=== PATIENT | male | born 1985 | race Caucasian/White ===

== ENCOUNTER 2017-07-21 00:07 | Inpatient (IN) ==
[2017-07-21] MEDS ORDERED: *HR* HYDROmorphone (PF) 1 MG/ML SYRINGE IVP ONE ×3 (00:37→05:02)
[2017-07-21] MEDS ORDERED: 0.9 % Sodium Chloride 1,000 ML IVC ONE ×2 (00:37→07:33)
--- NOTE | 2017-07-21 00:41 | Emergency Department Note ---
Disposition Clinical Impression: Acute cholecystitis, Elevated bilirubin Leukocytosis Qualifiers: Leukocytosis type: unspecified Qualified Code(s): D72.829 - Elevated white blood cell count, unspecified Disposition: Admitted As Inpatient Condition: Good General Adult HPI - General Chief complaint: ED Abdominal Pain Stated complaint: abd pain,fever Time Seen by Provider: 07/21/17 00:18 Source: patient Limitations: no limitations Nursing Notes Reviewed: Yes Vital Signs Reviewed: Yes - History of Present Illness HPI Narrative: 32-year-old male who reports he has had right upper quadrant pain that has been constant since this morning. He been having intermittent right upper quadrant pain for the last 1-2 weeks. He was sent home from the emergency department 2 days ago with symptoms of biliary colic. His pain went away but this morning came back and spine constant since this morning. He has not measured his temperature but said that he felt warm earlier. He has had occasional nausea but no vomiting. He reports no other medical problems and takes no medications aside from [place] which was prescribed for the biliary colic. Pain Scale: 6 Improves with: nothing Worsens with: movement Associated symptoms: Reports: denies other symptoms Treatments Prior to Arrival: none - Related Data Previous Rx's Medication Instructions Recorded Cyclobenzaprine [Flexeril] 10 mg PO TID #20 tablet 06/20/16 Ketorolac [Toradol] 10 mg PO Q6HR #10 tablet 06/20/16 Ondansetron ODT [Zofran ODT] 4 mg SL Q6HR PRN #15 tab.rapdis 07/06/17 HYDROcodone/Acet 5/325 mg [[place] 1 tab PO Q6H PRN #10 tab 07/19/17 5-325 mg] Hyoscyamine SL [Levsin SL] 0.125 mg SL Q4HR PRN #10 tab.subl 07/19/17 Allergies Allergy/AdvReac Type Severity Reaction Status Date / Time Penicillins Allergy Anaphylaxis Verified 07/21/17 00:22 All systems ED: reviewed and negative except as stated. ENT ED: Denies: throat pain Respiratory: Denies: cough Gastrointestinal: Reports: abdominal pain, nausea. Denies: vomiting, diarrhea Genitourinary: Denies: dysuria Musculoskeletal: Denies: back pain Integumentary: Denies: rash Neurological: Denies: headache Endocrine: Reports: fatigue Past Medical History - Past Medical History Medical history: Reports: no medical history Psychiatric history: Reports: no psych history - Social History Smoking Status: Current every day smoker Smokeless Tobacco Status: Yes Alcohol use: Reports: occasionally Drug use: Reports: none Physical Exam - General Limitations: no limitations General appearance: alert - Head Head exam: atraumatic - Eye Eye exam: Present: normal appearance - ENT ENT exam: normal exam, normal oropharynx - Neck Neck exam: Present: normal inspection - Chest Chest inspection: Present: normal inspection - Respiratory Respiratory exam: Present: normal lung sounds bilaterally. Absent: respiratory distress - Cardiovascular Cardiovascular exam: Present: normal rhythm, tachycardia - Abdominal Exam Abdominal exam: Present: soft, tenderness (Right upper quadrant. Positive Mares sign. No guarding or rebound) - Extremities Exam Extremities exam: Present: normal inspection - Neurological Exam Neurological exam: Present: alert, oriented X3 - Psychiatric Psychiatric exam: Present: normal affect, normal mood - Skin Skin exam: Present: warm, dry Course Course Narrative: Bedside ultrasound reveals a thickened gallbladder wall. We will obtain a formal ultrasound and get basic lab work and treat his symptoms. U/S shows acute cholecystitis. Will admit to surgery. CBD is 6mm which is upper limits of normal. However it is larger than his prior u/s. Tbili is mildly elevated. No definite stone in CBD on u/s. Stone is present in neck of gallbladder. Dr Perales recommends cipro/flagyl. He accepts the patient for admission. His vitals are stable. Vital Signs Temperature 98.8 F 07/21/17 00:18 Pulse Rate 101 07/21/17 00:18 Respiratory Rate 16 07/21/17 00:18 Blood Pressure 140/98 07/21/17 00:18 O2 Sat by Pulse Oximetry 96 07/21/17 00:18 Temperature 98.8 F 07/21/17 00:18 Pulse Rate 86 07/21/17 05:16 Respiratory Rate 16 07/21/17 05:16 Blood Pressure 145/90 07/21/17 05:16 O2 Sat by Pulse Oximetry 96 07/21/17 05:16 Oxygen Delivery Oxygen Delivery Room Air Medical Decision Making - Medical Records Medical records reviewed: Yes I reviewed the patient's medical records. - Lab Data Lab results reviewed: Yes I reviewed the patient's lab results. Result diagrams: 07/21/17 00:40 07/21/17 00:40 Lab Results 07/21/17 07/21/17 07/21/17 Range/Units 00:40 00:40 00:40 WBC 16.7 H D (4.3-11.1) K/mcL RBC 4.79 (4.19-5.50) M/mcL Hgb 14.9 (12.9-16.9) g/dL Hct 42.9 (37.5-50.1) % MCV 89.6 (83.0-100.0) fL MCH 31.1 (28.0-33.3) pg MCHC 34.7 (31.6-35.5) g/dL RDW 12.6 (11.5-14.5) % Plt Count 315 (140-400) K/mcL MPV 10.0 (9.4-12.4) fL Immature Gran % 0.5 (0-4) % Seg Neutrophils % 73.3 % Lymphocytes % 10.6 % Monocytes % 14.0 % Eosinophils % 1.4 % Basophils % 0.2 % Neutrophils # 12.2 H (1.6-8.9) K/mcL Lymphocytes # 1.8 (0.6-4.6) K/mcL Monocytes # 2.3 H (0.0-1.3) K/mcL Eosinophils # 0.2 (0.0-0.6) K/mcL Basophils # 0.0 (0.0-0.2) K/mcL Immature Plt Fraction 3.3 (1.1-6.1) % PT (9.4-12.1) Seconds INR APTT (26.0-36.0) Seconds Sodium 139 (136-145) mEq/L Potassium 3.6 (3.5-4.5) mEq/L Chloride 101 (98-109) mEq/L Carbon Dioxide 27 (19-29) mEq/L BUN 9 (8-26) mg/dL Creatinine 0.82 (0.72-1.25) mg/dL Est GFR ( Amer) > 60 (> 60) Est GFR (Non-Af Amer) > 60 (> 60) BUN/Creatinine Ratio 11 (6-26) Glucose 109 H (70-99) mg/dL Calculated Osmolality 287 (280-300) Lactic Acid 0.6 (0.5-2.2) mmol/L Calcium 9.6 (8.6-10.8) mg/dL Total Bilirubin 1.3 H D (0.2-1.2) mg/dL Direct Bilirubin 0.6 H (0.0-0.5) mg/dL Indirect Bilirubin 0.7 (0.0-1.2) mg/dL AST 14 (5-34) Units/L ALT 20 (0-55) Units/L Alkaline Phosphatase 85 (38-126) Units/L Serum Total Protein 8.4 H (6.0-8.3) g/dL Albumin 4.4 (3.5-5.0) g/dL Globulin 4.0 H (2.4-3.5) g/dL Albumin/Globulin Ratio 1.1 (1.1-2.2) 07/21/17 Range/Units 00:40 WBC (4.3-11.1) K/mcL RBC (4.19-5.50) M/mcL Hgb (12.9-16.9) g/dL Hct (37.5-50.1) % MCV (83.0-100.0) fL MCH (28.0-33.3) pg MCHC (31.6-35.5) g/dL RDW (11.5-14.5) % Plt Count (140-400) K/mcL MPV (9.4-12.4) fL Immature Gran % (0-4) % Seg Neutrophils % % Lymphocytes % % Monocytes % % Eosinophils % % Basophils % % Neutrophils # (1.6-8.9) K/mcL Lymphocytes # (0.6-4.6) K/mcL Monocytes # (0.0-1.3) K/mcL Eosinophils # (0.0-0.6) K/mcL Basophils # (0.0-0.2) K/mcL Immature Plt Fraction (1.1-6.1) % PT 12.2 H (9.4-12.1) Seconds INR 1.1 APTT 31.0 (26.0-36.0) Seconds Sodium (136-145) mEq/L Potassium (3.5-4.5) mEq/L Chloride (98-109) mEq/L Carbon Dioxide (19-29) mEq/L BUN (8-26) mg/dL Creatinine (0.72-1.25) mg/dL Est GFR ( Amer) (> 60) Est GFR (Non-Af Amer) (> 60) BUN/Creatinine Ratio (6-26) Glucose (70-99) mg/dL Calculated Osmolality (280-300) Lactic Acid (0.5-2.2) mmol/L Calcium (8.6-10.8) mg/dL Total Bilirubin (0.2-1.2) mg/dL Direct Bilirubin (0.0-0.5) mg/dL Indirect Bilirubin (0.0-1.2) mg/dL AST (5-34) Units/L ALT (0-55) Units/L Alkaline Phosphatase (38-126) Units/L Serum Total Protein (6.0-8.3) g/dL Albumin (3.5-5.0) g/dL Globulin (2.4-3.5) g/dL Albumin/Globulin Ratio (1.1-2.2) - Radiology Data Radiology results reviewed: Yes I reviewed the patient's radiology results. Attestation Statement - Attestation Attestation: I examined this patient and my medical decision-making was reviewed with the Resident Physician. I agree with the documented findings, disposition and treatment plan as described except to the extent set forth below. Acute cholecystitis. Antibiotics initiated. Surgical consultation with Dr. Yao and general surgery. Will admit for possible surgical intervention of acute cholecystitis.
[2017-07-21] MEDS ORDERED: Ondansetron 4 MG/2 ML VIAL IVP ONE ×3 (00:45→14:58)
[2017-07-21 00:54] LABS: Basophils % 0.2 %; Eosinophils # 0.2 K/mcL (0.0-0.6); Eosinophils % 1.4 %; Hematocrit 42.9 % (37.5-50.1); Hemoglobin 14.9 g/dL (12.9-16.9); Immature Granulocytes % 0.5 % (0-4); Immature Platelets 3.3 % (1.1-6.1); Lymphocytes # 1.8 K/mcL (0.6-4.6); Lymphocytes % 10.6 %; Mean Corpuscular HGB Conc 34.7 g/dL (31.6-35.5); Mean Corpuscular Hemoglobin 31.1 pg (28.0-33.3); Mean Corpuscular Volume 89.6 fL (83.0-100.0); Monocytes # 2.3 K/mcL (0.0-1.3); Neutrophils # 12.2 K/mcL (1.6-8.9); Platelet Count 315 K/mcL (140-400); Red Blood Count 4.79 M/mcL (4.19-5.50); Red Cell Distribution Width 12.6 % (11.5-14.5); Segmented Neutrophils % 73.3 %
[2017-07-21 01:03] LABS: INR 1.1; Prothrombin Time 12.2 Seconds (9.4-12.1)
[2017-07-21 01:07] LABS: Alanine Aminotransferase 20 Units/L (0-55); Albumin 4.4 g/dL (3.5-5.0); Albumin/Globulin Ratio 1.1 (1.1-2.2); Alkaline Phosphatase 85 Units/L (38-126); Aspartate Amino Transferase 14 Units/L (5-34); BUN/Creatinine Ratio 11 (6-26); Bilirubin,Direct 0.6 mg/dL (0.0-0.5); Bilirubin,Indirect 0.7 mg/dL (0.0-1.2); Blood Urea Nitrogen 9 mg/dL (8-26); Calcium 9.6 mg/dL (8.6-10.8); Carbon Dioxide 27 mEq/L (19-29); Chloride 101 mEq/L (98-109); Glucose 109 mg/dL (70-99); Osmolality,Calculated 287 (280-300); Potassium 3.6 mEq/L (3.5-4.5); Sodium 139 mEq/L (136-145); Total Protein 8.4 g/dL (6.0-8.3); eGFR For African Americans > 60 (> 60); eGFR For Non-African Americans > 60 (> 60)
[2017-07-21 01:09] LABS: Bilirubin,Total 1.3 mg/dL (0.2-1.2)
[2017-07-21] MEDS ORDERED: MetroNIDAZOLE 500 MG/100 ML 500 MG/100 ML BAG IVPB ONE ×2 (03:29→14:26)
[2017-07-21] MEDS ORDERED: *HR* Promethazine 25 MG/ML VIAL IVP PRN ×3 (07:37→17:12)
[2017-07-21 08:15] LABS: Basophils % 0.2 %; Eosinophils # 0.1 K/mcL (0.0-0.6); Eosinophils % 0.3 %; Hematocrit 42.5 % (37.5-50.1); Hemoglobin 14.7 g/dL (12.9-16.9); Immature Granulocytes % 0.6 % (0-4); Lymphocytes # 1.3 K/mcL (0.6-4.6); Lymphocytes % 6.8 %; Mean Corpuscular HGB Conc 34.6 g/dL (31.6-35.5); Mean Corpuscular Hemoglobin 31.2 pg (28.0-33.3); Mean Corpuscular Volume 90.2 fL (83.0-100.0); Mean Platelet Volume 9.9 fL (9.4-12.4); Monocytes # 2.3 K/mcL (0.0-1.3); Monocytes % 12.2 %; Neutrophils # 14.9 K/mcL (1.6-8.9); Platelet Count 286 K/mcL (140-400); Red Blood Count 4.71 M/mcL (4.19-5.50); Red Cell Distribution Width 12.6 % (11.5-14.5); Segmented Neutrophils % 79.9 %
[2017-07-21] MEDS: *HR* HYDROmorphone (PF) 1 MG/ML SYRINGE IVP PRN ×2 (08:24→12:19)
[2017-07-21] MEDS: MetroNIDAZOLE 500 MG/100 ML 500 MG/100 ML BAG IVPB SCH ×2 (08:32→19:46)
[2017-07-21] MEDS ORDERED: Levofloxacin 750 MG/150 ML 750 MG/150 ML BAG IVPB SCH (09:00)
[2017-07-21 09:14] LABS: Amylase 25 Units/L (25-125); Lipase 14 Units/L (8-78)
--- NOTE | 2017-07-21 09:43 | General Surg History&Physical ---
Date of Encounter: 07/21/17 Time of Encounter: 09:16 Assessment and Plan (1) Acute cholecystitis Current Visit: Yes Status: Acute NPO IVF abx consent for [place] follow up labs to ensure T bili is not worsening The assessment and plan as outlined above was discussed with the patient and/or family members who expressed understanding and agreement. All questions were answered. (2) Elevated bilirubin Current Visit: Yes Status: Acute follow up T bili; if worsening, will consult GI for evaluation of biliary tree prior to surgery The assessment and plan as outlined above was discussed with the patient and/or family members who expressed understanding and agreement. All questions were answered. History of Present Illness Chief complaint: abdominal pain HPI: Mr. Quinonez is a 32 year old male with a PMH significant for obesity who presents with several weekhistory of worsening post prandial abdominal pain localized to the RUQ; does not report radiation to R shoulder, but does report associated nausea, vomiting, PO intolerance and anorexia. States the pain alleviates on its own, but is always present. PResents to the ED for further evaluation Past Med Surg Social Fam HX - Past Medical History Medical history: no medical history Psychiatric history: no psych history - Past Surgical History Surgical History: no surgical history - Social History Smoking Status: Current every day smoker Packs per day: .75 Smokeless Tobacco Status: Yes Alcohol use: occasionally Drug use: none - Additional Family History Additional family history: non contributory Medications and Allergies No Known Home Drugs 07/21/17 [History] 3 Allergy/AdvReac Type Severity Reaction Status Date / Time Penicillins Allergy Anaphylaxis Verified 07/21/17 00:22 Review of Systems All systems PM: A 10-system review of systems was performed and is negative for pertinent findings except as documented above in the HPI. General Surgery Exam Initial Vital Signs Temp Pulse Resp BP Pulse Ox 98.8 F 101 16 140/98 96 07/21/17 00:18 07/21/17 00:18 07/21/17 00:18 07/21/17 00:18 07/21/17 00:18 - General physical appearance well developed, well nourished, no distress - Eyes other (no scleral icterus) - Respiratory normal expansion, normal respiratory effort - Cardiovascular Cardiovascular exam: Present: RRR - Abdomen Abdomen general surgery: Present: soft, tender Abdominal Tenderness: Present: RUQ ((+)ramos's sign) - Integumentary Integumentary general surgery: Present: warm and dry - Neurologic Present: CN 2-12 grossly intact - Psychiatric Psychiatric general surgery: Present: A&Ox3 Results - Labs 07/21/17 07:57 07/21/17 00:40 Abnormal lab results WBC 18.7 K/mcL (4.3-11.1) H 07/21/17 07:57 Neutrophils # 14.9 K/mcL (1.6-8.9) H 07/21/17 07:57 Monocytes # 2.3 K/mcL (0.0-1.3) H 07/21/17 07:57 PT 12.2 Seconds (9.4-12.1) H 07/21/17 00:40 Glucose 109 mg/dL (70-99) H 07/21/17 00:40 Total Bilirubin 1.3 mg/dL (0.2-1.2) H D 07/21/17 00:40 Direct Bilirubin 0.6 mg/dL (0.0-0.5) H 07/21/17 00:40 Serum Total Protein 8.4 g/dL (6.0-8.3) H 07/21/17 00:40 Globulin 4.0 g/dL (2.4-3.5) H 07/21/17 00:40 All other labs normal. - Imaging US - abdomen: report reviewed, image reviewed (cholecystitis)
[2017-07-21 11:16] LABS: Alanine Aminotransferase 18 Units/L (0-55); Albumin 3.7 g/dL (3.5-5.0); Albumin/Globulin Ratio 0.9 (1.1-2.2); Alkaline Phosphatase 76 Units/L (38-126); Aspartate Amino Transferase 13 Units/L (5-34); BUN/Creatinine Ratio 11 (6-26); Bilirubin,Total 1.1 mg/dL (0.2-1.2); Blood Urea Nitrogen 8 mg/dL (8-26); Carbon Dioxide 26 mEq/L (19-29); Chloride 102 mEq/L (98-109); Glucose 112 mg/dL (70-99); Osmolality,Calculated 285 (280-300); Potassium 4.1 mEq/L (3.5-4.5); Sodium 138 mEq/L (136-145); Total Protein 7.7 g/dL (6.0-8.3); eGFR For African Americans > 60 (> 60); eGFR For Non-African Americans > 60 (> 60)
[2017-07-21] MEDS: 0.9 % Sodium Chloride 1,000 ML IVC SCH ×2 (12:29→19:45)
--- NOTE | 2017-07-21 13:46 | Anesthesia Evaluation PreOp ---
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 LOCAL History: Denies Any Significant HX Other Medical History: Denies Any Significant HX, Other (obesity) Anesthesia History: No Prior Anesthetic Complications, Past Anesthesia Alcohol Use: occasionally Drug use: none Medications and Allergies No Known Home Drugs 07/21/17 [History] 3 Allergy/AdvReac Type Severity Reaction Status Date / Time Penicillins Allergy Anaphylaxis Verified 07/21/17 00:22 - Meds/Allergy Pre-op Review Medications Reviewed: Yes Allergies Reviewed: Yes Beta Blockers on Current Med List: No Anesthesia Results - Labs 07/21/17 07:57 07/21/17 10:43 Anesthesia Exam Selected Entries 07/21/17 11:45 Temperature 98.1 F Pulse Rate 96 Respiratory Rate 16 Blood Pressure 136/84 O2 Sat by Pulse Oximetry 96 Weight: 129kg - HEENT Pupil (Motor): EOMI Mallampati: II Teeth: Normal Oral Opening: Greater than 3 - LOAD DISPATCHER LOCAL LOC: Oriented LOAD DISPATCHER LOCAL Motor: Normal RUE, Normal LUE, Normal RLE, Normal LLE, Normal Face LOAD DISPATCHER LOCAL Sensory: Normal: RUE, LUE, RLE, LLE, Face - Cardiac Rhythm: Regular Murmur: None - Pulmonary Breath Sounds: bilateral Clear Respiratory Effort: Symmetrical Anesthesia Assess/Plan ASA Score: 2 Modified Jayy Scale for Level of Consciousness: Cooperative, oriented, and tranquil Anesthetic Plan: General Monitoring Plan: Standard Monitors Recovery Plan: PACU (discussed GA, agrees to proceed)
[2017-07-21] MEDS ORDERED: Dexamethasone 4 MG/ML VIAL ONE (14:08)
[2017-07-21] MEDS ORDERED: Lidocaine -MPF 2% 2 ML VIAL ONE (14:08)
[2017-07-21] MEDS ORDERED: Ondansetron 4 MG/2 ML VIAL ONE (14:08)
[2017-07-21] MEDS ORDERED: *HR* Rocuronium Bromide 50 MG/5 ML VIAL ONE ×2 (14:08→15:35)
[2017-07-21] MEDS ORDERED: *HR* FentaNYL (PF) 100 MCG/2 ML VIAL ONE (14:08)
[2017-07-21] MEDS ORDERED: *HR* HYDROmorphone 2 MG/ML SYRINGE ONE (14:08)
[2017-07-21] MEDS ORDERED: *HR* Succinylcholine 200 MG/10 ML VIAL IVP ONE (14:08)
[2017-07-21] MEDS ORDERED: *HR* Propofol 200 MG/20 ML VIAL IVP ONE (14:08)
[2017-07-21] MEDS ORDERED: Levofloxacin 750 MG/150 ML 750 MG/150 ML BAG IVPB ONE (14:38)
[2017-07-21] MEDS ORDERED: Aztreonam 2,000 MG in D5% in Water (Mini-Bag+) 100 ML IVPB ONE (14:49)
[2017-07-21] MEDS ORDERED: *HR* HYDROmorphone (PF) 1 MG/ML SYRINGE IVP PRN (14:58)
[2017-07-21] MEDS ORDERED: *HR* Labetalol 20 MG/4 ML SYRINGE IVP PRN (14:58)
[2017-07-21] MEDS ORDERED: Ketorolac 15 MG/ML VIAL IVP ONE (14:58)
[2017-07-21] MEDS ORDERED: Dexamethasone 4 MG/ML VIAL IVP ONE (14:58)
[2017-07-21] MEDS ORDERED: *HR* Meperidine 25 MG/ML SYRINGE IVP PRN (14:58)
[2017-07-21] MEDS ORDERED: Aztreonam 2,000 MG in Water for inj. (sterile) 20 ML IVP ONE (15:00)
[2017-07-21] MEDS ORDERED: Neostigmine Methylsulfate 3 MG/3 ML SYRINGE ONE (15:12)
--- NOTE | 2017-07-21 16:43 | Operative Note ---
Date of procedure: 07/21/17 Pre-op diagnosis: acute cholecystitis Post-op diagnosis: same Procedure: laparoscopic cholecystectomy Implants: none Complications: none Anesthesia: GETA Local Anesthetics: 0.5% Sensorcaine HCL SubQ (cc) Surgeon: Rivas Perales Train Dispatcher: Molly Butcher Estimated blood loss (cc): 20 Specimen: gallbladder and contents Condition: stable Disposition: PACU Procedure in Detail: The patient was brought into the operating room suite and was placed in the supine position. Mechanical DVT prophylaxis was applied. A time-in was conducted. The patient underwent smooth induction of anesthesia. Preoperative antibiotics were given. The patient was prepped and draped in the usual fashion. A time-out was held identifying the correct patient, pathology, and procedure. Everyone was in agreement and we began the procedure. Incision to Dissection I started by creating a 10mm supraumbilical incision. Via open Dov technique I did enter into the abdomen. Using a Vicryl on a UR-6 needle, I reapproximated, but did not close the fascia in a [id number] fashion. I inserted the 10mm, 30 degree camera, ensured that I did not cause intraabdominal injury upon entry, and quickly identified the gallbladder. It does possess a 'andrea's egg blue' hue. I created a 5mm incision in the epigastric region followed by two more 5mm incision, one at the midclavicular line, the last at the anterior axillary line. Using laparoscopic graspers I managed to elevate the gallbladder above the liver. I grasp the edge of the gallbladder to retract laterally. Using the [place] instrument as well as the hook-electrocautery, I dissected out the cystic duct and the cystic artery. It should be stated that the gall bladder was significantly inflammed. I had to decompress the gallbladder prior to dissection. I suctioned green bile. In addition, there was ascites above the liver which I also suctioned. There are very dense adhesions and lots of edema with electrocautery. plans were significantly distored. However, I was able to visualize the critical view of safety using blunt dissection to reveal the cystic duct and artery. There was another artery whihc looked consistent with the right hepatic in the pharmacy clinical coordinator aspect of the CVS. Critical view of Safety to Excison of the gallbladder I then clipped both structures using metal clips, two on the stay side, one on the specimen side. Using laparoscopic scissors, I cut between the clip on the specimen side and the first clip on the stay side. Then using tension and counter-tension, I used the electrocautery to excise the gallbladder off of the liver bed. Again, it should be stated that plans were severely distorted. I did encounter bleeding from the liver bed, but this was controlled prior to completing the excision of the gallbladder. Before complete excision, I evaluated the liver bed to ensure there 1.) there was no bleeding, 2. No excessive bile leakage, and 3.) to evaluate my clips. There was no bleeding, bile leakage, and the clips were all the way across both duct and artery. Removal of gallbladder to Closure I switched out the 10mm camera fo the 5mm camera and inserted the endocatch bag into the umbilical port. I placed the specimen into the bag and retrieved it through the umbilical port. I did have to extend my fascial and skin incision to allow for the retrieval of the specimen. I replaced the 5mm camera with the 10mm camera, irrgiated the liver bed and above the liver before suctioning both irrigation fluid and air. I removed the 5mm ports, turned off the insufllation , then removed the 10mm umbilical port. I then close the umbilical fascia using the vicryl suture in an interrupted fashion. All incisions were closed with interrupted 4-0 monocryl, except the umbilical incision which was closed with a running suture, and sealed with dermabond. The patient tolerated the procedure well and went back to PACU in stable condition.
--- NOTE | 2017-07-21 16:50 | Anesthesia Evaluation Post Op ---
Date of Encounter: 07/21/17 Time of Encounter: 16:50 - Vital Signs Vital Signs: Selected Entries 07/21/17 16:21 07/21/17 16:41 Temperature 100.9 F H Pulse Rate 113 Respiratory Rate 13 Blood Pressure 121/82 O2 Sat by Pulse Oximetry 94 Oxygen Flow Rate (LPM) 2 - Lungs Lungs: Clear Ascult./Percussion - Airway Airway: Non-obstructed - Cardiovascular Regular Rate - Mental Status Mental Status: Alert & Oriented, Answers Appropriately - Pain Pain Scale: 0 - Nausea Vomiting Nausea Vomiting: Present - Hydration Hydration: Ice chips, Has not voided - Discharge PostOp Status: Transfer Patient to floor
[2017-07-21] MEDS: D5% in 0.45% NACL w KCl 20 MEQ/1,000 ML MLS IVC SCH (17:57)
[2017-07-21] MEDS: *HR* OxyCODONE/APAP 7.5/325 TABLET PO PRN ×2 (19:40→23:48)
[2017-07-22] MEDS ORDERED: MetroNIDAZOLE 500 MG/100 ML 500 MG/100 ML BAG IVPB SCH
[2017-07-22] MEDS ORDERED: Furosemide 40 MG/4 ML VIAL IVP ONE (00:56)
--- NOTE | 2017-07-22 01:03 | Internal Medicine Consult Note ---
<Henry Quijano - Last Filed: 07/22/17 01:37> Date of Encounter: 07/22/17 Time of Encounter: 01:02 - Assessment and Plan (1) Shortness of breath Current Visit: Yes Status: Acute Assessment and plan: - New onset post op. No previous medical history of cardiac or pulmonary disease - CXR shows bilateral increased opacities with decreased lung volumes. - Saturating in mid 90s on 2L supplimental O2. - Likely secondary to pulmonary edema vs aspiration PNA following surgery - Will give 40 Lasix IV once and monitor for improvement. - Pt is already on flagyl and levaquin - Will closely monitor for decompensation (2) Tachycardia Current Visit: Yes Status: Acute Assessment and plan: - Likely reactive to SOB, pain - Will treat shortness of breath as above and monitor for improvement. - Consider ativan for anxiety if dyspnea improves and he can tolerate it. Internal Medicine - CN: HPI - Data of Consult Consult date: 07/22/17 Requesting Physician: Rivas Perales MD - Consult Narrative Reason for consult: post op SOB History of present illness: Mr. Quinonez is a 32 year old male who underwent laparoscopic cholecystectomy this afternoon for acute cholecystitis. He tolerated the procedure well and was admitted for observation overnight. He has no previous medical history. At approximately midnight this evening, pt began to experience new onset SOB. He was seen at bedside shortly after. He states that his SOB was sudden onset. He denies any symptoms of fevers, chills, nausea, vomiting but admits to some upper right sided chest discomfort that is constant and not reproducible. Chest Xray showed increased bilateral opacities representing either pulmonary edema vs pneumonia. Past Med Surg Social Fam HX - Past Medical History Medical history: no medical history Psychiatric history: no psych history - Past Surgical History Surgical History: no surgical history - Social History Smoking Status: Current every day smoker Packs per day: .75 Smokeless Tobacco Status: Yes Alcohol use: occasionally Drug use: none - Constitutional Constitutional: no chills, no excessive sweating, no fever(s) - Cardiovascular Cardiovascular ROS IM: chest pain, dyspnea, no diaphoresis, no edema, no palpitations - Respiratory Respiratory: cough, dyspnea - Gastrointestinal Gastrointestinal: no abdominal pain - Neurological Neurological ROS: no confusion, no dizziness, no focal weakness Internal Medicine - CN: Meds No Known Home Drugs 07/21/17 [History] 3 Allergy/AdvReac Type Severity Reaction Status Date / Time Penicillins Allergy Anaphylaxis Verified 07/21/17 00:22 Internal Medicine - CN: Exam - Constitutional Vitals: Temp Pulse Resp BP Pulse Ox 98.6 F 122 16 115/70 93 07/21/17 20:54 07/21/17 20:54 07/21/17 20:54 07/21/17 20:54 07/21/17 20:54 General appearance IM: Present: mild distress, A&O X 3, answers questions appropriately - Head Head exam: Present: atraumatic - Respiratory Respiratory exam: Present: decreased breath sounds, rales, tachypnea - Cardiovascular Cardiovascular exam IM: Present: +S1, +S2, tachycardia. Absent: irregular rhythm - GI/Abdominal Additional comments: incisional wounds covered with dermabond. no obvious signs of infection. Internal Medicine - CN: Reslt - Labs CBC & Chem 7: 07/21/17 07:57 07/21/17 10:43 Labs: Short CBC 07/21/17 Range/Units 07:57 WBC 18.7 H (4.3-11.1) K/mcL Hgb 14.7 (12.9-16.9) g/dL Hct 42.5 (37.5-50.1) % Plt Count 286 (140-400) K/mcL Neutrophils # 14.9 H (1.6-8.9) K/mcL BMP 07/21/17 10:43 Sodium 138 Potassium 4.1 Chloride 102 Carbon Dioxide 26 BUN 8 Creatinine 0.75 Glucose 112 H Calcium 9.0 Liver Function 07/21/17 Range/Units 10:43 Total Bilirubin 1.1 (0.2-1.2) mg/dL AST 13 (5-34) Units/L ALT 18 (0-55) Units/L Alkaline Phosphatase 76 (38-126) Units/L Albumin 3.7 (3.5-5.0) g/dL - ABG Interpretation ABG results: PT/INR, D-dimer PT 12.2 Seconds (9.4-12.1) H 07/21/17 00:40 - Impressions Impressions Chest X-Ray 07/22/17 00:10 IMPRESSION: Interval development of patchy bilateral opacity. Although some of this is secondary to bronchovascular crowding from low lung volumes, pulmonary edema and pneumonia is considered as well. Consider further evaluation with PA and lateral chest radiograph. D/ / Karthikeyan Mora MD / Karthikeyan Mora MD Interpreting Provider: Karthikeyan Mora MD Consult Discharge Plan - Plan Referrals: NONE,PCP [Primary Care Provider] - <Eugenio Alex H - Last Filed: 07/22/17 02:58> Date of Encounter: 07/22/17 Internal Medicine - CN: HPI - Data of Consult Requesting Physician: Rivas Perales MD - Consult Narrative History of present illness: Mr. Quinonez is a 32 year old male Internal Medicine - CN: Exam - Constitutional Vitals: Temp Pulse Resp BP Pulse Ox 98.6 F 120 24 137/88 95 07/21/17 23:45 07/21/17 23:45 07/21/17 23:45 07/21/17 23:45 07/21/17 23:45 Internal Medicine - CN: Reslt - Labs CBC & Chem 7: 07/21/17 07:57 07/21/17 10:43 Labs: Short CBC 07/21/17 Range/Units 07:57 WBC 18.7 H (4.3-11.1) K/mcL Hgb 14.7 (12.9-16.9) g/dL Hct 42.5 (37.5-50.1) % Plt Count 286 (140-400) K/mcL Neutrophils # 14.9 H (1.6-8.9) K/mcL BMP 07/21/17 10:43 Sodium 138 Potassium 4.1 Chloride 102 Carbon Dioxide 26 BUN 8 Creatinine 0.75 Glucose 112 H Calcium 9.0 Liver Function 07/21/17 Range/Units 10:43 Total Bilirubin 1.1 (0.2-1.2) mg/dL AST 13 (5-34) Units/L ALT 18 (0-55) Units/L Alkaline Phosphatase 76 (38-126) Units/L Albumin 3.7 (3.5-5.0) g/dL - ABG Interpretation ABG results: PT/INR, D-dimer PT 12.2 Seconds (9.4-12.1) H 07/21/17 00:40 - Impressions Impressions Chest X-Ray 07/22/17 00:10 IMPRESSION: Interval development of patchy bilateral opacity. Although some of this is secondary to bronchovascular crowding from low lung volumes, pulmonary edema and pneumonia is considered as well. Consider further evaluation with PA and lateral chest radiograph. D/ / Karthikeyan Mora MD / Karthikeyan Mora MD Interpreting Provider: Karthikeyan Mora MD - Attending Attestation Chest x-ray shows : Interval development of patchy bilateral opacity. Although some of this is secondary to bronchovascular crowding from low lung volumes, pulmonary edema and pneumonia is considered as well. Acute hypoxic respiratory failure secondary to Possible aspiration pneumonia versus acute pulmonary edema The patient feels better after receiving Lasix although he is a still very tachycardic. Difficult to differentiate between pneumonia and pulmonary edema, order CT scan of the chest stat. Continue Levaquin and Flagyl for now ( allergic to penicillin ), may add more Lasix if pulmonary edema is confirmed Thank you for allowing us to participate in the care of this patient time spent on this consult 40 minutes. High risk for respiratory failure I examined this patient and my medical decision-making was reviewed with the Resident Physician. I agree with the documented findings, disposition and treatment plan as described except to the extent set forth below.
[2017-07-22] MEDS: *HR* HYDROmorphone (PF) 1 MG/ML SYRINGE IVP PRN ×6 (02:06→22:10)
[2017-07-22] MEDS: D5% in 0.45% NACL w KCl 20 MEQ/1,000 ML MLS IVC SCH ×3 (03:41→20:05)
[2017-07-22 05:51] LABS: Basophils % 0.1 %; Hematocrit 39.7 % (37.5-50.1); Hemoglobin 13.9 g/dL (12.9-16.9); Immature Granulocytes % 0.6 % (0-4); Immature Platelets 3.5 % (1.1-6.1); Lymphocytes # 1.7 K/mcL (0.6-4.6); Lymphocytes % 6.9 %; Mean Corpuscular Hemoglobin 31.2 pg (28.0-33.3); Mean Corpuscular Volume 89.2 fL (83.0-100.0); Mean Platelet Volume 9.8 fL (9.4-12.4); Monocytes # 3.9 K/mcL (0.0-1.3); Monocytes % 16.4 %; Neutrophils # 18.2 K/mcL (1.6-8.9); Platelet Count 314 K/mcL (140-400); Red Blood Count 4.45 M/mcL (4.19-5.50); Red Cell Distribution Width 12.9 % (11.5-14.5)
[2017-07-22 06:07] LABS: Alanine Aminotransferase 30 Units/L (0-55); Albumin/Globulin Ratio 0.8 (1.1-2.2); Alkaline Phosphatase 68 Units/L (38-126); Aspartate Amino Transferase 24 Units/L (5-34); BUN/Creatinine Ratio 11 (6-26); Bilirubin,Total 0.8 mg/dL (0.2-1.2); Blood Urea Nitrogen 8 mg/dL (8-26); Calcium 8.4 mg/dL (8.6-10.8); Carbon Dioxide 25 mEq/L (19-29); Chloride 104 mEq/L (98-109); Glucose 133 mg/dL (70-99); Osmolality,Calculated 286 (280-300); Potassium 3.8 mEq/L (3.5-4.5); Sodium 138 mEq/L (136-145); eGFR For African Americans > 60 (> 60); eGFR For Non-African Americans > 60 (> 60)
[2017-07-22] MEDS ORDERED: Acetaminophen 325 MG TABLET PO PRN (06:44)
[2017-07-22] MEDS ORDERED: *HR* Enoxaparin 40 MG/0.4 ML SYRINGE SQ SCH (07:35)
[2017-07-22] MEDS ORDERED: Meropenem 500 MG in 0.9 % Sodium Chloride Mini Bag 100 ML IVPB SCH (08:00)
--- NOTE | 2017-07-22 08:15 | Electrocardiograph Report ---
[place] [id number] Test Date: 2017-07-22 Pat Name: Haris Quinonez Department: 115 Room: 3A15 Gender: M [employer] Tender: [id number] : 1985 Requested By: Rivas Perales Order Number: [id number] Reading MD: Michelle Jacobson Measurements Intervals [place] Rate: 127 P: 23 ND: 151 QRS: 46 QRSD: 91 T: -21 QT: 335 QTc: 410 Interpretive Statements SINUS TACHYCARDIA NONSPECIFIC T-WAVE ABNORMALITY Electronically Signed On 07-22-2017 8:14:11 EDT by Michelle Jacobson
--- NOTE | 2017-07-22 08:47 | General Surgery Progress Note ---
Date of Encounter: 07/22/17 Time of Encounter: 08:44 - Assessment and Plan (1) Acute cholecystitis Current Visit: Yes Status: Acute POD#1 s/p lap [place]; patient significantly improved clinically, but vitals and labs suggest he is still septic - advance diet as tolerated to reg diet - PO pain meds - cont IV abx - repeat labs in AM - continue vitals q4 likley home in AM (2) Sepsis Current Visit: Yes Status: Acute leukocytosis, tachycardia, shortness of breath overnight - related to acute cholecystitis - cont IV abx - repeat CBC in AM - vitals q4 - cont supportive care - expect to resolve in 24-36hrs Qualifiers: Sepsis type: sepsis due to unspecified organism Qualified Code(s): A41.9 - Sepsis, unspecified organism (3) Elevated bilirubin Current Visit: Yes Status: Acute resolved Subjective Patient reports: no new complaints, feels better, still having pain, pain is less, tolerating liquids well, shortness of breath, fever, other (tachycardia) Objective Vital Signs - Last 8 Hours Temp Pulse Resp BP Pulse Ox 07/22/17 08:10 99.7 F H 113 18 125/85 95 07/22/17 06:43 124/87 07/22/17 06:29 101.3 F H 115 18 146/104 94 07/22/17 04:11 99.6 F 122 20 120/70 95 Intake and Output 07/21/17 07/22/17 07/22/17 23:59 07:59 15:59 Intake Total 480 / 480 1200 / 1200 Output Total 570 / 570 900 / 900 Balance -90 / -90 300 / 300 Intake: IV Fluids 1100 / 1100 KCl 20mEq IN D5%-0.45 NACL 20 1000 / 1000 meq In 1,000 ml @ 125 mls/hr IVC .Q8H [facility] Rx#:[id number] Flagyl Premix 500 MG/100 ML 500 100 / 100 mg In 100 ml @ 100 mls/hr IVPB Q8HR [facility] Rx#:[id number] Oral 480 / 480 100 / 100 Output: Urine 550 / 550 900 / 900 Estimated Blood Loss 20 / 20 Other: Meal Dinner Weight 133 kg Patient Weight 07/22/17 23:59 Weight 133 kg - General physical appearance well developed, well nourished, no distress - Eyes other (no scleral icterus) - ENT normocephalic - Respiratory normal expansion, normal respiratory effort - Cardiovascular Cardiovascular exam: Present: RRR - Abdomen Abdomen: Present: soft, tender (appropriately tender, primarily at umbilical incision) - Incision Incision: Present: clean and dry, intact - Integumentary no rash - Neurologic CN 2-12 grossly intact - Psychiatric oriented to time, oriented to person, oriented to place - Labs 07/22/17 05:44 07/22/17 05:44 Diabetes panel 07/21/17 07/22/17 Range/Units 10:43 05:44 Sodium 138 138 (136-145) mEq/L Potassium 4.1 3.8 (3.5-4.5) mEq/L Chloride 102 104 (98-109) mEq/L Carbon Dioxide 26 25 (19-29) mEq/L BUN 8 8 (8-26) mg/dL Creatinine 0.75 0.76 (0.72-1.25) mg/dL Glucose 112 H 133 H (70-99) mg/dL Calcium 9.0 8.4 L (8.6-10.8) mg/dL AST 13 24 (5-34) Units/L ALT 18 30 (0-55) Units/L Alkaline Phosphatase 76 68 (38-126) Units/L Albumin 3.7 3.0 L (3.5-5.0) g/dL Calcium panel 07/21/17 07/22/17 Range/Units 10:43 05:44 Calcium 9.0 8.4 L (8.6-10.8) mg/dL Albumin 3.7 3.0 L (3.5-5.0) g/dL Pituitary panel 07/21/17 07/22/17 Range/Units 10:43 05:44 Sodium 138 138 (136-145) mEq/L Potassium 4.1 3.8 (3.5-4.5) mEq/L Chloride 102 104 (98-109) mEq/L Carbon Dioxide 26 25 (19-29) mEq/L BUN 8 8 (8-26) mg/dL Creatinine 0.75 0.76 (0.72-1.25) mg/dL Glucose 112 H 133 H (70-99) mg/dL Calcium 9.0 8.4 L (8.6-10.8) mg/dL Adrenal panel 07/21/17 07/22/17 Range/Units 10:43 05:44 Sodium 138 138 (136-145) mEq/L Potassium 4.1 3.8 (3.5-4.5) mEq/L Chloride 102 104 (98-109) mEq/L Carbon Dioxide 26 25 (19-29) mEq/L BUN 8 8 (8-26) mg/dL Creatinine 0.75 0.76 (0.72-1.25) mg/dL Glucose 112 H 133 H (70-99) mg/dL Calcium 9.0 8.4 L (8.6-10.8) mg/dL Total Bilirubin 1.1 0.8 (0.2-1.2) mg/dL AST 13 24 (5-34) Units/L ALT 18 30 (0-55) Units/L Alkaline Phosphatase 76 68 (38-126) Units/L Albumin 3.7 3.0 L (3.5-5.0) g/dL - VTE Documentation of Mechanical Device: Intermittent pneumatic compression device Consult Discharge Plan - Plan Referrals: NONE,PCP [Primary Care Provider] -
[2017-07-22] MEDS ORDERED: Levofloxacin 750 MG/150 ML 750 MG/150 ML BAG IVPB SCH (09:00)
[2017-07-22] MEDS: *HR* Enoxaparin 40 MG/0.4 ML SYRINGE SQ SCH (09:00)
--- NOTE | 2017-07-22 09:26 | Event Note ---
Date of Encounter: 07/22/17 Time of Encounter: 08:45 Patient is feeling better this morning. Remains tachycardic. Did have fever earlier this morning with MAXIMUM TEMPERATURE of 101.3. Continue management for sepsis related to acute cholecystitis versus possible aspiration pneumonitis. Continue current antibiotics. IV hydration. Monitor vitals closely. Follow culture results. Incentive spirometry. We will repeat chest x -ray in AM
[2017-07-22] MEDS: *HR* OxyCODONE/APAP 7.5/325 TABLET PO PRN ×2 (13:11→21:00)
[2017-07-22] MEDS: Meropenem 1,000 MG in Water for inj. (sterile) 10 ML IVP SCH ×2 (13:47→21:00)
[2017-07-23] MEDS: *HR* HYDROmorphone (PF) 1 MG/ML SYRINGE IVP PRN ×3 (02:43→12:42)
[2017-07-23] MEDS: Meropenem 1,000 MG in Water for inj. (sterile) 10 ML IVP SCH ×3 (03:47→19:26)
[2017-07-23] MEDS: D5% in 0.45% NACL w KCl 20 MEQ/1,000 ML MLS IVC SCH ×2 (04:22→14:05)
[2017-07-23 05:49] LABS: Basophils % 0.2 %; Eosinophils # 0.2 K/mcL (0.0-0.6); Eosinophils % 1.1 %; Hematocrit 36.4 % (37.5-50.1); Immature Granulocytes % 0.6 % (0-4); Lymphocytes # 1.9 K/mcL (0.6-4.6); Lymphocytes % 12.3 %; Mean Corpuscular Hemoglobin 30.8 pg (28.0-33.3); Mean Corpuscular Volume 93.3 fL (83.0-100.0); Mean Platelet Volume 10.3 fL (9.4-12.4); Monocytes # 2.1 K/mcL (0.0-1.3); Monocytes % 13.2 %; Neutrophils # 11.5 K/mcL (1.6-8.9); Platelet Count 291 K/mcL (140-400); Red Cell Distribution Width 13.2 % (11.5-14.5); Segmented Neutrophils % 72.6 %
[2017-07-23] MEDS: *HR* Enoxaparin 40 MG/0.4 ML SYRINGE SQ SCH (06:01)
[2017-07-23] MEDS: *HR* OxyCODONE/APAP 7.5/325 TABLET PO PRN ×4 (06:06→21:13)
--- NOTE | 2017-07-23 07:56 | Discharge Summary ---
Date of Encounter: 07/24/17 Time of Encounter: 09:25 - Discharge Diagnosis (1) Acute cholecystitis Priority: Primary Status: Acute (2) Sepsis Priority: Primary Status: Acute Qualifiers: Sepsis type: sepsis due to unspecified organism Qualified Code(s): A41.9 - Sepsis, unspecified organism (3) Elevated bilirubin Priority: Secondary Status: Acute - Discharge Medications Prescriptions: OxyCODONE/APAP 7.5/325 [Percocet 7.5/325 MG] 1 each PO Q6HR PRN 7 Days #28 tablet PRN Reason: Pain Docusate [Colace] 100 mg PO DAILY 7 Days #7 capsule levoFLOXacin [Levaquin] 750 mg PO DAILY 6 Days #6 tablet metroNIDAZOLE [Flagyl] 500 mg PO TID 6 Days #18 tablet Tramadol HCl [Ultram] 50 mg PO BID PRN 7 Days #14 tab PRN Reason: Pain Home Medications: Docusate [Colace] 100 mg PO DAILY 7 Days #7 capsule 07/23/17 [Rx] OxyCODONE/APAP 7.5/325 [Percocet 7.5/325 MG] 1 each PO Q6HR PRN 7 Days #28 tablet 07/23/17 [Rx] Tramadol HCl [Ultram] 50 mg PO BID PRN 7 Days #14 tab 07/23/17 [Rx] levoFLOXacin [Levaquin] 750 mg PO DAILY 6 Days #6 tablet 07/23/17 [Rx] metroNIDAZOLE [Flagyl] 500 mg PO TID 6 Days #18 tablet 07/23/17 [Rx] Allergies/Adverse Reactions: 3 Allergy/AdvReac Type Severity Reaction Status Date / Time Penicillins Allergy Anaphylaxis Verified 07/21/17 00:22 General Surgery Exam Initial Vital Signs Temp Pulse Resp BP Pulse Ox 98.8 F 101 16 140/98 96 07/21/17 00:18 07/21/17 00:18 07/21/17 00:18 07/21/17 00:18 07/21/17 00:18 - General physical appearance well nourished - Eyes other (no scleral icterus), normal ocular movement - Respiratory normal expansion, normal respiratory effort, clear to auscultation - Cardiovascular Cardiovascular exam: Present: RRR - Abdomen Abdomen general surgery: Present: soft, tender (appropriately tender to palpation; non peritoneal) - Incision Incision: Present: clean and dry, intact - Integumentary Integumentary general surgery: Present: warm and dry - Neurologic Present: CN 2-12 grossly intact - Psychiatric Psychiatric general surgery: Present: A&Ox3 Date of admission: 07/21/17 07:33 Primary care physician: PCP SCOTTY Consults: 07/22/17 00:02 Consult to Hospitalist [CONS] Routine Consulting Provider: Hospitalist Marie Reason for Consult: SOB Call Completed: Yes Discharging clinician: Rivas Perales Anticipated date of discharge: 07/24/17 - Patient Status Disposition: Home, Self-Care Condition: Good Functional capacity at discharge: independent ambulation Overall status at discharge: patient is back to baseline - Discharge Instructions Instructions: Sepsis (DC) Follow Up With: Rivas Perales MD [Non-Partnered Physician] - NONE,PCP [Primary Care Provider] - Additional Instructions: Pain Narcotics are prescribed. 1-2 tabs every 6 hours. Please take with meals. DO NOT drive while taking narcotics. Activity As tolerated. However, I encourage you to limit heaving lifting and strenuous activity until evaluated in clinic. Diet As tolerated. Please start with liquids for the first 6 hours after surgery. Your meal after 6 hours can be a regular diet. Bowel Regimen As long as you are taking narcotics, please take the stool softner daily. Warnings If you experience significant redness around the incision or drainage from the incision that is purulent or malodorous, or you experience fevers, chills, or food intolerance (including nausea, vomiting, abdominal pain or distension), jaundice or yellow skin, eyes, tongue/cheek, or any symptoms you feel warrant evaluation, please call the office. If unable to reach the office, please go to nearest urgent care center or emergency department - Diet and Activity Activity: increase activity as tolerated, return to work once cleared by your PCP/specialist (see me in the office prior to clearance for work), resume usual activities as tolerated Diet: advance to your usual diet - Hospital Course Hospital course: Mr. Quinonez is a 32 year old male with a PMH significant for obesity who presented with sepsis secondary to acute cholecystitis. He was started on antibiotics and taken to the operating room. He underwent a laparoscopic cholecystectomy on 07/21. Post procedurally he was started on a liquid diet. POD#1 - He tolerated the liquid diet and was advanced to a regular diet. He had an episode of shortness of breath, he was tachycardic, and requiring oxygen to keep his oxygen saturations above 92%, all related to his sepsis. The decision was made to keep him another day so he could resolve his sepsis. I continued supportive care with IVF, pain control and IV antibiotics POD#2: He was tolerating a regular diet. Having good UOP. He is ambulating and had good pain control. His vitals and WBC were trending back to normal range. He met discharge criteria and was subsequently discharged home. Time spent discussing smoking cessation with patient: more than 10 minutes - Time Spent with Patient Total time spent providing and/or coordinating discharge services: Greater than 30 minutes Specific discharge activities: activity as tolerated. no driving on narocotics. diet as tolerated. if you experience any worsening abdominal pain , jaundice (yellowing of your skin), slceral icterus (yellowing of your eyes), nausea, vomiting, poor tolerance of food or liquids, chest pain, shortness of breath, redness of your incisions or drainage or any symptoms you feel warrant evaluation, call our office of report to the emergency department. Procedures and tests throughout hospitalization: US: 07/21 -cholelithiasis. 1 stone appears impacted in the gallbladder neck. The wall of the gallbladder is moderately to markedly thickened measuring up to 1.9 cm. There is acoustic shadowing from the gallbladder wall suggesting possible emphysematous cholecystitis. There is mild pericholecystic fluid. There was a positive sonographic Mares sign. Common bile duct is upper limits of normal measuring 6 mm. Common duct previously measured 3 mm. WBC: 15.8-->23.9 Tbili: 1.3 Labs on day of discharge: Labs from last 24 hours 07/23/17 05:03 WBC 15.8 H RBC 3.90 L Hgb 12.0 L D Hct 36.4 L MCV 93.3 MCH 30.8 MCHC 33.0 RDW 13.2 Plt Count 291 MPV 10.3 Immature Gran % 0.6 Seg Neutrophils % 72.6 Lymphocytes % 12.3 Monocytes % 13.2 Eosinophils % 1.1 Basophils % 0.2 Neutrophils # 11.5 H Lymphocytes # 1.9 Monocytes # 2.1 H Eosinophils # 0.2 Basophils # 0.0 - Impressions ITS Impressions Chest X-Ray 07/22/17 00:10 IMPRESSION: Interval development of patchy bilateral opacity. Although some of this is secondary to bronchovascular crowding from low lung volumes, pulmonary edema and pneumonia is considered as well. Consider further evaluation with PA and lateral chest radiograph. D/ / Karthikeyan Mora MD / Karthikeyan Mora MD Interpreting Provider: Karthikeyan Mora MD Chest CT 07/22/17 02:53 IMPRESSION: 1. Bilateral lower lobe atelectasis versus pneumonia. 2. Scattered pulmonary nodules are probably granulomas. Recommend follow-up: In a low-risk patient, CT at 3-6 months, then consider CT at 18-24 months. In a high-risk patient, CT at 3-6 months, then CT at 18-24 months. D/ / Kasi Calderon MD / Kasi Calderon MD Interpreting Provider: Kasi Calderon MD Chest X-Ray 07/23/17 04:00 IMPRESSION: Improving bilateral airspace disease. D/ / Kasi Calderon MD / Kasi Calderon MD Interpreting Provider: Kasi Calderon MD
[2017-07-23] MEDS ORDERED: Ipratropium/Albuterol Neb 3 ML IH PRN (09:25)
[2017-07-23] MEDS ORDERED: Ipratropium/Albuterol Neb 3 ML IH ONE (09:25)
--- NOTE | 2017-07-23 12:41 | Internal Med Progress Note ---
Date of Encounter: 07/23/17 Time of Encounter: 11:45 - Assessment and plan (1) Pneumonia Current Visit: Yes Status: Acute Assessment and plan: Most likely chemical pneumonitis due to gastric secretions. Chest x-ray done today shows improving bibasilar space disease. WBC count is improving. Patient is receiving IV antibiotics for acute cholecystitis. Wean FiO2. Qualifiers: Pneumonia type: aspiration pneumonia Aspiration pneumonia type: due to gastric secretions Laterality: bilateral Lung location: lower lobe of lung Qualified Code(s): J69.0 - Pneumonitis due to inhalation of food and vomit (2) Acute cholecystitis Current Visit: Yes Status: Acute Assessment and plan: Continue supportive care per surgery recommendations. Pain control. Transition to oral pain medications. Continue antibiotics per surgery recommendations (3) Sepsis Current Visit: Yes Status: Acute Assessment and plan: Resolving. Due to pneumonitis and cholecystitis. Qualifiers: Sepsis type: sepsis due to unspecified organism Qualified Code(s): A41.9 - Sepsis, unspecified organism (4) Shortness of breath Current Visit: Yes Status: Acute Assessment and plan: Most likely due to atelectasis and pneumonitis. Wean FiO2. Patient also has a is a chronic smoker. Can use bronchodilators as needed to help treat symptoms if he develops wheezing. - Subjective Interval history: Patient is awake and alert. Sitting up in chair. He says he feels miserable due to pain and reports shortness of breath. He is concerned that he has not yet ambulated. Pain controlled when he gets his pain medications but worsens soon after. Denies any chest pain. No fever reported overnight. - Constitutional Vitals: Temp Pulse Resp BP Pulse Ox 98.4 F 112 21 116/71 94 07/23/17 06:55 07/23/17 06:55 07/23/17 10:11 07/23/17 06:55 07/23/17 10:11 General appearance: Present: mild distress, A&O X 3, answers questions appropriately - Respiratory Respiratory exam: Present: prolonged expiratory phase. Absent: accessory muscle use, rales, rhonchi, wheezes - Cardiovascular Cardiovascular exam: Present: RRR, +S1, +S2. Absent: diastolic murmur, gallop, rubs, systolic murmur - GI/Abdominal GI/Abdominal exam: Present: normal bowel sounds, soft, no peritoneal signs. Absent: distended, tenderness - Extremities Exam Extremities exam: Present: warm, radial pulses palpable and symmetrical. Absent : calf tenderness, cyanotic, pedal edema Internal Medicine: Result - Labs CBC & Chem 7: 07/23/17 05:03 07/22/17 05:44 Labs: Short CBC 07/23/17 Range/Units 05:03 WBC 15.8 H (4.3-11.1) K/mcL Hgb 12.0 L D (12.9-16.9) g/dL Hct 36.4 L (37.5-50.1) % Plt Count 291 (140-400) K/mcL Neutrophils # 11.5 H (1.6-8.9) K/mcL - ABG Interpretation ABG results: PT/INR, D-dimer PT 12.2 Seconds (9.4-12.1) H 07/21/17 00:40 - Impressions Impressions Chest X-Ray 07/23/17 04:00 IMPRESSION: Improving bilateral airspace disease. D/ / Kasi Calderon MD / Kasi Calderon MD Interpreting Provider: Kasi Calderon MD Chest X-Ray 07/23/17 11:50 IMPRESSION: Stable small left lower lobe infiltrate which may represent atelectasis versus pneumonia. D/ / 07/23/2017 12:36:34 Greyson Hilliard MD / [facility] Interpreting Provider: Greyson Hilliard MD - VTE Documentation of Mechanical Device: Intermittent pneumatic compression device Consult Discharge Plan - Plan Instructions: Sepsis (DC) Additional Instructions: Pain Narcotics are prescribed. 1-2 tabs every 6 hours. Please take with meals. DO NOT drive while taking narcotics. Activity As tolerated. However, I encourage you to limit heaving lifting and strenuous activity until evaluated in clinic. Diet As tolerated. Please start with liquids for the first 6 hours after surgery. Your meal after 6 hours can be a regular diet. Bowel Regimen As long as you are taking narcotics, please take the stool softner daily. Warnings If you experience significant redness around the incision or drainage from the incision that is purulent or malodorous, or you experience fevers, chills, or food intolerance (including nausea, vomiting, abdominal pain or distension), jaundice or yellow skin, eyes, tongue/cheek, or any symptoms you feel warrant evaluation, please call the office. If unable to reach the office, please go to nearest urgent care center or emergency department Referrals: Rivas Perales MD [Non-Partnered Physician] - NONE,PCP [Primary Care Provider] - Prescriptions: OxyCODONE/APAP 7.5/325 [Percocet 7.5/325 MG] 1 each PO Q6HR PRN 7 Days #28 tablet PRN Reason: Pain Docusate [Colace] 100 mg PO DAILY 7 Days #7 capsule levoFLOXacin [Levaquin] 750 mg PO DAILY 6 Days #6 tablet metroNIDAZOLE [Flagyl] 500 mg PO TID 6 Days #18 tablet Tramadol HCl [Ultram] 50 mg PO BID PRN 7 Days #14 tab PRN Reason: Pain
[2017-07-23] MEDS: Ibuprofen 800 MG TABLET PO SCH ×2 (14:04→19:27)
[2017-07-23 14:51] LABS: Alanine Aminotransferase 29 Units/L (0-55); Albumin 3.1 g/dL (3.5-5.0); Albumin/Globulin Ratio 0.7 (1.1-2.2); Alkaline Phosphatase 82 Units/L (38-126); Aspartate Amino Transferase 20 Units/L (5-34); BUN/Creatinine Ratio 14 (6-26); Bilirubin,Total 0.7 mg/dL (0.2-1.2); Blood Urea Nitrogen 11 mg/dL (8-26); Calcium 9.2 mg/dL (8.6-10.8); Carbon Dioxide 26 mEq/L (19-29); Chloride 99 mEq/L (98-109); Globulin 4.2 g/dL (2.4-3.5); Glucose 125 mg/dL (70-99); Magnesium 1.9 mg/dL (1.6-2.6); Osmolality,Calculated 281 (280-300); Phosphorous 2.7 mg/dL (2.3-4.7); Potassium 3.9 mEq/L (3.5-4.5); Sodium 135 mEq/L (136-145); Total Protein 7.3 g/dL (6.0-8.3); eGFR For African Americans > 60 (> 60); eGFR For Non-African Americans > 60 (> 60)
[2017-07-24] MEDS: Meropenem 1,000 MG in Water for inj. (sterile) 10 ML IVP SCH (04:05)
[2017-07-24] MEDS: Ibuprofen 800 MG TABLET PO SCH (04:06)
[2017-07-24 04:45] LABS: Basophils % 0.3 %; Eosinophils # 0.4 K/mcL (0.0-0.6); Eosinophils % 3.1 %; Hematocrit 35.9 % (37.5-50.1); Hemoglobin 12.2 g/dL (12.9-16.9); Immature Granulocytes % 0.9 % (0-4); Lymphocytes # 1.7 K/mcL (0.6-4.6); Lymphocytes % 12.2 %; Mean Corpuscular Hemoglobin 30.4 pg (28.0-33.3); Mean Corpuscular Volume 89.5 fL (83.0-100.0); Mean Platelet Volume 10.3 fL (9.4-12.4); Monocytes # 2.1 K/mcL (0.0-1.3); Neutrophils # 9.8 K/mcL (1.6-8.9); Platelet Count 295 K/mcL (140-400); Red Blood Count 4.01 M/mcL (4.19-5.50); Red Cell Distribution Width 13.2 % (11.5-14.5); Segmented Neutrophils % 68.5 %
[2017-07-24] MEDS: *HR* Enoxaparin 40 MG/0.4 ML SYRINGE SQ SCH (05:57)
[2017-07-24] MEDS: *HR* OxyCODONE/APAP 7.5/325 TABLET PO PRN (06:02)
[2017-07-24 07:50] VITALS: BP 101/68
== END 2017-07-24 10:30 | disposition home or self-care (01) | DRG 417 ==
LOC: 3ANU 00:07 → EMEROO 00:07 → 3ANU 06:06
PROVIDERS: ADMIT Surgery; ATTEND Surgery

== ENCOUNTER 2017-08-05 10:50 | Inpatient (IN) ==
[~2017-08-05 10:50] MED LIST: *HR* Amiodarone 150 MG/3 ML VIAL IVPB ONE; *HR* Amiodarone Premix 360 MG/200 ML BAG IVC ONE; Aminoglycoside Consult 1 EACH MC ONE; Clindamycin 600 MG/50 ML IV.SOLN IVPB ONE
[2017-08-05] MEDS ORDERED: *HR* Adenosine 6 MG/2 ML VIAL IVP ONE ×2 (10:59→11:28)
[2017-08-05] MEDS ORDERED: Calcium Gluconate 1,000 MG in D5% in Water 100 ML IVPB ONE (11:11)
[2017-08-05] MEDS ORDERED: 0.9 % Sodium Chloride 2,000 ML ONE (11:12)
[2017-08-05] MEDS ORDERED: Aspirin 325 MG TABLET PO ONE (11:28)
[2017-08-05] MEDS ORDERED: 0.9 % Sodium Chloride 1,000 ML IVC ONE (11:28)
[2017-08-05] MEDS ORDERED: Amiodarone Premix 150 MG/100 ML BAG IVPB ONE (11:32)
[2017-08-05] MEDS ORDERED: *HR* Heparin 5,000 UNIT/ML VIAL IVP PRN ×2 (11:36)
[2017-08-05] MEDS ORDERED: *HR* Heparin 5,000 UNIT/ML VIAL IVP ONE (11:36)
[2017-08-05] MEDS ORDERED: *HR* Midazolam HCl 2 MG/2 ML VIAL ONE ×2 (11:42→11:44)
[2017-08-05] MEDS ORDERED: *HR* FentaNYL (PF) 100 MCG/2 ML VIAL ONE (11:42)
[2017-08-05 11:43] LABS: Basophils % 0.1 %; Hematocrit 32.1 % (37.5-50.1); Hemoglobin 10.6 g/dL (12.9-16.9); Immature Granulocytes % 1.1 % (0-4); Lymphocytes # 1.3 K/mcL (0.6-4.6); Lymphocytes % 5.7 %; Mean Corpuscular Hemoglobin 30.2 pg (28.0-33.3); Mean Corpuscular Volume 91.5 fL (83.0-100.0); Mean Platelet Volume 9.3 fL (9.4-12.4); Monocytes # 3.3 K/mcL (0.0-1.3); Monocytes % 14.3 %; Neutrophils # 18.2 K/mcL (1.6-8.9); Platelet Count 590 K/mcL (140-400); Red Blood Count 3.51 M/mcL (4.19-5.50); Red Cell Distribution Width 13.3 % (11.5-14.5); Segmented Neutrophils % 78.8 %
[2017-08-05] MEDS ORDERED: Heparin 25,000 UNIT/500 ML D5W 25,000 UNIT/500 ML MLS IVC SCH (11:45)
[2017-08-05 11:49] LABS: Activated Partial Thrombo Time 32.3 Seconds (26.0-36.0)
[2017-08-05 11:53] LABS: BUN/Creatinine Ratio 15 (6-26); Blood Urea Nitrogen 12 mg/dL (8-26); Calcium 8.5 mg/dL (8.6-10.8); Carbon Dioxide 23 mEq/L (19-29); Chloride 104 mEq/L (98-109); Glucose 123 mg/dL (70-99); Osmolality,Calculated 281 (280-300); Potassium 4.2 mEq/L (3.5-4.5); Sodium 135 mEq/L (136-145); eGFR For African Americans > 60 (> 60); eGFR For Non-African Americans > 60 (> 60)
[2017-08-05 12:15] LABS: Thyroid Stimulating Hormone 0.657 mcIU/mL (0.350-4.840)
[2017-08-05] MEDS ORDERED: Cefepime HCl 2,000 MG in Water for inj. (sterile) 20 ML IVP SCH (12:17)
[2017-08-05] MEDS ORDERED: Vancomycin 2,000 MG in D5% in Water 500 ML IVPB ONE (12:17)
[2017-08-05] MEDS ORDERED: Ondansetron 4 MG/2 ML VIAL IVP ONE (12:18)
[2017-08-05] MEDS ORDERED: 0.9 % Sodium Chloride 1,000 ML ONE ×2 (12:23→12:46)
[2017-08-05] MEDS ORDERED: *HR* Midazolam HCl 5 MG/5 ML VIAL IVP ONE ×4 (12:25→14:02)
[2017-08-05] MEDS ORDERED: *HR* FentaNYL (PF) 250 MCG/5 ML VIAL ONE ×3 (12:25→13:03)
[2017-08-05 12:26] LABS: INR 1.6; Prothrombin Time 16.9 Seconds (9.4-12.1)
[2017-08-05] MEDS ORDERED: *HR* Etomidate 20 MG/10 ML AMPUL IVP ONE (12:28)
[2017-08-05] MEDS ORDERED: *HR* Rocuronium Bromide 50 MG/5 ML VIAL ONE ×3 (12:28→14:01)
[2017-08-05] MEDS ORDERED: *HR* EPINEPHrine 1 MG/ML AMPUL ONE ×2 (12:28→12:29)
[2017-08-05] MEDS ORDERED: *HR* Heparin 10,000 UNIT/10 ML VIAL ONE (12:46)
[2017-08-05] MEDS ORDERED: Verapamil 5 MG/2 ML VIAL ONE (12:46)
[2017-08-05] MEDS ORDERED: Heparin 1,000 UNITS/500 mL NS 500 ML ONE (12:46)
[2017-08-05] MEDS ORDERED: Nitroglycerin 1,000 MCG/10 ML VIAL IV ONE (12:46)
[2017-08-05] MEDS ORDERED: *HR* Phenylephrine 10 MG/ML VIAL ONE (12:51)
--- NOTE | 2017-08-05 12:56 | Invasive Diagnostic Lab Proc ---
Name: Haris Quinonez Date of Study: 08/05/2017 Date: 1985 Ht: 68.1in Medical Record#: [id number] Age: 32 Wt: 291.01lb Gender: Male BSA: 2.4 Order #: [id number] BMI: 44.1 Physicians Procedure Physician: Uriel Ibarra MD, [facility] Referring MD: Referring MD: Indications Indication Cardiac Tamponade Procedures Performed Procedure PERICARDIOCENTESIS Pre-Procedure Checklist Informed consent is complete signed and on chart. H&P is on chart. ID band is on and ID verified with patient. Patient NPO for procedure The procedure was described for the patient and questions were answered. Blood Pressure: 138/79 ECG is on chart. Rhythm: Sinus Tachycardia Plan of Care Patient will tolerate the procedure without complications. Adequate level of comfort will be maintained. Hemodynamics will remain stable Patient will recover from procedure without complications. Respiratory function will be maintained. Cardiac rhythm will remain stable. Patient temperature will be maintained. Patient and/or family have verbalized understanding of the procedure. Patient Education Chief Complaint/Reason for Test: Pericardialcentesis Developmental Category: Adult (18-64 years) Developmentally Appropriate for Age: Yes Learning Barriers: None Education Needs: Procedure Education Method: Verbal Information Taught: Pericardialcentesis Educational Evaluation: Able to repeat information Intravenous Access Time IV Size Location DC'd Fluid/Drip Rate Units RN 18g 1 1/4" Patent On Arrival Lt Antecubital Amiodarone 1 mg/hr Ruth Sarabia RN Allergies Penicillins Vital Signs Time BP (mmHg) HR (bpm) O2 Sat. RR (bpm) LOC 12:20 PM / % 4 = Oriented but drowsy 12:19 PM 138 / 79 182 100 % 43 12:24 PM 104 / 93 157 100 % 23 12:29 PM 104 / 82 168 100 % 46 Procedural Medications Time Medication Dose Units Method Given By 12:24 PM Lidocaine 2% 8 ml Subcutaneous Uriel Ibarra MD, FACC 12:25 PM Versed 2 mg Intravenous uRth Sarabia RN 12:25 PM Fentanyl 25 mcg Intravenous Ruth Sarabia RN 12:32 PM Versed 1 mg Intravenous Ruth Sarabia RN 12:32 PM Fentanyl 25 mcg Intravenous Ruth Sarabia RN Jp Score Preprocedure Postprocedure Activity 2- Moves 4 extremities sustained head lift Activity 2- Moves 4 extremities sustained head lift Circulation 2- SBP +/= 20 points of pre-anesthetic level Circulation 2- SBP +/= 20 points of pre-anesthetic level Consciousness 2- Awake and alert oriented x 3 Consciousness 2- Awake and alert oriented x 3 O2 Saturation 2- Able to maintain O2 satruation of 92% on room air O2 Saturation 2- Able to maintain O2 satruation of 92% on room air Respiratory 2- Able to deep breathe and cough well Respiratory 2- Able to deep breathe and cough well Total Score 10 Total Score 10 Contrast Agent: Isovue Procedure Log Time Note Enter By 12:17 PM Pt arrived to [facility] laboratory assistant 2 at 12:16 [facility] 12:17 PM Patient charges- Angio tray pack, Navilyst 3mm J, Pulse Oximetry and ACIST tubing and transducer [facility] 12:17 PM CathStat 12:18 PM Hair removed from procedure site in holding area using clippers. Chest prepped with Chloraprep by Jenni Dickson RN, safety strap applied then patient was draped. Skin intact. [facility] 12:18 PM Procedure start 12:18 12:19 PM Vitals capture started with the following parameters, Patient=Adult, Interval=5 min, Initial Owoazexd=205 mmHg, Deflation Rate=5 mmHg, Cuff placed on Right Arm 12:19 PM TE=003 bpm, ZBAQ=932/79 mmhg, DxG7=718.0 %, Resp=43 B/min 12:23 PM Equipment: Swapna Tray and Angio tray pack. 12:23 PM [facility] 12:24 PM LJ=396 bpm, QFUT=654/93 mmhg, EuR9=197.0 %, Resp=23 B/min 12:24 PM Time: 12:24 8 ml Lidocaine 2% to mid chest Subcutaneous Given by Uriel Ibarra MD, [facility] 12:25 PM Time: 12:25 Versed 2 mg Intravenous Given by Ruth Sarabia RN [facility] 12:25 PM Time: 12:25 Fentanyl 25 mcg Intravenous Given by Ruth Sarabia RN [facility] 12:28 PM NIBP STAT measurement started. 12:29 PM UW=725 bpm, CBIK=892/82 mmhg, KgO0=993.0 %, Resp=46 B/min 12:31 PM Time: 12:20LOC: 4 = Oriented but drowsy [facility] 12:31 PM echo used to assist with access [facility] 12:32 PM Time: 12:32 Versed 1 mg Intravenous [facility] 12:33 PM Time: 12:32 Fentanyl 25 mcg Intravenous Given by [facility] 12:35 PM Vitals capture stopped. 12:[address] Calderon arrived to lab. Patient transferred to the OR. [facility] 12:38 PM Procedure completed at 12:38 [facility] 12:49 PM Complications: None monalisa Complications Complication None Hemodynamics Post Procedure Information Site Checks Time Location Status Staff Sheath In? Note subxyphoid Oozing Darinel De La Torre RT (R) Pulses Updated by RT Tuan (R) on 08/05/2017 12:49:51 PM electronically signed on 08/05/2017 12:51:53 PM with status of Final
--- NOTE | 2017-08-05 13:12 | Anesthesia Evaluation PreOp ---
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 Anesthesia History: No Prior Anesthetic Complications, Past Anesthesia (tanvir [place] 07/21) Alcohol Use: occasionally Drug use: none Medications and Allergies No Known Home Drugs 08/05/17 [History] 3 Allergy/AdvReac Type Severity Reaction Status Date / Time Penicillins Allergy Anaphylaxis Verified 07/21/17 00:22 - Meds/Allergy Pre-op Review Medications Reviewed: Yes Allergies Reviewed: Yes Beta Blockers on Current Med List: No Anesthesia Results - Labs 08/05/17 11:36 08/05/17 11:36 Anesthesia Exam Selected Entries 08/05/17 10:52 Temperature 98.2 F Pulse Rate 206 Respiratory Rate 18 Blood Pressure 100/87 O2 Sat by Pulse Oximetry 97 Oxygen Flow Rate (LPM) 2 NPO (# of Hours): unknown - HEENT Pupil (Motor): EOMI Mallampati: IV Teeth: Normal Oral Opening: Greater than 3 - 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
--- NOTE | 2017-08-05 13:37 | Anesthesia Procedures ---
Date of Encounter: 08/05/17 Time of Encounter: 12:40 Procedures: Anesthesia - Arterial Line Consent obtained: verbal consent Time out performed: Yes Sedation: Versed (mg): 3 Sedation: Fentanyl (mcg): 100 Supplemental Oxygen via Nasal Cannula (L/min): 5 Size (Gauge): 20 Length (inches): 1 3/4 Technique Used: sterile prep, guide wire technique, direct puncture technique Post-Procedure: line taped into place, dry sterile dressing placed Patient tolerated procedure: well, no complications Complications: none Site: Brachial R (attempt in radial without success, placed in brachial. Placed emergently by Rivas Licona CRNA)
--- NOTE | 2017-08-05 13:42 | Emergency Department Note ---
Disposition Clinical Impression: Pericardial effusion, Atrial fibrillation with RVR, SOB (shortness of breath) Leukocytosis Qualifiers: Leukocytosis type: unspecified Qualified Code(s): D72.829 - Elevated white blood cell count, unspecified Disposition: Admitted As Inpatient Condition: Critical General Adult HPI - General Chief complaint: ED Arrhythmia/Palpitations Stated complaint: palpitations Time Seen by Provider: 08/05/17 10:52 Source: patient Limitations: no limitations Nursing Notes Reviewed: Yes Vital Signs Reviewed: Yes - History of Present Illness HPI Narrative: 32-year-old male with no past medical history presents to the emergency department after 3 days of worsening shortness of breath. Patient was seen in urgent care where they found that he was in atrial fibrillation with RVR with a rate of 200. They administered adenosine 6 mg, and then 12 mg, patient was refractory to it. Patient was sent here to the emergency department. Patient is complaining of shortness of breath, chest tightness. Patient states that he has had a fever the past week, and some cough. Patient recently had a cholecystectomy performed on July 20. Patient denies any unilateral leg swelling, hemoptysis, history of DVTs. Patient denies any history of arrhythmias in the past. Pain Scale: 9 - Related Data Home Medications Medication Instructions Recorded Confirmed No Known Home Drugs 08/05/17 08/05/17 Allergies Allergy/AdvReac Type Severity Reaction Status Date / Time Penicillins Allergy Anaphylaxis Verified 07/21/17 00:22 All systems ED: reviewed and negative except as stated. Review of Systems: As Per HPI Constitutional: Reports: fever Cardiovascular: Reports: chest pain, palpitations. Denies: syncope Respiratory: Reports: cough, dyspnea. Denies: hemoptysis, sputum production Gastrointestinal: Denies: abdominal pain, nausea, vomiting Musculoskeletal: Reports: back pain Past Medical History - Past Medical History Medical history: Reports: no medical history Surgical history: Reports: no surgical history Psychiatric history: Reports: no psych history - Social History Smoking Status: Current every day smoker Smokeless Tobacco Status: Yes Alcohol use: Reports: occasionally Drug use: Reports: none Physical Exam General: 32-year-old male who appears to be significantly short of breath, in severe distress Head: autraumatic, EOMI, no conjuncitval pallor, no scleral icterus, Mouth: oral mucous membranes moist Neck: neck soft, trachea midline Chest:: Equal chest wall rise Lungs: Normal lungs sounds bilaterally, no wheezes, no respiratory distress Heart: Irregular rate, tachycardic, irregular rhythm. Abdomen: soft, non-tender, no rigidity, no guarding, no rebdound tenderness Lower Extremities: no pedal edema, calves non-tender Integumentary: Flushed, diaphoretic Neuro: Alert and oriented to person, place, time. Psych: normal affect, normal mood - General Limitations: no limitations General appearance: alert, in no apparent distress Course Vital Signs Temperature 98.2 F 08/05/17 10:52 Pulse Rate 206 08/05/17 10:52 Respiratory Rate 18 08/05/17 10:52 Blood Pressure 100/87 08/05/17 10:52 O2 Sat by Pulse Oximetry 97 08/05/17 10:52 Temperature 98.2 F 08/05/17 10:52 Pulse Rate 96 08/05/17 17:00 Respiratory Rate 22 08/05/17 17:00 Blood Pressure 108/70 08/05/17 17:00 O2 Sat by Pulse Oximetry 92 08/05/17 17:00 Oxygen Delivery Oxygen Delivery Nasal Cannula Medical Decision Making - [facility] Narrative Medical decision making narrative: 32-year-old male presents to the emergency department with shortness of breath, chest tightness radiating to his back in atrial fibrillation with rapid ventricular response with a rate of 200 bpm. Patient's blood pressure was stable at 115/80 with minor variation throughout the entire visit. We gave the patient 6 mg IV adenosine push, and patient did not respond. We proceeded to push 15 mg IV diltiazem and this lowered the heart rate some into the 160s. We did a repeat bolus of 10 mg IV Cardizem and heart rate remained the same. We are administering IV normal saline as well as 1000 mg of calcium gluconate as a blood pressure of this patient was tenuous. Bedside ultrasound performed by Dr. Tovar revealed a significant pericardial effusion. At that time, the hide curer and associate professor of english were consulted on the case. They came down to the emergency department at bedside. Recommendations were to initiate amiodarone over 30 minutes, however, patient started having worsening chest tightness and shortness of breath. The risks of possible clot spreading peripherally was discussed with patient at bedside versus benefits of performing the emergent cardioversion. He agreed to be cardioverted. Patient was sedated with fentanyl and Versed. Patient was synchronized cardioverted at 200 J biphasic. The patient's heart rate lowered to the 100s, and then went back up into the 200s again. Patient was cardioverted a second time. Patient was again unresponsive to it. Patient is developing increasing shortness of breath. Stat echo performed shows significant pericardial effusion as well as right ventricular compression with concern for tamponade not. Cardiothoracic surgeon Dr. Calderon was consulted and agreed to have patient sent to the operating room for an emergent pericardial window. The operating room was called and patient was sent up. Basic labs reveal a leukocytosis of 23.1. Blood cultures were obtained on this patient and patient was administered broad- spectrum antibiotics. Vancomycin and aztreonam were administered as this patient has a penicillin allergy. I discussed the plan with the patient's father who was understandably upset about the event. He understood the concern for this patient. Also consulted his surgeon Dr. Perales who recently operated on his gallbladder 2 weeks ago. Patient was critical and in severe distress at time of transfer to the operating room. Echocardiogram Limited Views 08/05/17 11:30 Impressions: LVEF >70%. Normal LV chamber size, wall thickness and function. Large circumferential pericardial effusion present. There is echocardiographic evidence of tamponade. There is compression of the right ventricle. The IVC is not dilated. < 50% respiratory change. ER notified. Dr. Park already aware and plan of action already established. Left Ventricular Wall Motion: Rest Echo Findings All wall segments showed normal motion. Findings: Study Quality * Technically adequate exam. ECG Findings * Atrial fibrillation, RVR. Left Ventricle * LVEF >70%. * Normal LV chamber size, wall thickness and function. Right Ventricle * Normal right ventricular size with evidence of compression from pericardial effusion. Left Atrium * Normal left atrial size. Right Atrium * Right atrium is not well visualized. Pericardium * Large circumferential pericardial effusion present. * There is echocardiographic evidence of tamponade. There is compression ofthe right ventricle. IVC * The IVC is not dilated. * < 50% respiratory change. - Medical Records Medical records reviewed: Yes I reviewed the patient's medical records. - Lab Data Lab results reviewed: Yes I reviewed the patient's lab results. Result diagrams: 08/05/17 15:26 08/05/17 15:26 Lab Results 08/05/17 08/05/17 08/05/17 Range/Units 11:36 11:36 11:36 WBC 23.1 H (4.3-11.1) K/mcL RBC 3.51 L (4.19-5.50) M/mcL Hgb 10.6 L (12.9-16.9) g/dL Hct 32.1 L (37.5-50.1) % MCV 91.5 (83.0-100.0) fL MCH 30.2 (28.0-33.3) pg MCHC 33.0 (31.6-35.5) g/dL RDW 13.3 (11.5-14.5) % Plt Count 590 H (140-400) K/mcL MPV 9.3 L (9.4-12.4) fL Immature Gran % 1.1 (0-4) % Seg Neutrophils % 78.8 % Lymphocytes % 5.7 % Monocytes % 14.3 % Eosinophils % 0.0 % Basophils % 0.1 % Neutrophils # 18.2 H (1.6-8.9) K/mcL Lymphocytes # 1.3 (0.6-4.6) K/mcL Monocytes # 3.3 H (0.0-1.3) K/mcL Eosinophils # 0.0 (0.0-0.6) K/mcL Basophils # 0.0 (0.0-0.2) K/mcL PT 16.9 H (9.4-12.1) Seconds INR 1.6 APTT 32.3 (26.0-36.0) Seconds Sodium 135 L (136-145) mEq/L Potassium 4.2 (3.5-4.5) mEq/L Chloride 104 (98-109) mEq/L Carbon Dioxide 23 (19-29) mEq/L BUN 12 (8-26) mg/dL Creatinine 0.79 (0.72-1.25) mg/dL Est GFR ( Amer) > 60 (> 60) Est GFR (Non-Af Amer) > 60 (> 60) BUN/Creatinine Ratio 15 (6-26) Glucose 123 H (70-99) mg/dL Calculated Osmolality 281 (280-300) Calcium 8.5 L (8.6-10.8) mg/dL Troponin I (0-0.03) ng/mL TSH 0.657 (0.350-4.840) mcIU/mL 08/05/17 Range/Units 11:36 WBC (4.3-11.1) K/mcL RBC (4.19-5.50) M/mcL Hgb (12.9-16.9) g/dL Hct (37.5-50.1) % MCV (83.0-100.0) fL MCH (28.0-33.3) pg MCHC (31.6-35.5) g/dL RDW (11.5-14.5) % Plt Count (140-400) K/mcL MPV (9.4-12.4) fL Immature Gran % (0-4) % Seg Neutrophils % % Lymphocytes % % Monocytes % % Eosinophils % % Basophils % % Neutrophils # (1.6-8.9) K/mcL Lymphocytes # (0.6-4.6) K/mcL Monocytes # (0.0-1.3) K/mcL Eosinophils # (0.0-0.6) K/mcL Basophils # (0.0-0.2) K/mcL PT (9.4-12.1) Seconds INR APTT (26.0-36.0) Seconds Sodium (136-145) mEq/L Potassium (3.5-4.5) mEq/L Chloride (98-109) mEq/L Carbon Dioxide (19-29) mEq/L BUN (8-26) mg/dL Creatinine (0.72-1.25) mg/dL Est GFR ( Amer) (> 60) Est GFR (Non-Af Amer) (> 60) BUN/Creatinine Ratio (6-26) Glucose (70-99) mg/dL Calculated Osmolality (280-300) Calcium (8.6-10.8) mg/dL Troponin I 0.00 (0-0.03) ng/mL TSH (0.350-4.840) mcIU/mL - Radiology Data Radiology results reviewed: Yes I reviewed the patient's radiology results. - EKG Data EKG #1 EKG attestation: Yes I reviewed and interpreted this EKG. EKG results narrative: EKG #1 10:55 Amrit a rate to 160s per minute, QRS duration 86% segs, QT 250 ms, QTC 360 ms , normal axis. Atrial fibrillation with rapid ventricular response. Rate is 206 bpm. There is no previous EKG to compare this study to. Attestation Statement - Attestation Attestation: I, Trino Fraire, examined this patient and my medical decision-making was reviewed with the PURSE MAKER/PA/Advanced Practice Nurse/Resident Physician. I agree with the documented findings, disposition and treatment plan as described except to the extent set forth below. 32-year-old male presents to emergency Department with concerns of palpitations. Patient states symptoms have been present over the past 3 days however his heart rate became much faster today and he developed mild chest tightness. Patient also states that he had a history of fever over the past 4 days. He has a history of cholecystectomy [address] Perales. He denies abdominal pain or difficulty with by mouth intake or with his bowel movements. Patient was initially seen at an urgent care and received treatments of adenosine 6 mg and then 12 mg without improvement of symptoms. After initial evaluation emergency Department his heart rate was greater than 200 and was difficult to ascertain on EKG whether it was atrial fibrillation versus an AV enma reentrant tachycardia. The EKG showed a narrow complex tachycardia, we used adenosine diagnostically and were able to see in atrial fibrillation type rhythm on monitor and EKG. Patient was then given diltiazem 15 mg for treatment of A. fib with RVR this improved the patient's heart rate down to 160 and patient felt mildly improved however heart rate koko again prior to administration of the diltiazem drip. He was given another 10 mg which again improved his heart rate down to 160 with similar results. Cardiology, Dr. Ibarra and Dr. Celis was consult who recommended amiodarone bolus 150 mg over 20 minutes. Amiodarone bolus was started, patient then developed increased chest pain and diaphoresis at this point I felt the patient was becoming unstable and he was cardioverted. Patient then changed to a sinus rhythm which only lasted a few seconds before returning again to A. fib with RVR. Bedside ultrasound performed by resident with my supervision and showed a large pericardial effusion. Cardiology was consult regarding patient's pericardial effusion, they evaluated the patient at the bedside and felt he needed urgent pericardiocentesis versus CT surgery for a pericardial window. Patient was then taken to surgery by Dr. Ibarra.
[2017-08-05] MEDS ORDERED: Ondansetron 4 MG/2 ML VIAL ONE (14:03)
[2017-08-05] MEDS ORDERED: Dexamethasone 4 MG/ML VIAL ONE (14:03)
[2017-08-05] MEDS ORDERED: Potassium Chloride 40 MEQ/200 ML BAG IVPB PRN (14:56)
[2017-08-05] MEDS ORDERED: Insulin Regular, Human 100 UNIT/ML IV PRN (14:56)
[2017-08-05] MEDS ORDERED: Acetaminophen 650 MG RECTAL SUPP RC PRN (14:56)
[2017-08-05] MEDS ORDERED: *HR* Morphine 2 MG/ML SYRINGE IVP PRN ×2 (14:56)
[2017-08-05] MEDS ORDERED: Amiodarone Premix 360 MG/200 ML BAG IVC ONE (14:56)
[2017-08-05] MEDS ORDERED: Naloxone 0.4 MG/ML INJ IVP PRN (14:56)
[2017-08-05] MEDS ORDERED: Ondansetron 4 MG/2 ML VIAL IVP PRN (14:56)
[2017-08-05] MEDS ORDERED: *HR* Dextrose 50 % in Water (Syg) 50 ML SYRINGE IVP PRN (14:56)
[2017-08-05] MEDS ORDERED: Acetaminophen 325 MG TABLET PO PRN (14:56)
--- NOTE | 2017-08-05 14:58 | Cardiology Consult Note ---
<ArashCampbell stone Shirley - Last Filed: 08/05/17 15:42> Date of Encounter: 08/05/17 Time of Encounter: 14:56 Assessment and Plan (1) Pericardial effusion with cardiac tamponade Current Visit: Yes Status: Acute Limited echo LVEF >70%. Large circumferential pericardial effusion present. There is echocardiographic evidence of tamponade. There is compression of the right ventricle. The IVC is not dilated. < 50% respiratory change. Pt was becoming unstable-hypotensive, A-Fib RVR, diaphoretic. Taken for pericardiocentesis--unsuccessful. Taken for pericardial window by CT surgery-- 1.5L drained. CT surgery following for further management. (2) Atrial fibrillation with RVR Current Visit: Yes Status: Acute A-Fib RVR HR 200s in setting of pericardial effusion with tamponade. Cardioversion attempted at bedside due to pt being unstable--200J and 250J, unsuccessful. Loaded with IV amiodarone. Bedside echo revealed large pericardial effusion with evidence of tamponade. S/P pericardial window and pt is now SR. Will stop heparin and amio since pt is now in SR and it was likely driven by the pericardial effusion. Discussion w patient/family: The assessment and plan as outlined above was discussed with the patient and/or family members who expressed understanding and agreement. All questions were answered. Thank you for involving us in the care of your patient. Please call with any questions. I will discuss all the above with Dr. Jacobson and make changes as necessary. History of Present Illness Consult date: 08/05/17 Requesting physician: Grant Lakhani Consult reason: A-Fib RVR Chief complaint: Dyspnea, chest pain History of present illness: Mr. Quinonez is a 32 year old male with no reported PMH aside from tobacco abuse and recent cholecystectomy 07/20/17. He initially presented to urgent care for complaints of fever, worsening dyspnea and midsternal chest pressure that has been constant for the past 3 days. At urgent care, found to be in A- Fib RVR HR 206, given Adenosine 6mg and 12mg, was refractory and sent to ED for further management. Pt became unstable, was hypotensive, diaphoretic with labored breathing. Bedside cardioversion was attempted x 2 at 200 and 250J. Both times unsuccessful despite loading with IV Amiodarone--would convert to SR briefly then go back in to A-Fib RVR. Bedside echo revealed a large pericardial effusion with evidence of tamponade. Initially he was taken for pericardiocentesis, unsuccessful attempt then taken by CT surgery for pericardial window--successful with 1.5L removed, now back in SR. Past Med Surg Social Fam HX - Past Medical History Medical history: no medical history Psychiatric history: no psych history - Past Surgical History Surgical History: no surgical history - Social History Smoking Status: Current every day smoker Smokeless Tobacco Status: Yes Alcohol use: occasionally Drug use: none Medications and Allergies No Known Home Drugs 08/05/17 [History] 3 Allergy/AdvReac Type Severity Reaction Status Date / Time Penicillins Allergy Anaphylaxis Verified 07/21/17 00:22 All Systems Review: A 10-system review of systems was performed and is negative for pertinent findings except as documented above in the HPI. - Cardiovascular Cardiovascular: as per HPI, chest pain at rest, chest pain with exertion, diaphoresis, dyspnea at rest, dyspnea on exertion - Respiratory Respiratory: cough, dyspnea Physical Examination Vital Signs, Last 4 Hours Resp BP 08/05/17 13:39 24 111/88 Vital Signs Temp Pulse Resp BP Pulse Ox 08/05/17 13:39 24 111/88 08/05/17 11:28 179 22 109/87 93 08/05/17 10:52 98.2 F 206 18 100/87 97 Intake and Output 08/04/17 08/05/17 08/05/17 23:59 07:59 15:59 Intake Total 110 / 110 Output Total 400 / 400 Balance -290 / -290 Intake: IV Fluids 110 / 110 Calcium Gluconate 1,000 MG In 110 / 110 Dextrose 5% 100 ML @ 220 mls/hr IVPB ONCE ONE Rx#:[id number] Output: Estimated Blood Loss 400 / 400 Other: Weight 131.542 kg Patient Weight 08/05/17 23:59 Weight 131.542 kg General: Other (labored breathing, diaphoretic, appears to be in distress) HEENT: Atraumatic, Normocephaly, Mucus Membranes Moist Neck: Normal carotid pulses Cardiac: Other (irregularly irregular) Lungs: Other (labored, diminished) Neuro: Alert and responsive Abdomen: Soft, Non-Tender Skin: No rashes noted on visualized skin Musculoskeletal: No Chest Wall Tenderness Extremities: No Clubbing, No Cyanosis, No Edema, Normal Pulses Results 08/05/17 11:36 08/05/17 11:36 Short CBC 08/05/17 Range/Units 11:36 WBC 23.1 H (4.3-11.1) K/mcL Hgb 10.6 L (12.9-16.9) g/dL Hct 32.1 L (37.5-50.1) % Plt Count 590 H (140-400) K/mcL Neutrophils # 18.2 H (1.6-8.9) K/mcL BMP 08/05/17 Range/Units 11:36 Sodium 135 L (136-145) mEq/L Potassium 4.2 (3.5-4.5) mEq/L Chloride 104 (98-109) mEq/L Carbon Dioxide 23 (19-29) mEq/L BUN 12 (8-26) mg/dL Creatinine 0.79 (0.72-1.25) mg/dL Glucose 123 H (70-99) mg/dL Calcium 8.5 L (8.6-10.8) mg/dL Cardiac Enzymes 08/05/17 Range/Units 11:36 Troponin I 0.00 (0-0.03) ng/mL Impressions Echocardiogram Limited Views 08/05/17 11:30 Impressions: LVEF >70%. Normal LV chamber size, wall thickness and function. Large circumferential pericardial effusion present. There is echocardiographic evidence of tamponade. There is compression of the right ventricle. The IVC is not dilated. < 50% respiratory change. ER notified. Dr. Park already aware and plan of action already established. Left Ventricular Wall Motion: Rest Echo Findings All wall segments showed normal motion. Findings: Study Quality * Technically adequate exam. ECG Findings * Atrial fibrillation, RVR. Left Ventricle * LVEF >70%. * Normal LV chamber size, wall thickness and function. Right Ventricle * Normal right ventricular size with evidence of compression from pericardial effusion. Left Atrium * Normal left atrial size. Right Atrium * Right atrium is not well visualized. Pericardium * Large circumferential pericardial effusion present. * There is echocardiographic evidence of tamponade. There is compression ofthe right ventricle. IVC * The IVC is not dilated. * < 50% respiratory change. Chest X-Ray 08/05/17 14:27 IMPRESSION: Endotracheal tube appears in satisfactory position. Sternotomy wires noted. D/ / Lan Baker MD / Lan Baker MD Interpreting Provider: Lan Baker MD Active Medications Heparin Sodium (Porcine) (Heparin) 9,000 unit IVP Q6HR PRN PRN Reason: SEE COMMENTS Stop: 02/04/18 11:37 Heparin Sodium (Porcine) (Heparin) 4,500 unit IVP Q6H PRN PRN Reason: SEE COMMENTS Stop: 02/04/18 11:37 Heparin Sodium/Dextrose (Heparin 25,000 Unit/500 Ml D5w) 25,000 unit in 500 mls @ 36.832 mls/hr IVC .[id number] EDGAR; 14 UNIT/KG/HR PRN Reason: Protocol Stop: 02/04/18 11:46 Last Admin: 08/05/17 12:05 Dose: 14 unit/kg/hr, 36.832 mls/hr Aztreonam 2,000 mg/ Sterile (Water) 20 mls @ 300 mls/hr IVP Q8H EDGAR Stop: 02/04/18 12:31 Vancomycin HCl 2,000 mg/ (Dextrose) 500 mls @ 250 mls/hr IVPB Q12H [facility] Stop: 08/06/17 04:59 Vancomycin HCl 1,500 mg/ (Dextrose) 250 mls @ 166.67 mls/hr IVPB Q12H [facility] Stop: 02/05/18 15:01 - Imaging and Cardiology Echo: report reviewed - EKG Interpretation EKG results cardiology: personally reviewed Consult Discharge Plan - Plan Referrals: NONE,PCP [Primary Care Provider] - <Michelle Jacobson - Last Filed: 08/05/17 17:04> Date of Encounter: 08/05/17 - Attending Attestation I have personally performed a face to face evaluation on this patient. I have reviewed and agree with the care plan with LAW ENFORCEMENT INSTRUCTOR: Called to the ER urgently for AF RVR and concern for hemodynamic compromise. Upon arrival, ER team was preparing sedation for DCCV. He received 200J of synchronized cardioversion which converted to normal sinus rhythm lasting a few seconds then converting quickly back into atrial fibrillation with RVR. This was attempted a second time at 250 J of synchronized cardioversion again converting him to normal sinus rhythm lasting only a few seconds and quickly converting back into atrial fibrillation with RVR. The ER team performed a quick bedside echo which was concerning for tamponade physiology demonstrating a large pericardial effusion. Our air conditioning service technician presented stat to the bedside and obtained images which did demonstrate a large circumferential pericardial effusion measuring 3.1 cm in largest diameter associated with compromised filling of the RV and dilated IVC. Collectively, findings on echo and clinical presentation were consistent with tamponade physiology. CTS was called. Patient initially taken to the slab puller for pericardiocentesis but was unsuccessful. He was subsequently taken to surgery by CTS for pericardial window. They successfully drained a large amount of fluid. Patient now back in NSR. Await fluid analysis. Repeat echo. Assessment and Plan Discussion w patient/family: The assessment and plan as outlined above was discussed with the patient and/or family members who expressed understanding and agreement. All questions were answered. Thank you for involving us in the care of your patient. Please call with any questions. History of Present Illness History of present illness: Mr. Quinonez is a 32 year old male All Systems Review: A 10-system review of systems was performed and is negative for pertinent findings except as documented above in the HPI. Physical Examination Vital Signs, Last 4 Hours Pulse Resp BP Pulse Ox 08/05/17 16:00 100 22 123/78 92 08/05/17 15:37 22 142/86 97 08/05/17 15:13 107 22 148/87 98 08/05/17 14:58 109 08/05/17 14:35 18 97 08/05/17 13:39 24 111/88 Results 08/05/17 15:26 08/05/17 15:26 Lab Results 08/05/17 08/05/17 08/05/17 15:26 15:26 15:26 WBC 30.8 H* Hgb 10.0 L Hct 30.5 L Plt Count 590 H INR 1.6 APTT 31.0 Sodium Potassium Chloride Carbon Dioxide BUN Creatinine Glucose 143 H Calcium Magnesium 08/05/17 15:26 WBC Hgb Hct Plt Count INR APTT Sodium 136 Potassium 4.6 H Chloride 106 Carbon Dioxide 23 BUN 10 Creatinine 0.69 L Glucose 140 H Calcium 7.5 L Magnesium 1.5 L
[2017-08-05] MEDS ORDERED: Norepinephrine 4 MG in D5% in Water 250 ML IVC SCH (15:00)
[2017-08-05] MEDS ORDERED: Amiodarone Premix 360 MG/200 ML BAG IVC SCH (15:00)
[2017-08-05] MEDS ORDERED: Vancomycin 2,000 MG in D5% in Water 500 ML IVPB SCH (15:00)
[2017-08-05] MEDS ORDERED: 0.9 % Sodium Chloride w KCl 20 MEQ/1,000 ML MLS IVC SCH (15:00)
--- NOTE | 2017-08-05 15:30 | Operative Note ---
Date of procedure: 08/05/17 Pre-op diagnosis: Pericardial effusion with tamponade physiology. Post-op diagnosis: same Procedure: 1. Median sternotomy. 2. Anterior pericardial resection. Implants: None. Complications: None. Anesthesia: LEONELA Surgeon: Grayson Calderon Estimated blood loss (cc): 400 Specimen: 1. Anterior pericardium 2. Pericardial effusion. Condition: stable Disposition: ICU Procedure in Detail: INDICATIONS FOR OPERATION: The patient is a 32-year-old otherwise healthy man who underwent a laparoscopic cholecystectomy on July 20, 2017. He began experiencing shortness of breath, dyspnea on exertion, chills, fever, and midsternal chest pain 3 days ago. The symptoms became more severe this morning and he was evaluated at an urgent care facility. At that time he was found to have atrial fibrillation with a rapid ventricular response (heart rate approximately 200 bpm) and was given adenosine 2 with about conversion to normal sinus rhythm. He was transferred to [facility] emergency department for further treatment. Upon arrival at the emergency department the patient was noted to have atrial fibrillation with rapid ventricular response and underwent unsuccessful cardioversion 2. The patient also became hypotensive at this time and a bedside transthoracic echocardiogram revealed a large pericardial effusion with right ventricular collapse. The patient was recommended for emergent subxiphoid pericardial window. Prior to being transferred to the operating room, the patient was taken to the cardiac catheterization lab for a temporizing percutaneous pericardiocentesis. This was unsuccessful and he was taken emergently to the operating room. FINDINGS AT OPERATION: The patient had a thickened pericardium measuring 4-5 mm. He had approximately 1400 mL of serosanguineous fluid within the pericardial space. The patient had fibrinous exudate on the epicardium and adhesions between the epicardium and the pericardial sac. The pericardial fluid was sent for CBC, chemistry, culture , and cytology. DESCRIPTION OF OPERATION: Informed operative consent could not be obtained from the patient due to his hemodynamic instability. He was taken emergently to the operating room from the cardiac catheterization laboratory. A satisfactory general tracheal anesthetic was induced and appropriate monitoring lines were placed. The patient's chest and upper abdomen were prepped and draped in a sterile fashion. Given the patient's hemodynamic instability as well as the need for possible cardioversion it was decided to perform a median sternotomy resume attempting a subxiphoid pericardial window. The incision was then made through the skin and subcutaneous tissue and the sternum was divided rapidly. The sternum was and the pericardium opened. Approximately 1400 mL of serosanguineous fluid was withdrawn from the pericardium. A portion of this fluid was sent for CBC, chemistry (including glucose, LDH, and total protein), culture (including aerobic, anaerobic, fungal, and TB), and cytology. A large portion of anterior pericardium was resected and sent for permanent section. The inferior wall of the heart was examined to be certain that there was no bleeding from the attempted percutaneous or cardiocentesis. None was noted. Several adhesions were taken down between the epicardium and the pericardium to facilitate complete drainage of the pericardial effusion. Two 32 Telugu chest tubes were placed, one in the anterior mediastinum and one along the diaphragm. The sternum was reapproximated using sternal double wires. The skin pectoralis major fascia, rectus abdominis fascia, subcutaneous tissue, and skin edges were reapproximated using running Vicryl sutures. A negative pressure sterile dressing was applied to the sternotomy incision. The patient was transferred to the ICU in satisfactory postoperative condition. There were no intraoperative complications and the needle and sponge count were correct at operation. A chest x-ray revealed no retained instruments (performed due to the emergent nature of the case and no instrument count being performed preoperatively).
--- NOTE | 2017-08-05 15:42 | Pulmonology History & Physical ---
<Haris Ibrahim Juana - Last Filed: 08/05/17 16:44> Date of Encounter: 08/05/17 Time of Encounter: 15:41 Assessment and Plan (1) Acute respiratory failure with hypoxia Current visit: Yes Status: Acute Patient remains intubated postprocedure. He is having some hypoxemia despite high PEEP and FiO2. Will increase sedation for better ventilator synchronization. Lung recruitment maneuvers. Reassess ABG in the morning. (2) Pericardial effusion with cardiac tamponade Current visit: Yes Status: Acute Patient presented with acute onset chest pain and shortness of breath that had been present for 3 days and gradually worsening. Patient was found to have a large pericardial effusion with cardiac tamponade. He was taken emergently to the OR for pericardial window and drainage of the fluid. This point the cause is unclear. Fluid has been sent to the lab for cell count, culture, chemistry testing, cytology, flow cytometry. Given the recent cholecystectomy (3) Atrial fibrillation with RVR Current visit: Yes Status: Acute Patient presented with A. fib with RVR. Secondary to tamponade as discussed above. postoperatively this has resolved currently in normal sinus rhythm. Patient was initiated on amiodarone and heparin but this has been discontinued and cardiology recommendations. If any monitor and storage bin tender. (4) Leukocytosis Current visit: Yes Status: Acute Unclear if this is a stress reaction given his critical illness as discussed above. Blood cultures are been drawn, will send urine culture. Broad-spectrum antibiotics with vancomycin, aztreonam, clindamycin and been initiated. Continue to follow leukocytosis and culture results.. Qualifiers: Leukocytosis type: unspecified Qualified Code(s): D72.829 - Elevated white blood cell count, unspecified (5) History of cholecystectomy Current visit: Yes Status: Acute Unclear if his current presentation of tamponade as related to his recent cholecystectomy. We will obtain CT of the abdomen and pelvis to rule out any intra-abdominal process that may be contributing. Broad-spectrum antibiotics as above. History of Present Illness Chief complaint: Chest pain/shortness of breath HPI: Mr. Quinonez is a 32 year old male with history of cholecystectomy 2 weeks ago who presented with chest pain and shortness of breath. At the time my exam the patient is intubated and sedated so the history is obtained from records review. Apparently the patient had not been feeling well for 3 days and went to an urgent care where he was found to be in atrial fibrillation with rapid ventricular response with a rate in the 200s. Patient was given 2 doses of adenosine at this time which were unsuccessful at breaking his abnormal cardiac rhythm. Patient was then transported to the [facility] emergency department where he was again found to be in atrial fibrillation with rapid ventricular response with a rate in the 200s. Cardioversion was attempted twice in unsuccessful, the patient was also initiated on amiodarone. An urgent bedside echo was performed that revealed a large pericardial effusion with tamponade physiology. The patient was taken emergently to the catheter lab for pericardiocentesis which was ultimately unsuccessful. Patient was then taken emergently to the operating room where sternotomy and her cardio window were performed and approximately 1.4 L of seizures and was fluid was evacuated. Patient was then transferred to the intensive care unit. At this time he remains intubated and on mechanical ventilation and sedated. He does not appear to be in any acute distress. Past Med Surg Social Fam HX - Past Medical History Medical history: no medical history Psychiatric history: no psych history - Past Surgical History Surgical History: no surgical history - Social History Smoking Status: Current every day smoker Smokeless Tobacco Status: Yes Alcohol use: occasionally Drug use: none Medications and Allergies No Known Home Drugs 08/05/17 [History] 3 Allergy/AdvReac Type Severity Reaction Status Date / Time Penicillins Allergy Anaphylaxis Verified 07/21/17 00:22 ROS unobtainable: due to endotracheal tube All Systems: A 10-system review of systems was performed and is negative for pertinent findings except as documented above in the HPI. Physical Examination Vital Signs: Vital Signs, Last 4 Hours Pulse Resp BP Pulse Ox 08/05/17 15:37 22 142/86 97 08/05/17 15:13 107 22 148/87 98 08/05/17 14:58 109 08/05/17 14:35 18 97 08/05/17 13:39 24 111/88 General appearance: comatose ENT: oropharynx moist Effort: normal Auscultation: bilateral: diminished breath sounds Cardiovascular: regular rate and rhythm (Right right at 100), other (2 chest tubes are present.) Gastrointestinal: normoactive bowel sounds, soft, non-tender, non-distended, other (Laparoscopy scars are present) Extremities: no cyanosis, no edema, pink and warm normal mental status, non-focal exam Results - Laboratory Findings CBC and BMP: 08/05/17 15:26 08/05/17 15:26 PT/INR, D-dimer PT 16.9 Seconds (9.4-12.1) H 08/05/17 11:36 Abnormal lab findings: Abnormal lab results WBC 23.1 K/mcL (4.3-11.1) H 08/05/17 11:36 RBC 3.51 M/mcL (4.19-5.50) L 08/05/17 11:36 Hgb 10.6 g/dL (12.9-16.9) L 08/05/17 11:36 Hct 32.1 % (37.5-50.1) L 08/05/17 11:36 Plt Count 590 K/mcL (140-400) H 08/05/17 11:36 MPV 9.3 fL (9.4-12.4) L 08/05/17 11:36 Neutrophils # 18.2 K/mcL (1.6-8.9) H 08/05/17 11:36 Monocytes # 3.3 K/mcL (0.0-1.3) H 08/05/17 11:36 PT 16.9 Seconds (9.4-12.1) H 08/05/17 11:36 Sodium 135 mEq/L (136-145) L 08/05/17 11:36 Glucose 123 mg/dL (70-99) H 08/05/17 11:36 POC Glucose 139 (58-89) H 08/05/17 14:37 Calcium 8.5 mg/dL (8.6-10.8) L 08/05/17 11:36 <Grant Lakhani W - Last Filed: 08/05/17 17:15> Date of Encounter: 08/05/17 History of Present Illness HPI: Mr. Quinonez is a 32 year old male All Systems: A 10-system review of systems was performed and is negative for pertinent findings except as documented above in the HPI. Physical Examination Vital Signs: Vital Signs, Last 4 Hours Pulse Resp BP Pulse Ox 08/05/17 15:37 22 142/86 97 08/05/17 15:13 107 22 148/87 98 08/05/17 14:58 109 08/05/17 14:35 18 97 08/05/17 13:39 24 111/88 Results - Laboratory Findings CBC and BMP: 08/05/17 15:26 08/05/17 15:26 ABG ABG pH 7.27 pH Units (7.32-7.45) L 08/05/17 15:27 ABG pCO2 56 mmHg (35-45) H 08/05/17 15:27 ABG pO2 105 mmHg (85-104) H 08/05/17 15:27 ABG O2 Saturation 97 % (95-98) 08/05/17 15:27 PT/INR, D-dimer PT 16.9 Seconds (9.4-12.1) H 08/05/17 11:36 Abnormal lab findings: Abnormal lab results WBC 23.1 K/mcL (4.3-11.1) H 08/05/17 11:36 RBC 3.51 M/mcL (4.19-5.50) L 08/05/17 11:36 Hgb 10.6 g/dL (12.9-16.9) L 08/05/17 11:36 Hct 32.1 % (37.5-50.1) L 08/05/17 11:36 Plt Count 590 K/mcL (140-400) H 08/05/17 11:36 MPV 9.3 fL (9.4-12.4) L 08/05/17 11:36 Neutrophils # 18.2 K/mcL (1.6-8.9) H 08/05/17 11:36 Monocytes # 3.3 K/mcL (0.0-1.3) H 08/05/17 11:36 PT 16.9 Seconds (9.4-12.1) H 08/05/17 11:36 ABG pH 7.27 pH Units (7.32-7.45) L 08/05/17 15:27 ABG pCO2 56 mmHg (35-45) H 08/05/17 15:27 ABG pO2 105 mmHg (85-104) H 08/05/17 15:27 ABG Total CO2 27 mEq/L (20-26) H 08/05/17 15:27 Sodium 135 mEq/L (136-145) L 08/05/17 11:36 Glucose 123 mg/dL (70-99) H 08/05/17 11:36 POC Glucose 139 (58-89) H 08/05/17 14:37 Calcium 8.5 mg/dL (8.6-10.8) L 08/05/17 11:36 - Attending Attestation I examined this patient and my medical decision-making was reviewed with the Resident Physician. I agree with the documented findings, disposition and treatment plan as described except to the extent set forth below. We independently had [id number] contact with the patient Patient seen and examined at bedside Labs, radiology, chart personally reviewed. VIRTUAL CUSTOMER ASSISTANT: Patient currently intubated and sedated status post general anesthesia on for spontaneous awake trial later today Pulm: Acute hypoxic hypercarbic respiratory respiratory failure intubated sedated on vent continue low tidal by ventilatory strategy requiring high amounts of FiO2 we will increase PEEP to this repeat ABG suspect significant degree of atelectasis and possible pneumonia CT of the chest pending. Cards: Acute atrial fibrillation with rapid ventricular response secondary to pericardial tamponade status post pericardial window with chest tube placement appreciate CTS evaluation cardiology also felt following the patient is currently in sinus rhythm we will continue to monitor this I suspect this is from an infectious cause possibly related to recent operation FEN-GI: Nothing by mouth for now PPI prophylaxis given Renal: No evidence of a cat continue to monitor urine output and electrolytes daily ID: Severe sepsis with evidence of pericarditis recent instrumentation for cholecystectomy CT chest abdomen to evaluate for 97 infection or persistent phlegmon. He is on broad-spectrum antimicrobials with planned to de-escalate his received adequate volume resuscitation Heme/Onc: DVT Prophylaxis given Endo: Glucose Monitored Integ/MSK: Skin Care per routine ICU Nursing Protocol to prevent ulcers. Lines: All lines examined without evidence of infection : Dispo: Remain ICU for ventilator management CODE: Full
[2017-08-05 15:45] LABS: ABG Base Excess -2 mEq/L (-2 to 3); ABG HCO3 26 mEq/L (21-27); ABG Oxygen Saturation 97 % (95-98); ABG PCO2 56 mmHg (35-45); ABG PH 7.27 pH Units (7.32-7.45); ABG PO2 105 mmHg (85-104); ABG TCO2 27 mEq/L (20-26); Blood Gas Modality PRVC; Blood Gas PEEP 5 cm H2O; Blood Gas Respiration Rate 18; Blood Gas VT 500 cc
--- NOTE | 2017-08-05 15:50 | Electrocardiograph Report ---
[address] [place], [place] [address] Test Date: 2017-08-05 Pat Name: Haris Quinonez Department: 102 Room: [facility] Gender: M Core Checker: Msc : 1985 Requested By: Trino Fraire Order Number: [id number] Reading MD: Uriel Ibarra MD Measurements Intervals [place] Rate: 206 P: MA: 0 QRS: 84 QRSD: 86 T: -63 QT: 215 QTc: 316 Interpretive Statements ATRIAL FIBRILLATION WITH RAPID VENTRICULAR RESPONSE INFERIOR ISCHEMIA Electronically Signed On 08-05-2017 15:49:09 EST by Uriel Ibarra MD
--- NOTE | 2017-08-05 15:52 | Electrocardiograph Report ---
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
[2017-08-05 15:53] LABS: Basophils % 0.2 %; Immature Granulocytes % 3.9 % (0-4)
[2017-08-05 15:55] LABS: Basophils # 0.1 K/mcL (0.0-0.2); Hematocrit 30.5 % (37.5-50.1); Lymphocytes # 1.1 K/mcL (0.6-4.6); Lymphocytes % 3.6 %; Mean Corpuscular HGB Conc 32.8 g/dL (31.6-35.5); Mean Corpuscular Volume 91.6 fL (83.0-100.0); Mean Platelet Volume 9.6 fL (9.4-12.4); Monocytes # 3.3 K/mcL (0.0-1.3); Monocytes % 10.8 %; Neutrophils # 25.1 K/mcL (1.6-8.9); Platelet Count 590 K/mcL (140-400); Red Blood Count 3.33 M/mcL (4.19-5.50); Red Cell Distribution Width 13.4 % (11.5-14.5); Segmented Neutrophils % 81.5 %
[2017-08-05 15:56] LABS: INR 1.6; Prothrombin Time 17.2 Seconds (9.4-12.1)
--- NOTE | 2017-08-05 15:58 | Pre-Sedation Evaluation ---
Pre-sedation evaluation - Pre-sedation checklist Date of procedure: 08/05/17 Procedure: pericardiocentesis Recent Vitals: Last Vital Signs Temp 98.2 F 08/05/17 10:52 Pulse 107 08/05/17 15:13 Resp 22 08/05/17 15:37 BP 142/86 08/05/17 15:37 Pulse Ox 97 08/05/17 15:37 H&P (including ROS) documented in medical record: Yes Previous reaction to sedatives/anesthetics: No Dietary Status: NPO after Midnight Airway Assessment: Patient can open mouth completely, TMJ function normal Dentition: No loose teeth or bridges ASA Classification *see protocol: CLASS II-Mild systemic disease Plan of Care: Pt appropriate candidate for procedure/moderate/conscious sedation , Risks/benefits of procedure/sedation discussed w/ patient/family
[2017-08-05] MEDS ORDERED: Vancomycin 2,000 MG in D5% in Water 250 ML IVPB SCH (16:00)
[2017-08-05] MEDS: FentaNYL (PF) 1,000 MCG in 0.9 % Sodium Chloride 80 ML IVC SCH (16:06)
[2017-08-05] MEDS: Aztreonam 2,000 MG in Water for inj. (sterile) 20 ML IVP SCH ×2 (16:10→22:59)
[2017-08-05] MEDS: niCARdipine 40 MG/200 ML MLS IVC SCH ×2 (16:11→22:59)
[2017-08-05 16:16] LABS: Hypersegmented Neutrophils Present (Not Present); Toxic Granulation Present (Not Present)
[2017-08-05 16:24] LABS: BUN/Creatinine Ratio 14 (6-26); Blood Urea Nitrogen 10 mg/dL (8-26); Calcium 7.5 mg/dL (8.6-10.8); Carbon Dioxide 23 mEq/L (19-29); Chloride 106 mEq/L (98-109); Glucose 140 mg/dL (70-99); Magnesium 1.5 mg/dL (1.6-2.6); Osmolality,Calculated 283 (280-300); Potassium 4.6 mEq/L (3.5-4.5); Sodium 136 mEq/L (136-145); eGFR For African Americans > 60 (> 60); eGFR For Non-African Americans > 60 (> 60)
[2017-08-05 16:25] LABS: Glucose 143 mg/dL (70-99); HDL Cholesterol 22 mg/dL (40-59); Total Protein 5.9 g/dL (6.0-8.3)
[2017-08-05] MEDS: Clindamycin 900 MG/50 ML 900 MG/50 ML IV.SOLN IVPB SCH (16:26)
[2017-08-05] MEDS: Insulin Human Regular 100 UNIT in 0.9 % Sodium Chloride 100 ML IVC SCH (16:27)
[2017-08-05] MEDS: Pantoprazole 40 MG VIAL IVP SCH (16:27)
[2017-08-05 16:28] LABS: Glucose,Pericardial Fluid 96 mg/dL (No Ref Range)
[2017-08-05] MEDS: *HR* Heparin 5,000 UNIT/ML VIAL SQ SCH (16:29)
[2017-08-05] MEDS: Metoclopramide 10 MG/2 ML VIAL IVP SCH (16:29)
[2017-08-05] MEDS: Vancomycin 2,000 MG in D5% in Water 500 ML IVPB SCH (16:30)
[2017-08-05 16:50] LABS: Appearance of Pericardial Fl Bloody (Clear)
[2017-08-05 18:49] LABS: Bilirubin,Urine Negative (Negative); Blood,Urine Negative (Negative); Clarity,Urine Clear (Clear); Color,Urine Yellow (Yellow); Glucose,Urine (UA) Normal (Normal); Ketones,Urine Negative (Negative); Leukocyte Esterase,Urine Negative (Negative); Nitrite,Urine Negative (Negative); PH,Urine 6.5 pH Units (5.0-8.0); Protein,Urine Trace mg/dL (Neg-Trace); Specific Gravity,Urine 1.013 (1.010-1.025); Urobilinogen,Urine Normal (Normal)
[2017-08-05 18:52] LABS: Bacteria,Urine None Seen per hpf (None-Few); Hyaline Casts,Urine None Seen per lpf (None-Few); RBC,Urine 0-3 per hpf (0-3); Squamous Epithelial Cell,Urine Moderate per lpf (None-Few); WBC,Urine 0-3 per hpf (0-3)
[2017-08-05 19:53] LABS: ABG Base Excess -3 mEq/L (-2 to 3); ABG HCO3 22 mEq/L (21-27); ABG Oxygen Saturation 94 % (95-98); ABG PCO2 38 mmHg (35-45); ABG PH 7.37 pH Units (7.32-7.45); ABG PO2 74 mmHg (85-104); ABG TCO2 23 mEq/L (20-26); Blood Gas Modality PRVC; Blood Gas PEEP 10 cm H2O; Blood Gas Respiration Rate 22; Blood Gas VT 500 cc
[2017-08-05] MEDS: Chlorhexidine Rinse 15 ML MOUTHWASH MM SCH (20:00)
[2017-08-06] MEDS: Metoclopramide 10 MG/2 ML VIAL IVP SCH ×5 (00:53→22:54)
[2017-08-06] MEDS: Clindamycin 900 MG/50 ML 900 MG/50 ML IV.SOLN IVPB SCH (00:53)
[2017-08-06 04:18] LABS: ABG Base Excess 0 mEq/L (-2 to 3); ABG HCO3 25 mEq/L (21-27); ABG Oxygen Saturation 94 % (95-98); ABG PCO2 41 mmHg (35-45); ABG PH 7.39 pH Units (7.32-7.45); ABG PO2 70 mmHg (85-104); ABG TCO2 26 mEq/L (20-26); Blood Gas Modality VC; Blood Gas PEEP 10 cm H2O; Blood Gas Respiration Rate 22; Blood Gas VT 500 cc
[2017-08-06] MEDS: Aztreonam 2,000 MG in Water for inj. (sterile) 20 ML IVP SCH ×3 (04:24→19:47)
[2017-08-06] MEDS: Vancomycin 2,000 MG in D5% in Water 500 ML IVPB SCH (04:25)
[2017-08-06 05:01] LABS: Basophils % 0.1 %; Hematocrit 28.6 % (37.5-50.1); Hemoglobin 9.4 g/dL (12.9-16.9); Immature Granulocytes % 1.5 % (0-4); Lymphocytes % 4.1 %; Mean Corpuscular HGB Conc 32.9 g/dL (31.6-35.5); Mean Corpuscular Hemoglobin 30.5 pg (28.0-33.3); Mean Corpuscular Volume 92.9 fL (83.0-100.0); Mean Platelet Volume 9.9 fL (9.4-12.4); Monocytes # 3.3 K/mcL (0.0-1.3); Monocytes % 14.2 %; Neutrophils # 18.7 K/mcL (1.6-8.9); Platelet Count 502 K/mcL (140-400); Red Blood Count 3.08 M/mcL (4.19-5.50); Red Cell Distribution Width 13.4 % (11.5-14.5); Segmented Neutrophils % 80.1 %
[2017-08-06 05:07] LABS: INR 1.5; Prothrombin Time 16.3 Seconds (9.4-12.1)
[2017-08-06 05:10] LABS: Activated Partial Thrombo Time 26.3 Seconds (26.0-36.0)
[2017-08-06 05:16] LABS: BUN/Creatinine Ratio 14 (6-26); Blood Urea Nitrogen 9 mg/dL (8-26); Calcium 8.2 mg/dL (8.6-10.8); Carbon Dioxide 23 mEq/L (19-29); Chloride 106 mEq/L (98-109); Glucose 124 mg/dL (70-99); Magnesium 1.7 mg/dL (1.6-2.6); Osmolality,Calculated 286 (280-300); Potassium 4.6 mEq/L (3.5-4.5); Sodium 138 mEq/L (136-145); eGFR For African Americans > 60 (> 60); eGFR For Non-African Americans > 60 (> 60)
[2017-08-06] MEDS: *HR* Heparin 5,000 UNIT/ML VIAL SQ SCH ×2 (05:27→18:49)
--- NOTE | 2017-08-06 07:15 | Cardiothoracic Progress Note ---
Date of Encounter: 08/06/17 Time of Encounter: 07:12 - Assessment and plan (1) Pericardial effusion Current Visit: Yes Status: Acute The patient remained stable overnight. He is currently intubated and sedated. He remains in normal sinus rhythm. He'll be weaned on the ventilator today. The assessment and plan as outlined above was discussed with the patient and/or family members who expressed understanding and agreement. All questions were answered. - Subjective Procedure(s) Performed: POD#1 Median sternotomy with anterior pericardial resection Interval history: The patient remained hemodynamically stable overnight. He remains intubated and is breathing comfortably. He has remained in normal sinus rhythm. Vital Signs, Last 4 Hours Temp Pulse Resp BP Pulse Ox 08/06/17 06:00 100 22 115/73 92 08/06/17 05:00 96 22 112/69 95 08/06/17 04:54 22 111/74 93 08/06/17 04:00 101 22 117/69 94 08/06/17 03:46 22 111/71 95 08/06/17 03:33 98.8 F Clinical Data, last 8 Hours Output, Chest Tube Drainage 32 Amount [#2] Output, Chest Tube Drainage 17 Amount [#2] Output, Chest Tube Drainage 50 Amount [#1] Output, Chest Tube Drainage 30 Amount [#1] - Physical Examination General: Conversant, No Apparent Distress Neck: No JVD, Normal carotid pulses Cardiac: Reg Rate and Rhythm, Normal S1 and S2, No Murmur Incision: No signs of infection, Dry/intact dressing Sternum: Stable Chest tubes: Minimal drainage, Other (No air leak.) Lungs: Normal Breath Sounds, No Wheeze, Rales, Rhonchi Neuro: Other (Intubated and sedated.) Vascular: Normal capillary refill Extremities: No Clubbing, No Cyanosis, No Edema, Normal Pulses - Labs 08/06/17 04:23 08/06/17 04:23 Lab Results, Last 24 hours 08/05/17 08/05/17 08/05/17 15:26 15:26 15:26 WBC 30.8 H* Hgb 10.0 L Hct 30.5 L Plt Count 590 H INR 1.6 APTT 31.0 Sodium Potassium Chloride Carbon Dioxide BUN Creatinine Glucose 143 H Calcium Magnesium 08/05/17 08/06/17 08/06/17 15:26 04:23 04:23 WBC 23.3 H Hgb 9.4 L Hct 28.6 L Plt Count 502 H INR 1.5 APTT 26.3 Sodium 136 Potassium 4.6 H Chloride 106 Carbon Dioxide 23 BUN 10 Creatinine 0.69 L Glucose 140 H Calcium 7.5 L Magnesium 1.5 L 08/06/17 04:23 WBC Hgb Hct Plt Count INR APTT Sodium 138 Potassium 4.6 H Chloride 106 Carbon Dioxide 23 BUN 9 Creatinine 0.65 L Glucose 124 H Calcium 8.2 L Magnesium 1.7 - Imaging Chest Xray: image reviewed (Stable cardiomegaly. No pneumothorax.) - VTE Documentation of Mechanical Device: Intermittent pneumatic compression device Consult Discharge Plan - Plan Referrals: NONE,PCP [Primary Care Provider] -
[2017-08-06] MEDS ORDERED: Furosemide 40 MG/4 ML VIAL IVP ONE (07:32)
--- NOTE | 2017-08-06 07:38 | Pulmonology Progress Note ---
<Haris Ibrahim Juana - Last Filed: 08/06/17 11:37> Date of Encounter: 08/06/17 Time of Encounter: 07:38 Assessment and Plan (1) Acute respiratory failure with hypoxia Current Visit: Yes Status: Acute Patient remains intubated postprocedure. He is having some hypoxemia despite high PEEP and FiO2. Will increase sedation for better ventilator synchronization. Lung recruitment maneuvers. Reassess ABG in the morning. (2) Pericardial effusion with cardiac tamponade Current Visit: Yes Status: Acute Patient presented with acute onset chest pain and shortness of breath that had been present for 3 days and gradually worsening. Patient was found to have a large pericardial effusion with cardiac tamponade. He was taken emergently to the OR for pericardial window and drainage of the fluid. This point the cause is unclear. Fluid has been sent to the lab for cell count, culture, chemistry testing, cytology, flow cytometry. Given the recent cholecystectomy (3) Atrial fibrillation with RVR Current Visit: Yes Status: Acute Patient presented with A. fib with RVR. Secondary to tamponade as discussed above. postoperatively this has resolved currently in normal sinus rhythm. Patient was initiated on amiodarone and heparin but this has been discontinued and cardiology recommendations. 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 (4) Leukocytosis Current Visit: Yes Status: Acute Unclear if this is a stress reaction given his critical illness as discussed above. Blood cultures are been drawn, will send urine culture. Broad-spectrum antibiotics with vancomycin, aztreonam, clindamycin and been initiated. Continue to follow leukocytosis and culture results.. Qualifiers: Leukocytosis type: unspecified Qualified Code(s): D72.829 - Elevated white blood cell count, unspecified (5) History of cholecystectomy Current Visit: Yes Status: Acute Unclear if his current presentation of tamponade as related to his recent cholecystectomy. We will obtain CT of the abdomen and pelvis to rule out any intra-abdominal process that may be contributing. Broad-spectrum antibiotics as above. Subjective Principal diagnosis: Cardiac tamponade Objective PUL Vital signs: Last Vital Signs Temp 98.8 F 08/06/17 03:33 Pulse 100 08/06/17 06:00 Resp 22 08/06/17 06:00 BP 115/73 08/06/17 06:00 Pulse Ox 92 08/06/17 06:00 Ventilator Settings Ventilator Settings: Ventilator Settings, Last 8 Hours Ventilator Mode VC+ Ventilator Mode VC+ Ventilator Mode VC+ Ventilator Mode VC+ Ventilator Mode VC+ Ventilator Mode VC+ Ventilator Mode VC+ Ventilator Mode VC+ Ventilator Mode VC+ Ventilator Mode VC+ Ventilator Tidal Volume 500 Setting Ventilator Tidal Volume 500 Setting Ventilator Tidal Volume 500 Setting Ventilator Tidal Volume 500 Setting Ventilator Tidal Volume 500 Setting Ventilator Tidal Volume 500 Setting Ventilator Tidal Volume 500 Setting Ventilator Tidal Volume 500 Setting Ventilator Tidal Volume 500 Setting Ventilator Tidal Volume 500 Setting Ventilator Respiratory Rate 22 Setting Ventilator Respiratory Rate 22 Setting Ventilator Respiratory Rate 22 Setting Ventilator Respiratory Rate 22 Setting Ventilator Respiratory Rate 22 Setting Ventilator Respiratory Rate 22 Setting Ventilator Respiratory Rate 22 Setting Ventilator Respiratory Rate 22 Setting Ventilator Respiratory Rate 22 Setting Ventilator Respiratory Rate 22 Setting Actual Respiratory Rate 22 Actual Respiratory Rate 22 Actual Respiratory Rate 22 Actual Respiratory Rate 22 Actual Respiratory Rate 22 Actual Respiratory Rate 22 Actual Respiratory Rate 27 Actual Respiratory Rate 27 Actual Respiratory Rate 22 Positive End Expiratory 10 Pressure Positive End Expiratory 10 Pressure Positive End Expiratory 10 Pressure Positive End Expiratory 10 Pressure Positive End Expiratory 10 Pressure Positive End Expiratory 10 Pressure Positive End Expiratory 10 Pressure Positive End Expiratory 10 Pressure Positive End Expiratory 10 Pressure Positive End Expiratory 10 Pressure Peak Inspiratory Airway 39 Pressure Peak Inspiratory Airway 39 Pressure Peak Inspiratory Airway 35 Pressure Peak Inspiratory Airway 41 Pressure Peak Inspiratory Airway 41 Pressure Peak Inspiratory Airway 38 Pressure Peak Inspiratory Airway 21 Pressure Peak Inspiratory Airway 16 Pressure Peak Inspiratory Airway 34 Pressure Results - Laboratory Findings CBC and BMP: 08/06/17 04:23 08/06/17 04:23 ABG ABG pH 7.39 pH Units (7.32-7.45) 08/06/17 04:15 ABG pCO2 41 mmHg (35-45) 08/06/17 04:15 ABG pO2 70 mmHg (85-104) L 08/06/17 04:15 ABG O2 Saturation 94 % (95-98) L 08/06/17 04:15 PT/INR, D-dimer PT 16.3 Seconds (9.4-12.1) H 08/06/17 04:23 Abnormal lab findings: Abnormal lab results WBC 23.3 K/mcL (4.3-11.1) H 08/06/17 04:23 RBC 3.08 M/mcL (4.19-5.50) L 08/06/17 04:23 Hgb 9.4 g/dL (12.9-16.9) L 08/06/17 04:23 Hct 28.6 % (37.5-50.1) L 08/06/17 04:23 Plt Count 502 K/mcL (140-400) H 08/06/17 04:23 Neutrophils # 18.7 K/mcL (1.6-8.9) H 08/06/17 04:23 Monocytes # 3.3 K/mcL (0.0-1.3) H 08/06/17 04:23 Hypersegmented Neuts Present (Not Present) A 08/05/17 15:26 Toxic Granulation Present (Not Present) A 08/05/17 15:26 PT 16.3 Seconds (9.4-12.1) H 08/06/17 04:23 ABG pO2 70 mmHg (85-104) L 08/06/17 04:15 ABG O2 Saturation 94 % (95-98) L 08/06/17 04:15 Potassium 4.6 mEq/L (3.5-4.5) H 08/06/17 04:23 Creatinine 0.65 mg/dL (0.72-1.25) L 08/06/17 04:23 Glucose 124 mg/dL (70-99) H 08/06/17 04:23 POC Glucose 139 (58-89) H 08/05/17 14:37 Calcium 8.2 mg/dL (8.6-10.8) L 08/06/17 04:23 Serum Total Protein 5.9 g/dL (6.0-8.3) L 08/05/17 15:26 HDL Cholesterol 22 mg/dL (40-59) L 08/05/17 15:26 Ur Squamous Epith Cells Moderate per lpf (None-Few) H 08/05/17 18:30 Pericard Tot Nuc Cells 2954 TNC/mcL (0-1000) H 08/05/17 13:25 - Microbiology Findings Microbiology Findings: Microbiology, Last 48 Hours 08/05/17 13:25 Body Fluid Culture - Preliminary Pericardial Fluid - Clinical Findings Intake & Output: Intake & Output 08/05/17 08/05/17 08/06/17 15:59 23:59 07:59 Intake Total 0 / 110 735 / 735 120 / 120 Output Total 400 / 400 1504 / 1504 382 / 382 Balance -400 / -290 -769 / -769 -262 / -262 - VTE Documentation of Mechanical Device: Intermittent pneumatic compression device Consult Discharge Plan - Plan Referrals: NONE,PCP [Primary Care Provider] - <Grant Lakhani W - Last Filed: 08/06/17 11:59> Date of Encounter: 08/06/17 Objective PUL Vital signs: Last Vital Signs Temp 98.3 F 08/06/17 08:12 Pulse 94 08/06/17 08:30 Resp 22 08/06/17 08:30 BP 116/77 08/06/17 08:30 Pulse Ox 94 08/06/17 08:30 Ventilator Settings Ventilator Settings: Ventilator Settings, Last 8 Hours Ventilator Mode VC+ Ventilator Mode VC+ Ventilator Mode VC+ Ventilator Mode VC+ Ventilator Mode VC+ Ventilator Mode VC+ Ventilator Mode VC+ Ventilator Mode VC+ Ventilator Mode VC+ Ventilator Mode VC+ Ventilator Mode VC+ Ventilator Tidal Volume 500 Setting Ventilator Tidal Volume 500 Setting Ventilator Tidal Volume 500 Setting Ventilator Tidal Volume 500 Setting Ventilator Tidal Volume 500 Setting Ventilator Tidal Volume 500 Setting Ventilator Tidal Volume 500 Setting Ventilator Tidal Volume 500 Setting Ventilator Tidal Volume 500 Setting Ventilator Tidal Volume 500 Setting Ventilator Tidal Volume 500 Setting Ventilator Tidal Volume 500 Setting Ventilator Respiratory Rate 22 Setting Ventilator Respiratory Rate 22 Setting Ventilator Respiratory Rate 22 Setting Ventilator Respiratory Rate 22 Setting Ventilator Respiratory Rate 22 Setting Ventilator Respiratory Rate 22 Setting Ventilator Respiratory Rate 22 Setting Ventilator Respiratory Rate 22 Setting Ventilator Respiratory Rate 22 Setting Ventilator Respiratory Rate 22 Setting Ventilator Respiratory Rate 22 Setting Ventilator Respiratory Rate 22 Setting Actual Respiratory Rate 22 Actual Respiratory Rate 22 Actual Respiratory Rate 22 Actual Respiratory Rate 22 Actual Respiratory Rate 22 Actual Respiratory Rate 22 Actual Respiratory Rate 22 Actual Respiratory Rate 22 Actual Respiratory Rate 22 Actual Respiratory Rate 27 Actual Respiratory Rate 27 Positive End Expiratory 12 Pressure Positive End Expiratory 12 Pressure Positive End Expiratory 12 Pressure Positive End Expiratory 10 Pressure Positive End Expiratory 10 Pressure Positive End Expiratory 10 Pressure Positive End Expiratory 10 Pressure Positive End Expiratory 10 Pressure Positive End Expiratory 10 Pressure Positive End Expiratory 10 Pressure Positive End Expiratory 10 Pressure Positive End Expiratory 10 Pressure Peak Inspiratory Airway 37 Pressure Peak Inspiratory Airway 35 Pressure Peak Inspiratory Airway 34 Pressure Peak Inspiratory Airway 39 Pressure Peak Inspiratory Airway 39 Pressure Peak Inspiratory Airway 35 Pressure Peak Inspiratory Airway 41 Pressure Peak Inspiratory Airway 41 Pressure Peak Inspiratory Airway 38 Pressure Peak Inspiratory Airway 21 Pressure Peak Inspiratory Airway 16 Pressure Results - Laboratory Findings CBC and BMP: 08/06/17 04:23 08/06/17 04:23 ABG ABG pH 7.39 pH Units (7.32-7.45) 08/06/17 04:15 ABG pCO2 41 mmHg (35-45) 08/06/17 04:15 ABG pO2 70 mmHg (85-104) L 08/06/17 04:15 ABG O2 Saturation 94 % (95-98) L 08/06/17 04:15 PT/INR, D-dimer PT 16.3 Seconds (9.4-12.1) H 08/06/17 04:23 Abnormal lab findings: Abnormal lab results WBC 23.3 K/mcL (4.3-11.1) H 08/06/17 04:23 RBC 3.08 M/mcL (4.19-5.50) L 08/06/17 04:23 Hgb 9.4 g/dL (12.9-16.9) L 08/06/17 04:23 Hct 28.6 % (37.5-50.1) L 08/06/17 04:23 Plt Count 502 K/mcL (140-400) H 08/06/17 04:23 Neutrophils # 18.7 K/mcL (1.6-8.9) H 08/06/17 04:23 Monocytes # 3.3 K/mcL (0.0-1.3) H 08/06/17 04:23 Hypersegmented Neuts Present (Not Present) A 08/05/17 15:26 Toxic Granulation Present (Not Present) A 08/05/17 15:26 PT 16.3 Seconds (9.4-12.1) H 08/06/17 04:23 ABG pO2 70 mmHg (85-104) L 08/06/17 04:15 ABG O2 Saturation 94 % (95-98) L 08/06/17 04:15 Potassium 4.6 mEq/L (3.5-4.5) H 08/06/17 04:23 Creatinine 0.65 mg/dL (0.72-1.25) L 08/06/17 04:23 Glucose 124 mg/dL (70-99) H 08/06/17 04:23 POC Glucose 139 (58-89) H 08/05/17 14:37 Calcium 8.2 mg/dL (8.6-10.8) L 08/06/17 04:23 Serum Total Protein 5.9 g/dL (6.0-8.3) L 08/05/17 15:26 HDL Cholesterol 22 mg/dL (40-59) L 08/05/17 15:26 Ur Squamous Epith Cells Moderate per lpf (None-Few) H 08/05/17 18:30 Pericard Tot Nuc Cells 2954 TNC/mcL (0-1000) H 08/05/17 13:25 - Microbiology Findings Microbiology Findings: Microbiology, Last 48 Hours 08/05/17 13:25 Body Fluid Culture - Preliminary Pericardial Fluid - Clinical Findings Intake & Output: Intake & Output 08/05/17 08/06/17 08/06/17 23:59 07:59 15:59 Intake Total 735 / 735 1007 / 1007 8 / 8 Output Total 1504 / 1504 712 / 712 300 / 300 Balance -769 / -769 295 / 295 -292 / -292 - Attending Attestation I examined this patient and my medical decision-making was reviewed with the Resident Physician. I agree with the documented findings, disposition and treatment plan as described except to the extent set forth below. We independently had [id number] contact with the patient Patient seen and examined at bedside Labs, radiology, chart personally reviewed. Management was reviewed during multidisciplinary critical care rounds. 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 SAT planned today. Pulm: Hypoxic respiratory failure on vent. impaired oxygenation s/t V/Q mismatch from ATx. Vent settings noted I have increased PEEP today with improvement in lung recruitment. not a candidate for SBT because of hypoxia Cards: Pericarditis with Pericardial tamponade s/p emergent window yesterday. Start NSAID and Colchicine Chest tube managed by CTS. minimal output today. FEN-GI: NPO for now. PPI prophylaxis given Renal: no ihsan good UOP cont to monitor electrolytes and sCr daily. ID: Sepsis of unclear etiology but viral infection suspected he remains on broad spectrum ABx with plan to deescalate. Heme/Onc: DVT prophylaxis given Endo: Glucose Monitored Integ/MSK: Skin Care per routine ICU Nursing Protocol to prevent ulcers. Lines: All lines examined without evidence of infection : Dispo: Reamin in ICU for Vent Mngt CODE: Full Code Father updated at bedside.
[2017-08-06] MEDS: Pantoprazole 40 MG VIAL IVP SCH (07:56)
[2017-08-06] MEDS: Chlorhexidine Rinse 15 ML MOUTHWASH MM SCH ×2 (07:57→19:47)
[2017-08-06] MEDS ORDERED: Furosemide 20 MG/2 ML VIAL IVP SCH (08:00)
[2017-08-06] MEDS: FentaNYL (PF) 1,000 MCG in 0.9 % Sodium Chloride 80 ML IVC SCH ×2 (08:44→14:59)
[2017-08-06] MEDS: niCARdipine 40 MG/200 ML MLS IVC SCH ×3 (11:58→22:28)
--- NOTE | 2017-08-06 12:43 | Cardiology Progress Note ---
Date of Encounter: 08/06/17 Time of Encounter: 12:42 Assessment and Plan (1) Pericardial effusion with cardiac tamponade Current Visit: Yes Status: Acute Limited echo 08/05/17 LVEF >70%. Large circumferential pericardial effusion present, evidence of tamponade. There is compression of the right ventricle. The IVC is not dilated. < 50% respiratory change. Median sternotomy with anterior pericardial resection. POD #1. CT surgery following for further management. Cytology pending. Recommend repeating a full echo prior to discharge. Cardiology signing off. Reconsult PRN. (2) Atrial fibrillation with RVR Current Visit: Yes Status: Acute A-Fib RVR HR 200s in setting of pericardial effusion with tamponade. Loaded with IV amiodarone. Bedside echo revealed large pericardial effusion with evidence of tamponade. S/P Median sternotomy with anterior pericardial resection. POD #1. Pt has converted/maintained SR since resection. [id number], no intermediate project manager anticoagulation warranted. Cardiology signing off. Reconsult PRN. Discussion w patient/family: The assessment and plan as outlined above was discussed with the patient and/or family members who expressed understanding and agreement. All questions were answered. Thank you for involving us in the care of your patient. Please call with any questions. I will discuss all the above with Dr. Jacobson and make changes as necessary. Subjective Principal diagnosis: Cardiac tamponade Interval history: S/P median sternotomy with anterior pericardial resection yesterday. Intubated. Remains SR on tele. Objective Vital Signs, Last 4 Hours Temp Pulse Resp BP Pulse Ox 08/06/17 11:55 98.1 F 08/06/17 11:30 96 22 108/66 94 08/06/17 11:09 22 111/66 97 08/06/17 10:30 92 22 108/67 95 08/06/17 09:30 93 22 110/67 95 08/06/17 09:25 22 116/74 94 Vital Signs Temp Pulse Resp BP Pulse Ox 08/06/17 11:55 98.1 F 08/06/17 11:30 96 22 108/66 94 08/06/17 11:09 22 111/66 97 08/06/17 10:30 92 22 108/67 95 08/06/17 09:30 93 22 110/67 95 08/06/17 09:25 22 116/74 94 08/06/17 08:30 94 22 116/77 94 08/06/17 08:12 98.3 F 08/06/17 07:34 22 108/69 93 08/06/17 07:25 98.3 F 92 22 108/72 93 08/06/17 06:00 100 22 115/73 92 08/06/17 05:00 96 22 112/69 95 08/06/17 04:54 22 111/74 93 08/06/17 04:00 101 22 117/69 94 08/06/17 03:46 22 111/71 95 08/06/17 03:33 98.8 F 08/06/17 03:00 102 22 101/64 94 08/06/17 01:15 23 131/78 93 08/06/17 01:00 111 27 130/82 94 08/06/17 00:00 107 22 105/67 93 08/05/17 23:22 99.0 F 08/05/17 23:10 22 108/70 92 08/05/17 23:00 105 22 108/70 91 08/05/17 22:00 108 22 136/81 90 08/05/17 21:00 96 22 113/66 92 08/05/17 20:00 96 22 149/105 96 08/05/17 19:27 22 118/77 94 08/05/17 19:00 98 22 119/76 97 08/05/17 18:55 98.4 F 08/05/17 18:15 22 95 08/05/17 18:00 85 22 113/72 95 08/05/17 17:00 96 22 108/70 92 08/05/17 16:00 100 22 123/78 92 08/05/17 15:37 22 142/86 97 08/05/17 15:13 107 22 148/87 98 08/05/17 14:58 109 08/05/17 14:35 18 97 08/05/17 13:39 24 111/88 Intake and Output 08/05/17 08/06/17 08/06/17 23:59 07:59 15:59 Intake Total 735 / 735 1007 / 1007 108 / 108 Output Total 1504 / 1504 712 / 712 2595 / 2595 Balance -769 / -769 295 / 295 -2487 / -2486 Intake: IV Fluids 735 / 735 1007 / 1007 108 / 108 KCl 20 mEq in 0.9% Sodium 800 / 800 Chloride 20 meq In 1,000 ml @ 50 mls/hr IVC .Q20H [facility] Rx#: [id number] FentaNYL (PF) 1,000 MCG In 0.9 5 / 5 87 / 87 8 / 8 % Sodium Chloride 80 ML @ 25 MCG/HR 2.5 mls/hr IVC CONT [facility] Rx#:[id number] Diprivan 1,000 mg In 100 ml @ 5 100 / 100 100 / 100 100 / 100 MCG/KG/MIN 3.946 mls/hr IVC . Q24H [facility] Rx#:[id number] Azactam 2,000 MG In Water for 20 20 / 20 inj. (sterile) 20 ML @ 300 mls/ hr IVP Q8H [facility] Rx#:[id number] Calcium Chloride 1,000 MG In 0. 60 / 60 9 % Sodium Chloride 50 ML @ 50 mls/hr IVPB ONCE PRN Rx#: [id number] Cleocin Premix 900 MG/50 ML 900 50 / 50 mg In 50 ml @ 50 mls/hr IVPB Q8HR [facility] Rx#:[id number] Vancocin 2,000 MG In Dextrose 5 500 / 500 % 500 ML @ 250 mls/hr IVPB Q12H [facility] Rx#:[id number] Output: Catheter 1325 / 1325 600 / 600 2550 / 2550 Chest Tube Drainage 179 / 179 112 / 112 45 / 45 #1 140 / 140 80 / 80 45 / 45 #2 39 / 39 32 / 32 0 / 0 General: Other (intubated) HEENT: Atraumatic, Normocephaly, Mucus Membranes Moist Neck: No JVD, Normal carotid pulses Cardiac: Reg Rate and Rhythm, Normal S1 and S2, No Murmur Lungs: Normal Breath Sounds, No Wheeze, Rales, Rhonchi Neuro: Alert and responsive, No focal deficits noted Abdomen: Soft, Non-Tender Skin: Other (s/p median sternotomy, dressing intact.) Musculoskeletal: Other (chest wall tenderness s/p sternotomy) Extremities: No Clubbing, No Cyanosis, No Edema, Normal Pulses Results 08/06/17 04:23 08/06/17 04:23 Lab Results 08/05/17 08/05/17 08/05/17 15:26 15:26 15:26 WBC 30.8 H* Hgb 10.0 L Hct 30.5 L Plt Count 590 H INR 1.6 APTT 31.0 Sodium Potassium Chloride Carbon Dioxide BUN Creatinine Glucose 143 H Calcium Magnesium 08/05/17 08/06/17 08/06/17 15:26 04:23 04:23 WBC 23.3 H Hgb 9.4 L Hct 28.6 L Plt Count 502 H INR 1.5 APTT 26.3 Sodium 136 Potassium 4.6 H Chloride 106 Carbon Dioxide 23 BUN 10 Creatinine 0.69 L Glucose 140 H Calcium 7.5 L Magnesium 1.5 L 08/06/17 04:23 WBC Hgb Hct Plt Count INR APTT Sodium 138 Potassium 4.6 H Chloride 106 Carbon Dioxide 23 BUN 9 Creatinine 0.65 L Glucose 124 H Calcium 8.2 L Magnesium 1.7 Short CBC 08/06/17 08/05/17 Range/Units 04:23 15:26 WBC 23.3 H 30.8 H* (4.3-11.1) K/mcL Hgb 9.4 L 10.0 L (12.9-16.9) g/dL Hct 28.6 L 30.5 L (37.5-50.1) % Plt Count 502 H 590 H (140-400) K/mcL Neutrophils # 18.7 H 25.1 H (1.6-8.9) K/mcL BMP 08/06/17 08/05/17 08/05/17 Range/Units 04:23 15:26 15:26 Sodium 138 136 (136-145) mEq/L Potassium 4.6 H 4.6 H (3.5-4.5) mEq/L Chloride 106 106 (98-109) mEq/L Carbon Dioxide 23 23 (19-29) mEq/L BUN 9 10 (8-26) mg/dL Creatinine 0.65 L 0.69 L (0.72-1.25) mg/dL Glucose 124 H 140 H 143 H (70-99) mg/dL Calcium 8.2 L 7.5 L (8.6-10.8) mg/dL Urine 08/05/17 Range/Units 18:30 Urine Color Yellow (Yellow) Urine Clarity Clear (Clear) Urine pH 6.5 (5.0-8.0) pH Units Ur Specific Lohman 1.013 (1.010-1.025) Urine Protein Trace (Neg-Trace) mg/dL Urine Glucose (UA) Normal (Normal) mg/dL Impressions Echocardiogram Limited Views 08/05/17 11:30 Impressions: LVEF >70%. Normal LV chamber size, wall thickness and function. Large circumferential pericardial effusion present. There is echocardiographic evidence of tamponade. There is compression of the right ventricle. The IVC is not dilated. < 50% respiratory change. ER notified. Dr. Park already aware and plan of action already established. Left Ventricular Wall Motion: Rest Echo Findings All wall segments showed normal motion. Findings: Study Quality * Technically adequate exam. ECG Findings * Atrial fibrillation, RVR. Left Ventricle * LVEF >70%. * Normal LV chamber size, wall thickness and function. Right Ventricle * Normal right ventricular size with evidence of compression from pericardial effusion. Left Atrium * Normal left atrial size. Right Atrium * Right atrium is not well visualized. Pericardium * Large circumferential pericardial effusion present. * There is echocardiographic evidence of tamponade. There is compression ofthe right ventricle. IVC * The IVC is not dilated. * < 50% respiratory change. Chest X-Ray 08/05/17 14:27 IMPRESSION: Endotracheal tube appears in satisfactory position. Sternotomy wires noted. D/ / Lan Baker MD / Lan Baker MD Interpreting Provider: Lan Baker MD Chest X-Ray 08/05/17 14:56 IMPRESSION: Postsurgical changes from recent median sternotomy identified without evidence of complication. Life-support appliances appear in satisfactory position. Bibasilar atelectasis, left greater than right. Follow-up radiographs recommended. D/ / Lan Baker MD / Lan Baker MD Interpreting Provider: Lan Baker MD X-Ray 08/05/17 14:56 IMPRESSION: NG tube appears in satisfactory position. D/ / Lan Baker MD / Lan Baker MD Interpreting Provider: Lan Baker MD Abdomen/Pelvis CT 08/05/17 15:12 IMPRESSION: No abscess identified. Mild pelvic free fluid. D/ / Valeriano Barba MD / Valeriano Barba MD Interpreting Provider: Valeriano Barba MD Chest CT 08/05/17 15:12 IMPRESSION: Postsurgical changes from recent median sternotomy. Mild pericardial effusion. Partial atelectasis of both lower lobes with bilateral pleural effusions. D/ / Valeriano Barba MD / Valeriano Barba MD Interpreting Provider: Valeriano Barba MD Chest X-Ray 08/06/17 04:00 IMPRESSION: 1. Postsurgical changes with mild bilateral effusions and mild right lung base and significant left lung base atelectasis. 2. Endotracheal tube tip lies approximately 6 cm above the alonzo. 3. No significant pneumothorax. D/ / 08/06/2017 08:13:29 Delonte Browne MD / [email or web address] Interpreting Provider: Delonte Browne MD Active Medications Acetaminophen (Tylenol) 650 mg PO Q6HR PRN PRN Reason: FEVER/PAIN Stop: 02/04/18 14:57 Acetaminophen (Tylenol 650mg Supp) 650 mg RC Q6HR PRN PRN Reason: FEVER/PAIN Stop: 02/04/18 14:57 Albuterol Sulfate (Albuterol Inhaler) 2 puff IH [id number] [facility] Stop: 02/04/18 16:01 Last Admin: 08/06/17 11:09 Dose: 2 puff Chlorhexidine Gluconate (Chlorhexidine Rinse) 15 ml MM BID [facility] Stop: 02/04/18 21:01 Last Admin: 08/06/17 07:57 Dose: 15 ml Colchicine (Colcrys) 0.6 mg PO BID [facility] Stop: 02/05/18 21:01 Dextrose/Water (Dextrose 50% (Syg)) 12.5 ml IVP AD PRN PRN Reason: Hypoglycemia Stop: 02/04/18 14:57 Docusate Sodium (Colace) 100 mg PO BID [facility] Stop: 02/05/18 09:01 Last Admin: 08/06/17 08:57 Dose: Not Given Heparin Sodium (Porcine) (Heparin) 5,000 unit SQ Q12HCO [facility] Stop: 02/04/18 18:01 Last Admin: 08/06/17 05:27 Dose: 5,000 unit Aztreonam 2,000 mg/ Sterile (Water) 20 mls @ 300 mls/hr IVP Q8H [facility] Stop: 02/04/18 12:31 Last Admin: 08/06/17 12:40 Dose: 300 mls/hr Albumin Human (Alburx 5%) 12.5 gm in 250 mls @ 999 mls/hr IVPB AD PRN PRN Reason: Hypotension Calcium Chloride 1,000 mg/ (Sodium Chloride) 60 mls @ 50 mls/hr IVPB ONCE PRN PRN Reason: Post-op Ca less than 8 meq/L Stop: 02/04/18 14:57 Last Infusion: 08/05/17 19:37 Dose: Infused Insulin Human Regular 100 unit (/ Sodium Chloride) 101 mls @ 1.01 mls/hr IVC CONT [facility]; 1 UNIT/HR PRN Reason: Protocol Stop: 02/04/18 15:01 Last Admin: 08/05/17 16:27 Dose: Not Given Magnesium Sulfate (Magnesium Sulfate Premix 2gm/50ml) 2 gm in 50 mls @ 50 mls/ hr IVPB Q5H PRN PRN Reason: Magnesium less than 2.4 Stop: 02/04/18 14:57 Nicardipine HCl (Cardene Premix 40mg/200ml) 40 mg in 200 mls @ 25 mls/hr IVC .Q8H [facility]; 5 MG/HR PRN Reason: Protocol Stop: 02/04/18 15:01 Last Admin: 08/06/17 11:58 Dose: Not Given Potassium Chloride (Potassium Chloride 10 Meq/100ml) 10 meq in 100 mls @ 100 mls/hr IVPB ONCE PRN PRN Reason: Potassium 3.6-3.9 Stop: 02/04/18 14:57 Potassium Chloride (Potassium Chloride 20 Meq/100 Ml) 20 meq in 100 mls @ 100 mls/hr IVPB Q1H PRN PRN Reason: Potassium 3.3-3.5 Stop: 02/04/18 14:57 Potassium Chloride (Potassium Chloride 20 Meq/100 Ml) 40 meq in 200 mls @ 100 mls/hr IVPB Q1H PRN PRN Reason: SEE COMMENTS Stop: 02/04/18 14:57 Fentanyl Citrate 1,000 mcg/ (Sodium Chloride) 100 mls @ 2.5 mls/hr IVC CONT [facility] ; 25 MCG/HR PRN Reason: Protocol Stop: 02/04/18 15:46 Last Admin: 08/06/17 08:44 Dose: 150 mcg/hr, 15 mls/hr Propofol (Diprivan) 1,000 mg in 100 mls @ 3.946 mls/hr IVC .Q24H [facility]; 5 MCG/KG/ MIN PRN Reason: Protocol Stop: 02/04/18 15:46 Last Admin: 08/06/17 09:31 Dose: 25 mcg/kg/min, 19.731 mls/hr Ibuprofen (Motrin Susp) 600 mg PO Q8H [facility] Stop: 02/05/18 12:01 Last Admin: 08/06/17 12:41 Dose: 600 mg Insulin Human Regular (Humulin R) 5 unit IV ONCE PRN PRN Reason: SEE COMMENTS Stop: 02/04/18 14:57 Metoclopramide HCl (Reglan) 10 mg IVP Q6HR [facility] Stop: 08/08/17 18:01 Last Admin: 08/06/17 05:26 Dose: 10 mg Morphine Sulfate (Morphine Sulfate) 3 mg IVP Q1H PRN PRN Reason: Moderate Pain Stop: 02/04/18 14:57 Morphine Sulfate (Morphine Sulfate) 6 mg IVP Q1H PRN PRN Reason: Severe Pain Stop: 02/04/18 14:57 Naloxone HCl (Narcan) 0.4 mg IVP Q2MIN PRN PRN Reason: Opioid Reversal Stop: 02/04/18 14:57 Ondansetron HCl (Zofran) 4 mg IVP Q6H PRN PRN Reason: Nausea And Vomiting Stop: 02/04/18 14:57 Oxycodone/Acetaminophen (Percocet 5/325) 1 each PO Q4HR PRN PRN Reason: Severe Pain Stop: 02/04/18 14:57 Pantoprazole Sodium (Protonix) 40 mg IVP DAILY [facility] Stop: 02/04/18 15:01 Last Admin: 08/06/17 07:56 Dose: 40 mg Sucralfate (Carafate) 1 gm GTUBE Q6HR [facility] Stop: 02/04/18 18:01 Last Admin: 08/06/17 12:40 Dose: 1 gm - Imaging and Cardiology Echo: report reviewed - EKG Interpretation EKG results cardiology: other (12 hr tele AVG HR 99, SR, no significant pauses or arrhythmias noted.) - VTE Documentation of Mechanical Device: Intermittent pneumatic compression device Consult Discharge Plan - Plan Referrals: NONE,PCP [Primary Care Provider] -
[2017-08-06] MEDS ORDERED: Vancomycin 1,500 MG in D5% in Water 250 ML IVPB SCH ×2 (15:00→16:30)
[2017-08-06] MEDS ORDERED: Ringers Solution, Lactated 500 ML IVC ONE (15:22)
[2017-08-06] MEDS ORDERED: Ringers Solution, Lactated 1,000 ML ONE (15:22)
[2017-08-06] MEDS: Insulin Human Regular 100 UNIT in 0.9 % Sodium Chloride 100 ML IVC SCH (15:44)
[2017-08-06 16:01] LABS: Amphetamine Screen,Urine Negative ng/mL (Cutoff=1000); Barbiturate Screen,Urine Negative ng/mL (Cutoff=200); Benzodiazepines Screen,Urine Positive ng/mL (Cutoff=200); Cannabinoid Screen,Urine Negative ng/mL (Cutoff = 50); Cocaine Screen,Urine Negative ng/mL (Cutoff= 300); Opiate Screen,Urine Negative ng/mL (Cutoff=300); Phencyclidine Screen,Urine Negative ng/mL (Cutoff=25)
[2017-08-06 17:02] LABS: Adenovirus Not Detected (Not Detect); Bordetella Pertussis Not Detected (Not Detect); Chlamydophila pneumoniae Not Detected (Not Detect); Coronavirus 229E Not Detected (Not Detect); Coronavirus HKU1 Not Detected (Not Detect); Coronavirus NL63 Not Detected (Not Detect); Coronavirus OC43 Not Detected (Not Detect); Human Metapneumovirus Not Detected (Not Detect); Human Rhinovirus/Enterovirus Not Detected (Not Detect); Influenza A Subtype 2009 H1 Not Detected (Not Detect); Influenza A Untypeable Not Detected (Not Detect); Influenza B Not Detected (Not Detect); Mycoplasma pneumoniae Not Detected (Not Detect); Parainfluenza Virus 1 Not Detected (Not Detect); Parainfluenza Virus 2 Not Detected (Not Detect); Parainfluenza Virus 3 Not Detected (Not Detect); Parainfluenza Virus 4 Not Detected (Not Detect); Respiratory Syncytial Virus Not Detected (Not Detect)
--- NOTE | 2017-08-06 17:48 | Electrocardiograph Report ---
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
[2017-08-06] MEDS ORDERED: *HR* OxyCODONE/APAP 10/325 TABLET PO PRN (18:40)
[2017-08-06] MEDS: *HR* HYDROmorphone (PF) 1 MG/ML SYRINGE IVP PRN ×2 (19:11→22:54)
[2017-08-06] MEDS ORDERED: Colchicine 0.6 MG TABLET PO SCH (21:00)
[2017-08-06] MEDS: *HR* OxyCODONE/APAP 5/325 TABLET PO PRN (22:54)
[2017-08-07 02:51] LABS: Basophils % 0.2 %; Eosinophils # 0.1 K/mcL (0.0-0.6); Eosinophils % 0.6 %; Hematocrit 27.3 % (37.5-50.1); Hemoglobin 8.8 g/dL (12.9-16.9); Immature Granulocytes % 1.2 % (0-4); Immature Platelets 2.8 % (1.1-6.1); Lymphocytes # 2.2 K/mcL (0.6-4.6); Lymphocytes % 15.5 %; Mean Corpuscular HGB Conc 32.2 g/dL (31.6-35.5); Mean Corpuscular Hemoglobin 29.7 pg (28.0-33.3); Mean Corpuscular Volume 92.2 fL (83.0-100.0); Mean Platelet Volume 9.8 fL (9.4-12.4); Monocytes # 1.9 K/mcL (0.0-1.3); Monocytes % 13.5 %; Neutrophils # 9.8 K/mcL (1.6-8.9); Platelet Count 542 K/mcL (140-400); Red Blood Count 2.96 M/mcL (4.19-5.50); Red Cell Distribution Width 13.3 % (11.5-14.5)
[2017-08-07 03:33] LABS: BUN/Creatinine Ratio 19 (6-26); Blood Urea Nitrogen 13 mg/dL (8-26); Calcium 8.2 mg/dL (8.6-10.8); Carbon Dioxide 28 mEq/L (19-29); Chloride 105 mEq/L (98-109); Glucose 119 mg/dL (70-99); Magnesium 1.9 mg/dL (1.6-2.6); Osmolality,Calculated 289 (280-300); Potassium 3.9 mEq/L (3.5-4.5); Sodium 139 mEq/L (136-145); eGFR For African Americans > 60 (> 60); eGFR For Non-African Americans > 60 (> 60)
[2017-08-07] MEDS: Aztreonam 2,000 MG in Water for inj. (sterile) 20 ML IVP SCH ×3 (05:00→23:28)
[2017-08-07] MEDS: *HR* Heparin 5,000 UNIT/ML VIAL SQ SCH ×2 (05:01→17:51)
[2017-08-07] MEDS: Metoclopramide 10 MG/2 ML VIAL IVP SCH (05:01)
[2017-08-07] MEDS: *HR* OxyCODONE/APAP 5/325 TABLET PO PRN (05:01)
[2017-08-07] MEDS: niCARdipine 40 MG/200 ML MLS IVC SCH (05:02)
--- NOTE | 2017-08-07 07:46 | Pulmonology Progress Note ---
<LesviaGrant W - Last Filed: 08/07/17 10:13> Date of Encounter: 08/07/17 Objective PUL Vital signs: Last Vital Signs Temp 98.0 F 08/07/17 07:10 Pulse 95 08/07/17 08:56 Resp 21 08/07/17 08:56 BP 117/71 08/07/17 08:56 Pulse Ox 95 08/07/17 08:56 Results - Laboratory Findings CBC and BMP: 08/07/17 02:26 08/07/17 02:26 ABG ABG pH 7.39 pH Units (7.32-7.45) 08/06/17 04:15 ABG pCO2 41 mmHg (35-45) 08/06/17 04:15 ABG pO2 70 mmHg (85-104) L 08/06/17 04:15 ABG O2 Saturation 94 % (95-98) L 08/06/17 04:15 PT/INR, D-dimer PT 16.3 Seconds (9.4-12.1) H 08/06/17 04:23 Abnormal lab findings: Abnormal lab results WBC 14.1 K/mcL (4.3-11.1) H 08/07/17 02:26 RBC 2.96 M/mcL (4.19-5.50) L 08/07/17 02:26 Hgb 8.8 g/dL (12.9-16.9) L 08/07/17 02:26 Hct 27.3 % (37.5-50.1) L 08/07/17 02:26 Plt Count 542 K/mcL (140-400) H 08/07/17 02:26 Neutrophils # 9.8 K/mcL (1.6-8.9) H 08/07/17 02:26 Monocytes # 1.9 K/mcL (0.0-1.3) H 08/07/17 02:26 Hypersegmented Neuts Present (Not Present) A 08/05/17 15:26 Toxic Granulation Present (Not Present) A 08/05/17 15:26 ESR 82 mm/hr (0-10) H 08/06/17 11:00 PT 16.3 Seconds (9.4-12.1) H 08/06/17 04:23 ABG pO2 70 mmHg (85-104) L 08/06/17 04:15 ABG O2 Saturation 94 % (95-98) L 08/06/17 04:15 Creatinine 0.67 mg/dL (0.72-1.25) L 08/07/17 02:26 Glucose 119 mg/dL (70-99) H 08/07/17 02:26 POC Glucose 139 (58-89) H 08/05/17 14:37 Calcium 8.2 mg/dL (8.6-10.8) L 08/07/17 02:26 C-Reactive Protein 253 mg/L (Less than 5) H 08/06/17 11:00 Serum Total Protein 5.9 g/dL (6.0-8.3) L 08/05/17 15:26 HDL Cholesterol 22 mg/dL (40-59) L 08/05/17 15:26 Ur Squamous Epith Cells Moderate per lpf (None-Few) H 08/05/17 18:30 Pericard Tot Nuc Cells 2954 TNC/mcL (0-1000) H 08/05/17 13:25 U Benzodiazepines Scrn Positive ng/mL (Qkdnfc=012) H 08/06/17 15:10 Rheumatoid Factor 52 IU/mL (0-29) H 08/06/17 11:00 - Microbiology Findings Microbiology Findings: Microbiology, Last 48 Hours 08/05/17 13:25 Body Fluid Culture - Preliminary Pericardial Fluid - Clinical Findings Intake & Output: Intake & Output 08/06/17 08/07/17 08/07/17 23:59 07:59 15:59 Intake Total 165 / 165 Output Total 770 / 770 173 / 173 20 / 20 Balance -605 / -605 -173 / -173 -20 / -20 Consult Discharge Plan - Plan Referrals: NONE,PCP [Primary Care Provider] - - Attending Attestation I examined this patient and my medical decision-making was reviewed with the Resident Physician. I agree with the documented findings, disposition and treatment plan as described except to the extent set forth below. We independently had [id number] contact with the patient Patient seen and examined at bedside Labs, radiology, chart personally reviewed. Management was reviewed during multidisciplinary critical care rounds. 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 cont NSAIDS and Colchicine. Pericardial drain mngt per CTS. FEN-GI: ADAT cont PPI Renal: UOP and Renal Function scheduled. ID: remains on antimicrobials with plan to stop Heme/Onc:DVT prophylaxis given Endo: Glucose Monitored Integ/MSK: Skin Care per routine ICU Nursing Protocol to prevent ulcers. Lines: All lines examined without evidence of infection : Dispo: Stable for transfer to [facility] for on going care. CODE: Full <Haris Ibrahim - Last Filed: 08/07/17 15:34> Date of Encounter: 08/07/17 Time of Encounter: 07:45 Assessment and Plan (1) Acute respiratory failure with hypoxia Current Visit: Yes Status: Acute Resolved. Patient was successfully liberated from the ventilator yesterday. He is stable from a respiratory standpoint on room air. (2) Pericardial effusion with cardiac tamponade Current Visit: Yes Status: Acute Patient presented with acute onset chest pain and shortness of breath that had been present for 3 days and gradually worsening. Patient was found to have a large pericardial effusion with cardiac tamponade. He was taken emergently to the OR for pericardial window and drainage of the fluid. This point the cause is unclear. Fluid has been sent to the lab for cell count, culture, chemistry testing, cytology, flow cytometry. Most likely causes this time remain viral as well as possible underlying rheumatologic disorders including lupus. Serologic testing including TARA, rheumatoid factor, ESR/CRP pending. (3) Atrial fibrillation with RVR Current Visit: Yes Status: Acute Patient presented with A. fib with RVR. Secondary to tamponade as discussed above. postoperatively this has resolved currently in normal sinus rhythm. Patient was initiated on amiodarone and heparin but this has been discontinued. (4) Leukocytosis Current Visit: Yes Status: Acute Much improved. Likely related to stress of his critical illness. Cultures have been negative, antibiotics have been stopped. Qualifiers: Leukocytosis type: unspecified Qualified Code(s): D72.829 - Elevated white blood cell count, unspecified (5) History of cholecystectomy Current Visit: Yes Status: Acute Subjective Principal diagnosis: Cardiac tamponade Interval history: Patient seen and examined at bedside. Patient reports mild chest pain. Otherwise he has no complaints. He denies fever chills, abdominal pain. Objective PUL Vital signs: Last Vital Signs Temp 97.9 F 08/07/17 03:27 Pulse 82 08/07/17 06:00 Resp 20 08/07/17 06:00 BP 107/67 08/07/17 06:00 Pulse Ox 94 08/07/17 06:00 General appearance: no acute distress ENT: oropharynx moist Auscultation: bilateral: diminished breath sounds Cardiovascular: regular rate and rhythm, other (2 chest tube present) Gastrointestinal: normoactive bowel sounds, soft, non-tender, non-distended Extremities: no cyanosis, no clubbing, edema (trace) normal mental status, non-focal exam Results - Laboratory Findings CBC and BMP: 08/07/17 02:26 08/07/17 02:26 ABG ABG pH 7.39 pH Units (7.32-7.45) 08/06/17 04:15 ABG pCO2 41 mmHg (35-45) 08/06/17 04:15 ABG pO2 70 mmHg (85-104) L 08/06/17 04:15 ABG O2 Saturation 94 % (95-98) L 08/06/17 04:15 PT/INR, D-dimer PT 16.3 Seconds (9.4-12.1) H 08/06/17 04:23 Abnormal lab findings: Abnormal lab results WBC 14.1 K/mcL (4.3-11.1) H 08/07/17 02:26 RBC 2.96 M/mcL (4.19-5.50) L 08/07/17 02:26 Hgb 8.8 g/dL (12.9-16.9) L 08/07/17 02:26 Hct 27.3 % (37.5-50.1) L 08/07/17 02:26 Plt Count 542 K/mcL (140-400) H 08/07/17 02:26 Neutrophils # 9.8 K/mcL (1.6-8.9) H 08/07/17 02:26 Monocytes # 1.9 K/mcL (0.0-1.3) H 08/07/17 02:26 Hypersegmented Neuts Present (Not Present) A 08/05/17 15:26 Toxic Granulation Present (Not Present) A 08/05/17 15:26 ESR 82 mm/hr (0-10) H 08/06/17 11:00 PT 16.3 Seconds (9.4-12.1) H 08/06/17 04:23 ABG pO2 70 mmHg (85-104) L 08/06/17 04:15 ABG O2 Saturation 94 % (95-98) L 08/06/17 04:15 Creatinine 0.67 mg/dL (0.72-1.25) L 08/07/17 02:26 Glucose 119 mg/dL (70-99) H 08/07/17 02:26 POC Glucose 139 (58-89) H 08/05/17 14:37 Calcium 8.2 mg/dL (8.6-10.8) L 08/07/17 02:26 C-Reactive Protein 253 mg/L (Less than 5) H 08/06/17 11:00 Serum Total Protein 5.9 g/dL (6.0-8.3) L 08/05/17 15:26 HDL Cholesterol 22 mg/dL (40-59) L 08/05/17 15:26 Ur Squamous Epith Cells Moderate per lpf (None-Few) H 08/05/17 18:30 Pericard Tot Nuc Cells 2954 TNC/mcL (0-1000) H 08/05/17 13:25 U Benzodiazepines Scrn Positive ng/mL (Itwcad=238) H 08/06/17 15:10 Rheumatoid Factor 52 IU/mL (0-29) H 08/06/17 11:00 - Microbiology Findings Microbiology Findings: Microbiology, Last 48 Hours 08/05/17 13:25 Body Fluid Culture - Preliminary Pericardial Fluid - Clinical Findings Intake & Output: Intake & Output 08/06/17 08/06/17 08/07/17 15:59 23:59 07:59 Intake Total 428 / 428 165 / 165 Output Total 2790 / 2790 770 / 770 73 / 73 Balance -2362 / -2362 -605 / -605 -73 / -73 - VTE Documentation of Mechanical Device: Intermittent pneumatic compression device
[2017-08-07] MEDS ORDERED: Ondansetron 4 MG/2 ML VIAL IVP PRN (08:02)
[2017-08-07] MEDS ORDERED: Naloxone 0.4 MG/ML INJ IVP PRN (08:02)
[2017-08-07] MEDS ORDERED: Acetaminophen 325 MG TABLET PO PRN (08:02)
[2017-08-07] MEDS ORDERED: *HR* Dextrose 50 % in Water (Syg) 50 ML SYRINGE IVP PRN (08:02)
--- NOTE | 2017-08-07 08:08 | Cardiothoracic Progress Note ---
Date of Encounter: 08/07/17 Time of Encounter: 08:05 - Assessment and plan (1) Pericardial effusion Current Visit: Yes Status: Acute The patient remained stable overnight. He was extubated last evening and is breathing comfortably. He remains in normal sinus rhythm. The pleural fluid culture and cytology are pending at this time. Chest tubes remained in place for at least 2-3 more days. The assessment and plan as outlined above was discussed with the patient and/or family members who expressed understanding and agreement. All questions were answered. - Subjective Procedure(s) Performed: POD#2 Median sternotomy with anterior pericardial resection Interval history: The patient remained hemodynamically stable overnight. He was extubated last evening and is breathing comfortably. He has remained in normal sinus rhythm. Vital Signs, Last 4 Hours Pulse Resp BP Pulse Ox 08/07/17 06:00 82 20 107/67 94 08/07/17 05:15 20 94 08/07/17 05:00 84 19 104/66 95 Oxgyen Flow Rate Oxygen Flow Rate (LPM) 4 Clinical Data, last 8 Hours Output, Chest Tube Drainage 3 Amount [#2] Output, Chest Tube Drainage 20 Amount [#1] - Physical Examination General: Conversant, No Apparent Distress Neck: No JVD, Normal carotid pulses Cardiac: Reg Rate and Rhythm, Normal S1 and S2, No Murmur Incision: No signs of infection, Dry/intact dressing Sternum: Stable Chest tubes: Minimal drainage, Other (No air leak.) Lungs: Normal Breath Sounds, No Wheeze, Rales, Rhonchi Neuro: Alert and responsive, No focal deficits noted Vascular: Normal capillary refill Extremities: No Clubbing, No Cyanosis, No Edema, Normal Pulses - Labs 08/07/17 02:26 08/07/17 02:26 Lab Results, Last 24 hours 08/07/17 08/07/17 02:26 02:26 WBC 14.1 H Hgb 8.8 L Hct 27.3 L Plt Count 542 H Sodium 139 Potassium 3.9 Chloride 105 Carbon Dioxide 28 BUN 13 Creatinine 0.67 L Glucose 119 H Calcium 8.2 L Magnesium 1.9 - VTE Documentation of Mechanical Device: Intermittent pneumatic compression device Consult Discharge Plan - Plan Referrals: NONE,PCP [Primary Care Provider] -
[2017-08-07] MEDS: Pantoprazole 40 MG VIAL IVP SCH (08:49)
[2017-08-07] MEDS: *HR* OxyCODONE/APAP 10/325 TABLET PO PRN ×3 (08:50→19:40)
[2017-08-07] MEDS: Colchicine 0.6 MG TABLET PO SCH ×2 (08:50→21:17)
[2017-08-07] MEDS: Ibuprofen 600 MG TABLET PO SCH ×2 (11:24→21:17)
[2017-08-07] MEDS: *HR* HYDROmorphone (PF) 1 MG/ML SYRINGE IVP PRN ×4 (11:24→23:29)
--- NOTE | 2017-08-07 17:00 | Event Note ---
Date of Encounter: 08/07/17 Time of Encounter: 16:57 Sign out was provided to the admitting hospitalist, Dr. Sutton, who accepted the patient for transfer.
[2017-08-08] MEDS: *HR* OxyCODONE/APAP 10/325 TABLET PO PRN ×4 (00:57→17:51)
[2017-08-08] MEDS: *HR* HYDROmorphone (PF) 1 MG/ML SYRINGE IVP PRN ×4 (03:23→20:42)
[2017-08-08 06:24] LABS: Basophils # 0.1 K/mcL (0.0-0.2); Basophils % 0.5 %; Eosinophils # 0.4 K/mcL (0.0-0.6); Eosinophils % 4.3 %; Hematocrit 30.3 % (37.5-50.1); Hemoglobin 9.8 g/dL (12.9-16.9); Immature Granulocytes % 0.9 % (0-4); Immature Platelets 2.3 % (1.1-6.1); Lymphocytes # 2.9 K/mcL (0.6-4.6); Lymphocytes % 28.3 %; Mean Corpuscular HGB Conc 32.3 g/dL (31.6-35.5); Mean Corpuscular Hemoglobin 29.6 pg (28.0-33.3); Mean Corpuscular Volume 91.5 fL (83.0-100.0); Mean Platelet Volume 9.7 fL (9.4-12.4); Monocytes # 1.2 K/mcL (0.0-1.3); Monocytes % 12.1 %; Platelet Count 573 K/mcL (140-400); Red Blood Count 3.31 M/mcL (4.19-5.50); Red Cell Distribution Width 13.4 % (11.5-14.5); Segmented Neutrophils % 53.9 %
[2017-08-08 06:26] LABS: Neutrophils # 5.4 K/mcL (1.6-8.9)
[2017-08-08 06:39] LABS: BUN/Creatinine Ratio 17 (6-26); Blood Urea Nitrogen 11 mg/dL (8-26); Calcium 8.5 mg/dL (8.6-10.8); Carbon Dioxide 23 mEq/L (19-29); Chloride 107 mEq/L (98-109); Glucose 93 mg/dL (70-99); Magnesium 1.8 mg/dL (1.6-2.6); Osmolality,Calculated 291 (280-300); Sodium 141 mEq/L (136-145); eGFR For African Americans > 60 (> 60); eGFR For Non-African Americans > 60 (> 60)
[2017-08-08] MEDS: *HR* Heparin 5,000 UNIT/ML VIAL SQ SCH ×2 (07:01→17:52)
[2017-08-08] MEDS: Ibuprofen 600 MG TABLET PO SCH ×3 (07:01→20:43)
[2017-08-08] MEDS: Pantoprazole 40 MG VIAL IVP SCH (09:19)
[2017-08-08] MEDS: Colchicine 0.6 MG TABLET PO SCH ×2 (09:19→20:43)
[2017-08-08] MEDS: Aztreonam 2,000 MG in Water for inj. (sterile) 20 ML IVP SCH ×3 (09:19→20:42)
--- NOTE | 2017-08-08 10:37 | Cardiothoracic Progress Note ---
Date of Encounter: 08/08/17 Time of Encounter: 10:35 - Assessment and plan (1) Pericardial effusion Current Visit: Yes Status: Acute The patient remained stable overnight. He has been walking in the room without difficulty. He is breathing comfortably. He remains in normal sinus rhythm. 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 The chest tubes will remain in place and on suction for at least 2-3 more days. The assessment and plan as outlined above was discussed with the patient and/or family members who expressed understanding and agreement. All questions were answered. - Subjective Procedure(s) Performed: POD#3 S/P Median sternotomy with anterior pericardial resection Interval history: The patient remained hemodynamically stable overnight. He was extubated last evening and is breathing comfortably. He has remained in normal sinus rhythm. Vital Signs, Last 4 Hours Temp Pulse Resp BP Pulse Ox 08/08/17 09:30 86 08/08/17 07:59 16 97 08/08/17 07:30 98.0 F 89 16 116/85 97 Oxgyen Flow Rate Oxygen Flow Rate (LPM) 2 Clinical Data, last 8 Hours Output, Chest Tube Drainage 20 Amount [#2] Output, Chest Tube Drainage 5 Amount [#2] Output, Chest Tube Drainage 20 Amount [#1] Output, Chest Tube Drainage 30 Amount [#1] Output, Urine Amount 0 - Physical Examination General: Conversant, No Apparent Distress Neck: No JVD, Normal carotid pulses Cardiac: Reg Rate and Rhythm, Normal S1 and S2, No Murmur Incision: No signs of infection, Dry/intact dressing Sternum: Stable Chest tubes: Minimal drainage, Other (No air leak.) Lungs: Normal Breath Sounds, No Wheeze, Rales, Rhonchi Neuro: Alert and responsive, No focal deficits noted Vascular: Normal capillary refill Extremities: No Clubbing, No Cyanosis, No Edema, Normal Pulses - Labs 08/08/17 06:03 08/08/17 06:03 Lab Results, Last 24 hours 08/08/17 08/08/17 06:03 06:03 WBC 10.1 Hgb 9.8 L Hct 30.3 L Plt Count 573 H Sodium 141 Potassium 4.0 Chloride 107 Carbon Dioxide 23 BUN 11 Creatinine 0.63 L Glucose 93 Calcium 8.5 L Magnesium 1.8 - VTE Documentation of Mechanical Device: Intermittent pneumatic compression device Consult Discharge Plan - Plan Referrals: NONE,PCP [Primary Care Provider] -
[2017-08-08 11:14] LABS: ANA IgG by ELISA NONE DETECTED (None Detected)
--- NOTE | 2017-08-08 15:21 | Internal Med Progress Note ---
Date of Encounter: 08/08/17 Time of Encounter: 12:40 - Assessment and plan (1) Pericardial effusion with cardiac tamponade Current Visit: Yes Status: Acute Assessment and plan: Admitted with acute unexplained pericardial effusion and cardiac tamponade, status post emergent pericardial window. Chest tube management and local wound care per cardiothoracic surgery. Noted to have thrombocytosis, which is likely reactive. Improved leukocytosis. Continue pain control with when necessary IV Dilaudid and oral Percocet. Encourage ambulation, incentive spirometry. Pericardial fluid Gram stain and culture negative, AFB smears negative. We will discontinue antibiotics. 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 Rheumatoid factor slightly elevated at 52. (2) Atrial fibrillation with RVR Current Visit: Yes Status: Resolved Assessment and plan: Had episodes of atrial fibrillation likely related to pericarditis and pericardial window. Continue telemetry, no further episodes at this time. (3) Acute respiratory failure with hypoxia Current Visit: Yes Status: Resolved Assessment and plan: Related to pericarditis. Status post intubation and successful extubation. Continue supplemental oxygen, wean down FiO2 as tolerated. - Subjective Interval history: Reports pain at surgical site intermittently; able to ambulate in the hallways when his pain is controlled; chest tubes continue to drain bloody fluid; no fever/chills, nausea, vomiting; - Constitutional Vitals: Temp Pulse Resp BP Pulse Ox 98.2 F 78 16 116/72 94 08/08/17 11:38 08/08/17 13:35 08/08/17 11:38 08/08/17 11:38 08/08/17 11:38 General appearance: Present: A&O X 3, morbidly obese, answers questions appropriately - Respiratory Respiratory exam: Present: CTAB. Absent: accessory muscle use, rales, rhonchi, wheezes Additional comments: midline chest surgical incision with dry dressing; chest tubes in place - Cardiovascular Cardiovascular exam: Present: RRR, +S1, +S2. Absent: diastolic murmur, gallop, rubs, systolic murmur - GI/Abdominal GI/Abdominal exam: Present: normal bowel sounds, soft, no peritoneal signs. Absent: distended, tenderness - Extremities Exam Extremities exam: Present: full ROM, warm, radial pulses palpable and symmetrical. Absent: calf tenderness, cyanotic, pedal edema Internal Medicine: Result - Labs CBC & Chem 7: 08/09/17 05:50 08/09/17 05:50 Labs: Short CBC 08/08/17 Range/Units 06:03 WBC 10.1 (4.3-11.1) K/mcL Hgb 9.8 L (12.9-16.9) g/dL Hct 30.3 L (37.5-50.1) % Plt Count 573 H (140-400) K/mcL Neutrophils # 5.4 (1.6-8.9) K/mcL BMP 08/08/17 06:03 Sodium 141 Potassium 4.0 Chloride 107 Carbon Dioxide 23 BUN 11 Creatinine 0.63 L Glucose 93 Calcium 8.5 L - ABG Interpretation ABG results: ABG ABG pH 7.39 pH Units (7.32-7.45) 08/06/17 04:15 ABG pCO2 41 mmHg (35-45) 08/06/17 04:15 ABG pO2 70 mmHg (85-104) L 08/06/17 04:15 ABG O2 Saturation 94 % (95-98) L 08/06/17 04:15 PT/INR, D-dimer PT 16.3 Seconds (9.4-12.1) H 08/06/17 04:23 - VTE Documentation of Mechanical Device: Intermittent pneumatic compression device Consult Discharge Plan - Plan Referrals: NONE,PCP [Primary Care Provider] -
[2017-08-09] MEDS: *HR* HYDROmorphone (PF) 1 MG/ML SYRINGE IVP PRN ×4 (02:45→18:18)
[2017-08-09] MEDS: Ibuprofen 600 MG TABLET PO SCH ×3 (04:33→20:48)
[2017-08-09] MEDS: *HR* OxyCODONE/APAP 10/325 TABLET PO PRN ×4 (04:33→20:48)
[2017-08-09] MEDS: Aztreonam 2,000 MG in Water for inj. (sterile) 20 ML IVP SCH ×3 (04:43→20:48)
[2017-08-09] MEDS: *HR* Heparin 5,000 UNIT/ML VIAL SQ SCH ×2 (04:44→18:18)
[2017-08-09 06:31] LABS: Basophils # 0.1 K/mcL (0.0-0.2); Basophils % 0.6 %; Eosinophils # 0.6 K/mcL (0.0-0.6); Eosinophils % 7.2 %; Hematocrit 29.6 % (37.5-50.1); Hemoglobin 9.5 g/dL (12.9-16.9); Immature Granulocytes % 1.1 % (0-4); Lymphocytes # 2.4 K/mcL (0.6-4.6); Lymphocytes % 28.7 %; Mean Corpuscular HGB Conc 32.1 g/dL (31.6-35.5); Mean Corpuscular Hemoglobin 29.4 pg (28.0-33.3); Mean Corpuscular Volume 91.6 fL (83.0-100.0); Mean Platelet Volume 9.6 fL (9.4-12.4); Monocytes # 0.9 K/mcL (0.0-1.3); Monocytes % 11.1 %; Neutrophils # 4.3 K/mcL (1.6-8.9); Nucleated Red Blood Cells 0.2 /100 WBC (0); Platelet Count 574 K/mcL (140-400); Red Blood Count 3.23 M/mcL (4.19-5.50); Red Cell Distribution Width 13.2 % (11.5-14.5); Segmented Neutrophils % 51.3 %
[2017-08-09 06:49] LABS: BUN/Creatinine Ratio 13 (6-26); Blood Urea Nitrogen 8 mg/dL (8-26); Calcium 8.6 mg/dL (8.6-10.8); Carbon Dioxide 28 mEq/L (19-29); Chloride 105 mEq/L (98-109); Glucose 95 mg/dL (70-99); Magnesium 1.6 mg/dL (1.6-2.6); Osmolality,Calculated 292 (280-300); Potassium 3.9 mEq/L (3.5-4.5); Sodium 142 mEq/L (136-145); eGFR For African Americans > 60 (> 60); eGFR For Non-African Americans > 60 (> 60)
[2017-08-09] MEDS: Pantoprazole 40 MG VIAL IVP SCH (08:04)
[2017-08-09] MEDS: Colchicine 0.6 MG TABLET PO SCH ×2 (08:04→20:48)
--- NOTE | 2017-08-09 08:44 | Cardiothoracic Progress Note ---
Date of Encounter: 08/09/17 Time of Encounter: 08:42 - Assessment and plan (1) Pericardial effusion Current Visit: Yes Status: Acute The patient remained stable overnight. He is walking in the hallways without difficulty. He is breathing comfortably. He remains in normal sinus rhythm. 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 The chest tubes will remain in place until tomorrow. The assessment and plan as outlined above was discussed with the patient and/or family members who expressed understanding and agreement. All questions were answered. - Subjective Procedure(s) Performed: POD#4 S/P Median sternotomy with anterior pericardial resection Interval history: The patient remained hemodynamically stable overnight. He is sitting in a chair at the bedside. He is ambulating the hallways without difficulty. He has no complaints. Oxgyen Flow Rate Oxygen Flow Rate (LPM) 2 Clinical Data, last 8 Hours Output, Chest Tube Drainage 20 Amount [#2] Output, Chest Tube Drainage 0 Amount [#2] Output, Chest Tube Drainage 10 Amount [#1] Output, Chest Tube Drainage 0 Amount [#1] Output, Urine Amount 400 Output, Urine Amount 625 Output, Urine Amount 500 Weight 08/07/17 08/08/17 08/09/17 23:59 23:59 23:59 Weight 132.1 kg - Physical Examination General: Conversant, No Apparent Distress Neck: No JVD, Normal carotid pulses Cardiac: Reg Rate and Rhythm, Normal S1 and S2, No Murmur Incision: No signs of infection, Dry/intact dressing Sternum: Stable Chest tubes: Minimal drainage, Other (No air leak.) Lungs: Normal Breath Sounds, No Wheeze, Rales, Rhonchi Neuro: Alert and responsive, No focal deficits noted Vascular: Normal capillary refill Musculoskeletal: No Chest Wall Tenderness Extremities: No Clubbing, No Cyanosis, No Edema, Normal Pulses - Labs 08/09/17 05:50 08/09/17 05:50 Lab Results, Last 24 hours 08/09/17 08/09/17 05:50 05:50 WBC 8.4 Hgb 9.5 L Hct 29.6 L Plt Count 574 H Sodium 142 Potassium 3.9 Chloride 105 Carbon Dioxide 28 BUN 8 Creatinine 0.63 L Glucose 95 Calcium 8.6 Magnesium 1.6 - VTE Documentation of Mechanical Device: Intermittent pneumatic compression device Consult Discharge Plan - Plan Referrals: NONE,PCP [Primary Care Provider] -
[2017-08-09 09:34] LABS: Complement Component 3 85 mg/dL (88-201)
[2017-08-09 09:35] LABS: Complement Component 4 16 mg/dL (10-40)
--- NOTE | 2017-08-09 11:56 | Internal Med Progress Note ---
Date of Encounter: 08/09/17 Time of Encounter: 11:55 - Assessment and plan (1) Atrial fibrillation with RVR Current Visit: Yes Status: Resolved (2) Pericardial effusion with cardiac tamponade Current Visit: Yes Status: Acute Assessment and plan: Admitted with acute unexplained pericardial effusion and cardiac tamponade, status post emergent pericardial window. Chest tube management and local wound care per cardiothoracic surgery. Noted to have thrombocytosis, which is likely reactive. Continue pain control with when necessary IV Dilaudid and oral Percocet. Encourage ambulation, incentive spirometry. Pericardial fluid Gram stain and culture negative, AFB smears negative. Off antibiotics. 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 Rheumatoid factor slightly elevated at 52. Complement C4 low; will d/w Rheumatology; (3) Acute respiratory failure with hypoxia Current Visit: Yes Status: Resolved - Subjective Interval history: Ambulates in hallways; chest tubes in place; improving chest pain but still requires IV pain meds; no constipation, dyspnea; using incentive spirometer; - Constitutional Vitals: Temp Pulse Resp BP Pulse Ox 98.5 F 85 18 128/83 95 08/09/17 07:55 08/09/17 07:55 08/09/17 11:06 08/09/17 07:55 08/09/17 11:06 General appearance: Present: A&O X 3, morbidly obese, answers questions appropriately - Respiratory Respiratory exam: Present: decreased breath sounds (at B/L bases), CTAB. Absent : accessory muscle use, rales, rhonchi, wheezes - Cardiovascular Cardiovascular exam: Present: RRR, +S1, +S2. Absent: diastolic murmur, gallop, rubs, systolic murmur - GI/Abdominal GI/Abdominal exam: Present: normal bowel sounds, soft (obese), no peritoneal signs. Absent: distended, tenderness - Extremities Exam Extremities exam: Present: full ROM, warm, radial pulses palpable and symmetrical. Absent: calf tenderness, cyanotic, pedal edema Internal Medicine: Result - Labs CBC & Chem 7: 08/10/17 02:37 08/10/17 02:37 Labs: Short CBC 08/09/17 Range/Units 05:50 WBC 8.4 (4.3-11.1) K/mcL Hgb 9.5 L (12.9-16.9) g/dL Hct 29.6 L (37.5-50.1) % Plt Count 574 H (140-400) K/mcL Neutrophils # 4.3 (1.6-8.9) K/mcL BMP 08/09/17 05:50 Sodium 142 Potassium 3.9 Chloride 105 Carbon Dioxide 28 BUN 8 Creatinine 0.63 L Glucose 95 Calcium 8.6 - ABG Interpretation ABG results: ABG ABG pH 7.39 pH Units (7.32-7.45) 08/06/17 04:15 ABG pCO2 41 mmHg (35-45) 08/06/17 04:15 ABG pO2 70 mmHg (85-104) L 08/06/17 04:15 ABG O2 Saturation 94 % (95-98) L 08/06/17 04:15 PT/INR, D-dimer PT 16.3 Seconds (9.4-12.1) H 08/06/17 04:23 - VTE Documentation of Mechanical Device: Intermittent pneumatic compression device Consult Discharge Plan - Plan Referrals: Caroline Tolliver CNP [Partnered Physician] - 08/24/17 9:00 am (PLEASE TAKE THE NEW PATIENT PACKET WITH YOU FILLED OUT TO YOUR APPOINTMENT. TAKE PICTURE ID, INSURANCE CARD, ALL MEDICATIONS IN THE BOTTLES TO YOUR APPOINTMENT. SHOW UP 15 MINUTES EARLY. IF YOU HAVE TO CANCEL PLEASE CALL [phone] TO CANCEL WITHIN 24 HOURS OF YOUR APPOINTMENT) Grayson Calderon MD [Partnered Physician] - 08/27/17 1:40 pm Maurice Turner DO [Partnered Physician] - 08/17/17 11:45 am
[2017-08-10] MEDS: *HR* HYDROmorphone (PF) 1 MG/ML SYRINGE IVP PRN ×5 (00:36→19:36)
[2017-08-10 03:00] LABS: Basophils # 0.1 K/mcL (0.0-0.2); Basophils % 0.8 %; Eosinophils # 0.8 K/mcL (0.0-0.6); Eosinophils % 10.2 %; Hematocrit 33.8 % (37.5-50.1); Hemoglobin 10.8 g/dL (12.9-16.9); Immature Granulocytes % 2.3 % (0-4); Immature Platelets 1.6 % (1.1-6.1); Lymphocytes # 2.5 K/mcL (0.6-4.6); Lymphocytes % 31.7 %; Mean Corpuscular Hemoglobin 29.3 pg (28.0-33.3); Mean Corpuscular Volume 91.6 fL (83.0-100.0); Mean Platelet Volume 9.5 fL (9.4-12.4); Monocytes # 0.8 K/mcL (0.0-1.3); Monocytes % 10.7 %; Neutrophils # 3.5 K/mcL (1.6-8.9); Platelet Count 579 K/mcL (140-400); Red Blood Count 3.69 M/mcL (4.19-5.50); Red Cell Distribution Width 13.2 % (11.5-14.5); Segmented Neutrophils % 44.3 %
[2017-08-10 03:13] LABS: BUN/Creatinine Ratio 13 (6-26); Blood Urea Nitrogen 9 mg/dL (8-26); Calcium 8.6 mg/dL (8.6-10.8); Carbon Dioxide 26 mEq/L (19-29); Chloride 105 mEq/L (98-109); Glucose 125 mg/dL (70-99); Magnesium 1.6 mg/dL (1.6-2.6); Osmolality,Calculated 288 (280-300); Potassium 3.6 mEq/L (3.5-4.5); Sodium 139 mEq/L (136-145); eGFR For African Americans > 60 (> 60); eGFR For Non-African Americans > 60 (> 60)
[2017-08-10] MEDS: Ibuprofen 600 MG TABLET PO SCH ×3 (03:24→21:41)
[2017-08-10] MEDS: *HR* OxyCODONE/APAP 10/325 TABLET PO PRN ×4 (03:24→21:41)
[2017-08-10] MEDS: *HR* Heparin 5,000 UNIT/ML VIAL SQ SCH ×2 (06:31→16:59)
[2017-08-10] MEDS: Colchicine 0.6 MG TABLET PO SCH ×2 (08:48→21:41)
[2017-08-10] MEDS: Pantoprazole 40 MG VIAL IVP SCH (08:49)
--- NOTE | 2017-08-10 09:15 | Cardiothoracic Progress Note ---
Date of Encounter: 08/10/17 Time of Encounter: 09:13 - Assessment and plan (1) Pericardial effusion Current Visit: Yes Status: Acute The patient remained stable overnight. He is walking in the hallways without difficulty. He is breathing comfortably. He remains in normal sinus rhythm. 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 The chest tubes were removed. The patient may be discharged home at the discretion of the hospitalist. The assessment and plan as outlined above was discussed with the patient and/or family members who expressed understanding and agreement. All questions were answered. - Subjective Procedure(s) Performed: POD#5 S/P Median sternotomy with anterior pericardial resection Interval history: The patient remained hemodynamically stable overnight. He is sitting in a chair at the bedside. He is ambulating the hallways without difficulty. He has no complaints. Vital Signs, Last 4 Hours Temp Pulse Resp BP Pulse Ox 08/10/17 08:43 14 95 08/10/17 07:19 97.7 F 84 14 136/81 94 Oxgyen Flow Rate Oxygen Flow Rate (LPM) 2 Clinical Data, last 8 Hours Output, Chest Tube Drainage 5 Amount [#2] Output, Chest Tube Drainage 0 Amount [#1] Output, Urine Amount 1,400 Weight 08/08/17 08/09/17 08/10/17 23:59 23:59 23:59 Weight 132.1 kg 133.5 kg - Physical Examination General: Conversant, No Apparent Distress Neck: No JVD, Normal carotid pulses Cardiac: Reg Rate and Rhythm, Normal S1 and S2, No Murmur Incision: No signs of infection, Dry/intact dressing Sternum: Stable Chest tubes: Minimal drainage, Other (No air leak.) Lungs: Normal Breath Sounds, No Wheeze, Rales, Rhonchi Neuro: Alert and responsive, No focal deficits noted Vascular: Normal capillary refill Extremities: No Clubbing, No Cyanosis, No Edema, Normal Pulses - Labs 08/10/17 02:37 08/10/17 02:37 Lab Results, Last 24 hours 08/10/17 08/10/17 02:37 02:37 WBC 7.9 Hgb 10.8 L Hct 33.8 L Plt Count 579 H Sodium 139 Potassium 3.6 Chloride 105 Carbon Dioxide 26 BUN 9 Creatinine 0.67 L Glucose 125 H Calcium 8.6 Magnesium 1.6 - Imaging Chest Xray: image reviewed (No pneumothorax. Minimal atelectasis/infiltrates.) - VTE Documentation of Mechanical Device: Intermittent pneumatic compression device Consult Discharge Plan - Plan Referrals: NONE,PCP [Primary Care Provider] -
--- NOTE | 2017-08-10 11:02 | Internal Med Progress Note ---
Date of Encounter: 08/10/17 Time of Encounter: 11:00 - Assessment and plan (1) Pericardial effusion with cardiac tamponade Current Visit: Yes Status: Acute Assessment and plan: Admitted with acute unexplained pericardial effusion and cardiac tamponade, status post emergent pericardial window. Chest tubes have been removed today. stable per cardiothoracic surgery. Continue pain control with when necessary IV Dilaudid and oral Percocet- will decrease IV pain meds in anticipation of discharge tomorrow; Encourage ambulation, incentive spirometry. Pericardial fluid Gram stain and culture negative, AFB smears negative. 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 Rheumatoid factor slightly elevated at 52. Complement C4 low; Case d/w Rheumatology, patient will be given outpatient appointment in 1-2 weeks; (2) Atrial fibrillation with RVR Current Visit: Yes Status: Resolved (3) Acute respiratory failure with hypoxia Current Visit: Yes Status: Resolved - Subjective Interval history: Doing well; chest tubes have been removed today; ambulates independently when pain is controlled; however continues to require IV Dilaudid, and requests to stay another night; no fever/chills, nausea/vomiting, dyspnea; - Constitutional Vitals: Temp Pulse Resp BP Pulse Ox 97.7 F 96 14 136/81 95 08/10/17 07:19 08/10/17 09:20 08/10/17 08:43 08/10/17 07:19 08/10/17 08:43 General appearance: Present: A&O X 3, morbidly obese, answers questions appropriately - Respiratory Respiratory exam: Present: decreased breath sounds (slightly decreased at left base), CTAB. Absent: accessory muscle use, rales, rhonchi, wheezes - Cardiovascular Cardiovascular exam: Present: RRR, +S1, +S2. Absent: diastolic murmur, gallop, rubs, systolic murmur - GI/Abdominal GI/Abdominal exam: Present: normal bowel sounds, soft (obese), no peritoneal signs. Absent: distended, tenderness Internal Medicine: Result - Labs CBC & Chem 7: 08/10/17 02:37 08/10/17 02:37 Labs: Short CBC 08/10/17 Range/Units 02:37 WBC 7.9 (4.3-11.1) K/mcL Hgb 10.8 L (12.9-16.9) g/dL Hct 33.8 L (37.5-50.1) % Plt Count 579 H (140-400) K/mcL Neutrophils # 3.5 (1.6-8.9) K/mcL BMP 08/10/17 02:37 Sodium 139 Potassium 3.6 Chloride 105 Carbon Dioxide 26 BUN 9 Creatinine 0.67 L Glucose 125 H Calcium 8.6 - ABG Interpretation ABG results: ABG ABG pH 7.39 pH Units (7.32-7.45) 08/06/17 04:15 ABG pCO2 41 mmHg (35-45) 08/06/17 04:15 ABG pO2 70 mmHg (85-104) L 08/06/17 04:15 ABG O2 Saturation 94 % (95-98) L 08/06/17 04:15 PT/INR, D-dimer PT 16.3 Seconds (9.4-12.1) H 08/06/17 04:23 - Impressions Impressions Chest X-Ray 08/10/17 06:00 IMPRESSION: Improved aeration of the lungs. Residual airspace disease remains at the lung bases, left greater than right. D/ / Jag Seymour MD / Jag Seymour MD Interpreting Provider: Jag Seymour MD - VTE Documentation of Mechanical Device: Intermittent pneumatic compression device Consult Discharge Plan - Plan Referrals: Caroline Tolliver CNP [Partnered Physician] - 08/24/17 9:00 am (PLEASE TAKE THE NEW PATIENT PACKET WITH YOU FILLED OUT TO YOUR APPOINTMENT. TAKE PICTURE ID, INSURANCE CARD, ALL MEDICATIONS IN THE BOTTLES TO YOUR APPOINTMENT. SHOW UP 15 MINUTES EARLY. IF YOU HAVE TO CANCEL PLEASE CALL [phone] TO CANCEL WITHIN 24 HOURS OF YOUR APPOINTMENT) Grayson Calderon MD [Partnered Physician] - 08/27/17 1:40 pm Maurice Turner DO [Partnered Physician] - 08/17/17 11:45 am
[2017-08-10] MEDS ORDERED: 0.9 % Sodium Chloride 500 ML ONE (20:16)
[2017-08-11] MEDS: *HR* HYDROmorphone (PF) 1 MG/ML SYRINGE IVP PRN (01:36)
[2017-08-11] MEDS: Ibuprofen 600 MG TABLET PO SCH ×2 (03:45→12:13)
[2017-08-11] MEDS: *HR* OxyCODONE/APAP 10/325 TABLET PO PRN ×2 (03:46→08:16)
[2017-08-11 05:33] LABS: Basophils # 0.1 K/mcL (0.0-0.2); Basophils % 0.6 %; Eosinophils # 0.8 K/mcL (0.0-0.6); Eosinophils % 8.2 %; Hematocrit 32.7 % (37.5-50.1); Hemoglobin 10.6 g/dL (12.9-16.9); Immature Granulocytes % 2.2 % (0-4); Lymphocytes # 2.8 K/mcL (0.6-4.6); Lymphocytes % 27.6 %; Mean Corpuscular HGB Conc 32.4 g/dL (31.6-35.5); Mean Corpuscular Hemoglobin 29.7 pg (28.0-33.3); Mean Corpuscular Volume 91.6 fL (83.0-100.0); Mean Platelet Volume 9.5 fL (9.4-12.4); Monocytes # 0.9 K/mcL (0.0-1.3); Monocytes % 8.6 %; Neutrophils # 5.4 K/mcL (1.6-8.9); Platelet Count 532 K/mcL (140-400); Red Blood Count 3.57 M/mcL (4.19-5.50); Red Cell Distribution Width 13.3 % (11.5-14.5); Segmented Neutrophils % 52.8 %
[2017-08-11 05:41] LABS: BUN/Creatinine Ratio 13 (6-26); Blood Urea Nitrogen 10 mg/dL (8-26); Calcium 8.6 mg/dL (8.6-10.8); Carbon Dioxide 28 mEq/L (19-29); Chloride 103 mEq/L (98-109); Glucose 97 mg/dL (70-99); Magnesium 1.7 mg/dL (1.6-2.6); Osmolality,Calculated 287 (280-300); Potassium 3.9 mEq/L (3.5-4.5); Sodium 139 mEq/L (136-145); eGFR For African Americans > 60 (> 60); eGFR For Non-African Americans > 60 (> 60)
[2017-08-11] MEDS: *HR* Heparin 5,000 UNIT/ML VIAL SQ SCH (06:10)
[2017-08-11] MEDS: Colchicine 0.6 MG TABLET PO SCH (08:16)
--- NOTE | 2017-08-11 09:33 | Cardiothoracic Progress Note ---
Date of Encounter: 08/11/17 Time of Encounter: 09:31 - Assessment and plan (1) Pericardial effusion Current Visit: Yes Status: Acute The assessment and plan as outlined above was discussed with the patient and/or family members who expressed understanding and agreement. All questions were answered. The patient is doing well. He is okay for discharge from my standpoint. He should see Dr. Calderon in the office in 4 weeks for a postoperative check. - Subjective Interval history: The patient has no complaints. Vital Signs, Last 4 Hours Temp Pulse Resp BP Pulse Ox 08/11/17 08:25 87 08/11/17 08:24 87 16 08/11/17 08:18 88 08/11/17 07:59 16 96 08/11/17 07:43 97.8 F 79 16 125/83 96 08/11/17 07:30 98.1 F 82 16 130/85 98 Oxgyen Flow Rate Oxygen Flow Rate (LPM) 2 Clinical Data, last 8 Hours Output, Urine Amount 700 Weight 08/09/17 08/10/17 08/11/17 23:59 23:59 23:59 Weight 132.1 kg 133.5 kg 134 kg Lungs are clear to percussion and auscultation. Heart is in a normal sinus rhythm. All incisions are healing well without signs of infection and the sternum is stable. - Labs 08/11/17 04:27 08/11/17 04:27 Lab Results, Last 24 hours 08/11/17 08/11/17 04:27 04:27 WBC 10.3 Hgb 10.6 L Hct 32.7 L Plt Count 532 H Sodium 139 Potassium 3.9 Chloride 103 Carbon Dioxide 28 BUN 10 Creatinine 0.75 Glucose 97 Calcium 8.6 Magnesium 1.7 - VTE Documentation of Mechanical Device: Intermittent pneumatic compression device Consult Discharge Plan - Plan Referrals: Caroline Tolliver CNP [Partnered Physician] - 08/24/17 9:00 am (PLEASE TAKE THE NEW PATIENT PACKET WITH YOU FILLED OUT TO YOUR APPOINTMENT. TAKE PICTURE ID, INSURANCE CARD, ALL MEDICATIONS IN THE BOTTLES TO YOUR APPOINTMENT. SHOW UP 15 MINUTES EARLY. IF YOU HAVE TO CANCEL PLEASE CALL [phone] TO CANCEL WITHIN 24 HOURS OF YOUR APPOINTMENT) Grayson Calderon MD [Partnered Physician] - 08/27/17 1:40 pm Maurice uTrner DO [Partnered Physician] - 08/17/17 11:45 am
--- NOTE | 2017-08-11 09:51 | Internal Med Progress Note ---
<Irwin Ta - Last Filed: 08/11/17 12:00> Date of Encounter: 08/11/17 Time of Encounter: 09:41 - Assessment and plan (1) Pericardial effusion with cardiac tamponade Status: Acute Assessment and plan: Chest tubes removed yesterday and patient stable per cardiothoracic surgery. Patient feels his pain is well-controlled and requests to go home. Continue ambulation, incentive spirometry Pericardial fluid Gram stain and culture negative, AFB smears negative. 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 Rheumatoid factor slightly elevated at 52. Complement C4 low; Case d/w Rheumatology, patient will be given outpatient appointment in 1-2 weeks (2) Atrial fibrillation with RVR Status: Resolved Assessment and plan: Had episodes of atrial fibrillation likely related to pericarditis / effusion. Continue telemetry, no further episodes at this time. (3) Acute respiratory failure with hypoxia Status: Resolved Assessment and plan: Related to pericarditis. Status post successful extubation. Continue supplemental oxygen, wean down FiO2 as tolerated. - Subjective Interval history: 32 yo otherwise healthy male presented to ER 08/05 for SOB and chest tightness, at urgent care prior, was found to be in a-fib RVR with rate of 200 refractory to adenosine. Echocardiogram showed pericardial effusion and tamponade, pericardiocentesis was unsuccessful, pericardial window performed by CT surgery and drained 1.5 L. Doing well; chest tubes removed yesterday; ambulates independently when pain is controlled; patient would like to go home; no fever/chills, nausea/vomiting, dyspnea - Constitutional Vitals: Temp Pulse Resp BP Pulse Ox 97.8 F 87 16 125/83 96 08/11/17 07:43 08/11/17 08:25 08/11/17 08:24 08/11/17 07:43 08/11/17 07:59 General appearance: Present: A&O X 3, morbidly obese, answers questions appropriately - Respiratory Respiratory exam: Present: decreased breath sounds, CTAB. Absent: accessory muscle use, rales, rhonchi, wheezes - Cardiovascular Cardiovascular exam: Present: RRR, +S1, +S2. Absent: diastolic murmur, gallop, rubs, systolic murmur - GI/Abdominal GI/Abdominal exam: Present: normal bowel sounds, soft, no peritoneal signs. Absent: distended, tenderness Internal Medicine: Result - Labs CBC & Chem 7: 08/11/17 04:27 08/11/17 04:27 Labs: Short CBC 08/11/17 Range/Units 04:27 WBC 10.3 (4.3-11.1) K/mcL Hgb 10.6 L (12.9-16.9) g/dL Hct 32.7 L (37.5-50.1) % Plt Count 532 H (140-400) K/mcL Neutrophils # 5.4 (1.6-8.9) K/mcL BMP 08/11/17 04:27 Sodium 139 Potassium 3.9 Chloride 103 Carbon Dioxide 28 BUN 10 Creatinine 0.75 Glucose 97 Calcium 8.6 - ABG Interpretation ABG results: ABG ABG pH 7.39 pH Units (7.32-7.45) 08/06/17 04:15 ABG pCO2 41 mmHg (35-45) 08/06/17 04:15 ABG pO2 70 mmHg (85-104) L 08/06/17 04:15 ABG O2 Saturation 94 % (95-98) L 08/06/17 04:15 PT/INR, D-dimer PT 16.3 Seconds (9.4-12.1) H 08/06/17 04:23 - VTE Documentation of Mechanical Device: Intermittent pneumatic compression device Consult Discharge Plan - Plan Instructions: Atrial Fibrillation (DC), Pericardial Effusion (DC), Cardiac Tamponade (DC) Additional Instructions: If you have questions that are not answered by these instructions, please call your nurse or doctor. * Do not drive for 1 month or until allowed by your surgeon. * If you smoke, STOP SMOKING. Smoking or tobacco use significantly increases your risk of heart disease because nicotine causes the arteries to narrow or constrict. It also causes fats to stick to the artery. Your chances of occluding your new bypasses or having a heart attack are greatly increased if you continue to smoke. For more information call the patient education line for smoking cessation 3-276-SKFN-NOW. * Continue to use your incentive Spirometry about 6 times each day (1 use = 5 to 10 breaths) for 1 month. This important to help prevent pneumonia. * Follow your Phase I Cardiac Rehab Activity Guide. * You may climb stairs, one step at a time, as you are able. * Do not lift more than 10 pounds (1/2 gallon of milk = 5 pounds), vacuum, sweep , shovel snow, rake leaves, or do anything that could pull on the chest for 2 months. * You may resume sexual activity when you feel ready. * Continue to wear JOSUE hose during the day for about 1 month. Remove and wash daily in mild detergent. * Gently wash incision with soap and water daily. Rinse well and pat dry with a clean towel. Do not soak your incisions under water. Do not use any powders, lotions, creams or ointments on your incision. * Chest tube sites may drain fluid for 1-2 weeks and can be covered with dry gauze. They also may become reddened or inflamed as they heal and can be cleaned twice a day with hydrogen peroxide. * Take your pulse once a day. If it is less than 60 or greater than 110 beats per minute at rest, call your Proofing Machine Operator, . * Take your temperature by mouth once a day for 2 weeks. Call your surgeon of it is above 101 degrees. * Call the surgeon if you notice drainage or redness at your incision lines. * Weigh yourself each day for 2 weeks. Call your doctor if you notice and increase in your weight of 3 pounds or more in a day or increasing shortness of breath. * If you experience chest pain, shortness of breath, dizziness or extreme tiredness, stop and rest. Please notify your doctor if you experience any of these symptoms. * If you experience any of these symptoms and they are not relieved with rest, please call 911. Referrals: Caroline Tolliver CNP [Partnered Physician] - 08/24/17 9:00 am (PLEASE TAKE THE NEW PATIENT PACKET WITH YOU FILLED OUT TO YOUR APPOINTMENT. TAKE PICTURE ID, INSURANCE CARD, ALL MEDICATIONS IN THE BOTTLES TO YOUR APPOINTMENT. SHOW UP 15 MINUTES EARLY. IF YOU HAVE TO CANCEL PLEASE CALL [phone] TO CANCEL WITHIN 24 HOURS OF YOUR APPOINTMENT) Grayson Calderon MD [Partnered Physician] - 08/27/17 1:40 pm Maurice Turner DO [Partnered Physician] - 08/17/17 11:45 am Prescriptions: OxyCODONE/APAP 10/325 [Percocet 10/325 MG] 1 each PO Q6HR PRN #40 tablet PRN Reason: Moderate Pain Colchicine [Colcrys] 0.6 mg PO BID #60 tablet Docusate [Colace] 100 mg PO BID #20 capsule Ibuprofen [Motrin] 600 mg PO Q8H #30 tablet Omeprazole [PriLOSEC] 20 mg PO DAILY #10 capsule. <Spring Layne - Last Filed: 08/11/17 17:17> Date of Encounter: 08/11/17 Time of Encounter: 10:02 - Constitutional Vitals: Temp Pulse Resp BP Pulse Ox 98.2 F 86 20 115/70 99 08/11/17 10:59 08/11/17 12:15 08/11/17 12:15 08/11/17 10:59 08/11/17 11:08 Internal Medicine: Result - Labs CBC & Chem 7: 08/11/17 04:27 08/11/17 04:27 Labs: Short CBC 08/11/17 Range/Units 04:27 WBC 10.3 (4.3-11.1) K/mcL Hgb 10.6 L (12.9-16.9) g/dL Hct 32.7 L (37.5-50.1) % Plt Count 532 H (140-400) K/mcL Neutrophils # 5.4 (1.6-8.9) K/mcL BMP 08/11/17 04:27 Sodium 139 Potassium 3.9 Chloride 103 Carbon Dioxide 28 BUN 10 Creatinine 0.75 Glucose 97 Calcium 8.6 - ABG Interpretation ABG results: ABG ABG pH 7.39 pH Units (7.32-7.45) 08/06/17 04:15 ABG pCO2 41 mmHg (35-45) 08/06/17 04:15 ABG pO2 70 mmHg (85-104) L 08/06/17 04:15 ABG O2 Saturation 94 % (95-98) L 08/06/17 04:15 PT/INR, D-dimer PT 16.3 Seconds (9.4-12.1) H 08/06/17 04:23 - Attending Attestation Patient independently seen and examined case discussed with resident physician Irwin Ta, and I agree with his documented findings,assessment, and plan.
[2017-08-11 11:01] VITALS: BP 115/70
--- NOTE | 2017-08-11 12:12 | Discharge Summary ---
<Irwin Ta - Last Filed: 08/11/17 12:49> Date of Encounter: 08/11/17 Time of Encounter: 12:07 - Discharge Diagnosis (1) Pericardial effusion with cardiac tamponade Priority: Primary Status: Acute (2) Atrial fibrillation with RVR Priority: Primary Status: Resolved (3) Acute respiratory failure with hypoxia Priority: Primary Status: Resolved - Discharge Medications Prescriptions: OxyCODONE/APAP 10/325 [Percocet 10/325 MG] 1 each PO Q6HR PRN #40 tablet PRN Reason: Moderate Pain Colchicine [Colcrys] 0.6 mg PO BID #60 tablet Docusate [Colace] 100 mg PO BID #20 capsule Ibuprofen [Motrin] 600 mg PO Q8H #30 tablet Omeprazole [PriLOSEC] 20 mg PO DAILY #10 capsule.dr Pan Medications: Colchicine [Colcrys] 0.6 mg PO BID #60 tablet 08/11/17 [Rx] Docusate [Colace] 100 mg PO BID #20 capsule 08/11/17 [Rx] Ibuprofen [Motrin] 600 mg PO Q8H #30 tablet 08/11/17 [Rx] Omeprazole [PriLOSEC] 20 mg PO DAILY #10 capsule. 08/11/17 [Rx] OxyCODONE/APAP 10/325 [Percocet 10/325 MG] 1 each PO Q6HR PRN #40 tablet [Rx] Allergies/Adverse Reactions: 3 Allergy/AdvReac Type Severity Reaction Status Date / Time Penicillins Allergy Anaphylaxis Verified 07/21/17 00:22 Date of admission: 08/05/17 12:39 Primary care physician: PCP NONE Consults: 08/05/17 14:56 Consult to Cardiac Rehabilitation-Phase1 [CONS] Routine Comment: Reason for Consult: Post open heart Call Completed: Yes Discharging clinician: Spring Layne Anticipated date of discharge: 08/11/17 - Patient Status Disposition: Home, Self-Care Condition: Good Functional capacity at discharge: independent ambulation Overall status at discharge: patient is progressing back to baseline - Discharge Instructions Instructions: Atrial Fibrillation (DC), Pericardial Effusion (DC), Cardiac Tamponade (DC) Follow Up With: Caroline Tolliver CNP [Partnered Physician] - 08/24/17 9:00 am (PLEASE TAKE THE NEW PATIENT PACKET WITH YOU FILLED OUT TO YOUR APPOINTMENT. TAKE PICTURE ID, INSURANCE CARD, ALL MEDICATIONS IN THE BOTTLES TO YOUR APPOINTMENT. SHOW UP 15 MINUTES EARLY. IF YOU HAVE TO CANCEL PLEASE CALL [phone] TO CANCEL WITHIN 24 HOURS OF YOUR APPOINTMENT) Grayson Calderon MD [Partnered Physician] - 08/27/17 1:40 pm Maurice Turner DO [Partnered Physician] - 08/17/17 11:45 am Forms: ED Satisfaction Letter Additional Instructions: If you have questions that are not answered by these instructions, please call your nurse or doctor. * Do not drive for 1 month or until allowed by your surgeon. * If you smoke, STOP SMOKING. Smoking or tobacco use significantly increases your risk of heart disease because nicotine causes the arteries to narrow or constrict. It also causes fats to stick to the artery. Your chances of occluding your new bypasses or having a heart attack are greatly increased if you continue to smoke. For more information call the patient education line for smoking cessation 6-726-UEMW-NOW. * Continue to use your incentive Spirometry about 6 times each day (1 use = 5 to 10 breaths) for 1 month. This important to help prevent pneumonia. * Follow your Phase I Cardiac Rehab Activity Guide. * You may climb stairs, one step at a time, as you are able. * Do not lift more than 10 pounds (1/2 gallon of milk = 5 pounds), vacuum, sweep , shovel snow, rake leaves, or do anything that could pull on the chest for 2 months. * You may resume sexual activity when you feel ready. * Continue to wear JOSUE hose during the day for about 1 month. Remove and wash daily in mild detergent. * Gently wash incision with soap and water daily. Rinse well and pat dry with a clean towel. Do not soak your incisions under water. Do not use any powders, lotions, creams or ointments on your incision. * Chest tube sites may drain fluid for 1-2 weeks and can be covered with dry gauze. They also may become reddened or inflamed as they heal and can be cleaned twice a day with hydrogen peroxide. * Take your pulse once a day. If it is less than 60 or greater than 110 beats per minute at rest, call your Senior Hris Analyst, . * Take your temperature by mouth once a day for 2 weeks. Call your surgeon of it is above 101 degrees. * Call the surgeon if you notice drainage or redness at your incision lines. * Weigh yourself each day for 2 weeks. Call your doctor if you notice and increase in your weight of 3 pounds or more in a day or increasing shortness of breath. * If you experience chest pain, shortness of breath, dizziness or extreme tiredness, stop and rest. Please notify your doctor if you experience any of these symptoms. * If you experience any of these symptoms and they are not relieved with rest, please call 911. - Diet and Activity Activity: return to work once cleared by your PCP/specialist Diet: advance to your usual diet Hospital course: 32-year-old otherwise healthy male hospitalized at [facility] from 08/05-08/11/17. Patient had presented to a local urgent care on with shortness of breath and chest tightness, was found to be in A. fib RVR with rate of 200 refractory to adenosine. Since 2 [facility] , echocardiogram showed pericardial effusion and tamponade on. Pericardiocentesis was unsuccessful so pericardial window was performed by cardiothoracic surgery who was able to drain 1.5 L. Patient has done well during his hospital stay, chest tubes were removed 08/10 and patient is able to ambulate independently. No fever/chills, nausea/vomiting, or dyspnea. Plan is for patient to follow-up with cardiothoracic surgery Dr. Calderon in 4 weeks, cardiology in 1 week, and rheumatology in 1-2 weeks. - Time Spent with Patient Total time spent providing and/or coordinating discharge services: Greater than 30 minutes - Constitutional Vitals: Temp Pulse Resp BP Pulse Ox 98.2 F 88 16 115/70 99 08/11/17 10:59 08/11/17 10:59 08/11/17 11:08 08/11/17 10:59 08/11/17 11:08 General appearance: Present: A&O X 3, morbidly obese, answers questions appropriately - Respiratory Respiratory exam: Present: decreased breath sounds, CTAB. Absent: accessory muscle use - Cardiovascular Cardiovascular exam: Present: RRR, +S1, +S2. Absent: diastolic murmur, gallop, rubs, systolic murmur - GI/Abdominal GI/Abdominal exam: Present: soft, no peritoneal signs. Absent: distended, tenderness - VTE Documentation of Mechanical Device: Intermittent pneumatic compression device <Spring Layne - Last Filed: 08/11/17 17:20> Date of Encounter: 08/11/17 Time of Encounter: 10:03 Date of admission: 08/05/17 12:39 Primary care physician: PCP NONE Consults: 08/05/17 14:56 Consult to Cardiac Rehabilitation-Phase1 [CONS] Routine Comment: Reason for Consult: Post open heart Call Completed: Yes - Patient Status Functional capacity at discharge: independent ambulation Overall status at discharge: patient is progressing back to baseline - Diet and Activity Activity: increase activity as tolerated, return to work once cleared by your PCP/specialist Diet: advance to your usual diet Hospital course: Mr. Quinonez is a 32 year old male - Time Spent with Patient Total time spent providing and/or coordinating discharge services: - Constitutional Vitals: Temp Pulse Resp BP Pulse Ox 98.2 F 86 20 115/70 99 08/11/17 10:59 08/11/17 12:15 08/11/17 12:15 08/11/17 10:59 08/11/17 11:08 - Attending Attestation Patient is a 32-year-old male who was admitted for acute shortness of breath and chest tightness and was found to have pericardial effusion and cardiac tamponade. He underwent pericardial window for cardiothoracic surgery. He tolerated the procedure well, and his chest tubes were removed on August 10 patient has been ambulating well, with uncomplicated postoperative course. Pain has been controlled with by mouth pain medication. he has been cleared for discharge by cardiothoracic surgery. Patient will be discharged to home with follow-up with primary care physician, cardiology, cardiothoracic surgery, and rheumatology after discharge. Case was discussed with resident physician, Irwin Ta, I agree with his documented findings, assessment, and plan, except as listed above.
== END 2017-08-11 14:05 | disposition home or self-care (01) | DRG 270 ==
LOC: EMEROO 10:50 → ICNU 12:12 → SUATTDRO 12:39 → ICNU 12:39 → 2NNU 08-07 17:05
PROVIDERS: ADMIT Emergency Medicine; ATTEND Internal Medicine